=== PATIENT | female | born 1955 | race Two or more races ===

== ENCOUNTER 2025-01-16 11:33 | Inpatient (IN) | payer MEDICARE, MEDICAID, SELFPAY ==
--- NOTE | 2025-01-16 | XR_ITS ---
Examinations: MRI Brain without intravenous contrast. MRA brain without intravenous contrast. 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 The optic chiasm and infundibular stalk are not remarkable. Prepontine and interpeduncular cisterns are not enlarged. No localized enlargement of the medulla or yesi. Fourth ventricle and cerebellar tonsils normal in position. Subacute hemorrhage is not seen. Fourth ventricle is midline. Mass in the cerebellopontine angle region is not evident. 7th and 8th nerve complexes exhibits symmetry. Globes are symmetrical with no retro-orbital mass. Increased white matter signal evident, especially left cerebellar hemisphere left occipital lobe Diffusion-weighted images demonstrate large focus restricted diffusion left cerebellar hemisphere left vermis left cerebellar peduncle smaller foci restricted diffusion left occipital lobe left temporal lobe Mass-effect upon the ventricular system is not identified. MRA carotid images degraded by patient motion. MRA brain images no large vessel occlusions Impression: Acute infarcts left cerebellar hemisphere, left vermis, left cerebellar peduncle, left occipital lobe, left temporal lobe
[2025-01-16 11:39] VITALS: BP 167/78; PULSE 61; RESP 18; TEMP 36.9; O2SAT 91
[2025-01-16 11:40] VITALS: PULSE 67; RESP 20; BMI 26.6
--- NOTE | 2025-01-16 11:51 | EDNOTE_ITS ---
ED General RME/HPI General Chief complaint: Nausea/Vomiting/Diarrhea Stated complaint: NAUSEA, DIZZINESS Time Seen by Provider: 01/16/25 11:39 Arrival date/time: 01/16/25 11:33 RME / HPI RME / HPI narrative: DR. ACKERMAN MAIN ED EVALUATION: 69 year old female with past medical history significant for bipolar disorder, schizophrenia, depression, anxiety presents to the Emergency Department with complaints of dizziness, nausea, and vomiting. She states she had dizziness first 2 days ago and then yesterday nausea and vomiting. She describes her dizziness as the room spinning. Patient also reports a headache for 2 days. Related Data Home Medications ?Medication ?Instructions ?Recorded ?Confirmed divalproex 500 mg tablet,delayed 2 tab PO HS 05/18/22 05/18/22 release trihexyphenidyl 5 mg tablet 1 tab PO BIDWM 05/18/22 ziprasidone HCl 80 mg capsule 1 cap PO BID 05/18/22 Allergies Allergy/AdvReac Type Severity Reaction Status Date / Time No Known Allergies Allergy Verified 01/16/25 11:55 Review of Systems Review of Systems Systems Reviewed: All systems reviewed, normal except as documented Past Medical History Past Medical History PSYCHO/SOCIAL: Positive Schizophrenia and Bipolar Disorder Social History SMOKING STATUS: Never smoker SECOND HAND EXPOSURE: No SUBSTANCE USE: does not use ALCOHOL: Never ED Exam Narrative Physical exam: GENERAL APPEARANCE: AxOx4, generally well-appearing, no acute distress, actively nauseous and vomiting HEENT: NC, AT. MMM. EOMI, clear conjunctiva, oropharynx clear; lateral nystagmus NECK: Supple without lymphadenopathy. No stiffness or restricted ROM. HEART: Normal rate and regular rhythm, normal S1/S1, no m/r/g LUNGS: CTAB, moving air well. No crackles or wheezes are heard. ABDOMEN: Soft, nontender, nondistended with good bowel sounds heard. BACK: No midline C/T/L spine pain or deformity, No CVAT, no obvious deformity. EXTREMITIES: Without cyanosis, clubbing or edema. MUSCULOSKELETAL: FROM of all major joints, no chest tenderness NEUROLOGICAL: Grossly nonfocal. Alert and oriented, moving all 4 extremities. CN not formally tested but appear grossly intact. Observed to ambulate with normal gait. Skin: Warm and dry without any rash. Course Quality Measures none Orders Category Date Time Status EKG (ED ONLY) *Do not use* NOW Care 01/16/25 14:[address] angio stroke protocol Stat Exams 01/16/25 13:[address] head/brain wo con Stat Exams 01/16/25 11:53 Completed EKG (ED Only) Stat Exams 01/16/25 14:04 Ordered XR chest 1V Stat Exams 01/16/25 11:53 Completed CBC Stat Lab 01/16/25 11:57 Completed CMP [Comprehensive Metabolic Panel] Stat Lab 01/16/25 11:57 Completed Misc Send Out* Stat Lab 01/16/25 11:57 Received Partial Thromboplastin Time Stat Lab 01/16/25 14:55 Completed Prothrombin Time with INR Stat Lab 01/16/25 14:55 Completed Troponin I Stat Lab 01/16/25 14:55 Completed Urinalysis Stat Lab 01/16/25 15:40 Completed Aspirin Med 01/16/25 14:04 Discontinued 325 mg PO X1 ONE LORazepam [Ativan Inj] Med 01/16/25 12:08 Discontinued 1 mg IVP X1 ONE Sodium Chloride 0.9% 500 ml [Ns] 500 ml Med 01/16/25 11:51 Discontinued IV 999 mls/hr Reevaluation(s) Reevaluation #1: Spoke with alum plant operator, Oli Navarrete, concerning diagnosis, treatment and need for admission he is amenable to admission Time: 15:32 Vital Signs Vital signs: Vital Signs Temperature 98.5 F 01/16/25 11:39 Pulse Rate 61 01/16/25 11:39 Respiratory Rate 18 01/16/25 11:39 Blood Pressure 167/78 H 01/16/25 11:39 Pulse Oximetry (%) 91 L 01/16/25 11:39 Procedures -ED EKG Interpretation #1: Date of EK01/16/25 Time of EK:42 Rate: 50 Interpretation: Interpreted by me Additional EKG comment: sinus bradycardia, rate 50, widen QRS, IVCD pattern, nonspecific T wave changes, no acute ST wave changes MDM Patient data External records reviewed:: [facility] previous records (Reviewed last admission discharge dated 05/20/22, patient admitted for the following: AMS) Clinical information provided by:: patient Social determinants that could affect healthcare access:: mental health Patient has the following chronic illnesses:: bipolar disorder, schizophrenia, depression, anxiety How is presenting disease/condition affected by chronic disease/condition?: u neffected by Evaluation data The following diagnostics were reviewed and interpreted by me:: lab results and radiology exam(s) Lab and/or radiology exams considered but not ordered:: none Interpretation Summary: Procedure(s): XR chest 1V Accession Number(s): [id number] cc: Emile Ackerman MD; Francisco Hernandez MD~ Examination: AP chest single view Technique one AP portable semiupright chest single view Exam date and time: January 16, 2025 12:16 PM Comparison May 18, 2022 INDICATIONS: Shortness of breath today. FINDINGS: Mild heart failure Mild enlargement cardiac contour Prominent vascular congestion Stable nodules right upper lobe compared to 2021 exam Moderate osteopenia IMPRESSION: Mild heart failure Dictated By: Francisco Hernandez MD Procedure(s): CT head/brain wo con Accession Number(s): [id number] cc: Emile Ackerman MD; Francisco Hernandez MD; NO PRIMARY/FAMILY,PHYSICIAN~ Examination: CT brain head without contrast. 2-D sagittal coronal reconstructions Date and time of exam:07/18/2025 at 1342 hours INDICATIONS: Headache vertigo beginning this morning CTDI: vol (mGy):53.8 DLP: (mGycm):1107 Technique: Multiple CT axial sections of the brain have been obtained, 5 mm slice thickness. Contrast has not been administered. 2-D sagittal, coronal reconstructions have been obtained Low dose protocols were performed. One or more of the following dose reduction techniques were used; automated exposure control, adjustment of the mA and/or KV according to patient size, use of iterative reconstruction technique. Findings: Large acute nonhemorrhagic infarct in the left cerebellar hemisphere, at least 4.7 x 5.0 cm in dimension Mild mass effect upon the fourth ventricle with partial effacement Ventricles are not enlarged Cranial vault intact No acute hemorrhage either intra or extra-axial IMPRESSION: Findings most consistent with large acute nonhemorrhagic infarct left cerebellar hemisphere Dictated By: Francisco Hernandez MD Procedure(s): CT angio stroke protocol Accession Number(s): [id number] cc: Emile Ackerman MD; Francisco Hernandez MD; NO PRIMARY/FAMILY,PHYSICIAN~ Examination: CTA carotids with intravenous contrast CTA brain, head with intravenous contrast. 2-D sagittal, coronal reconstructions. 3-D reconstructions. Exam date and time: January 16, 2025 1427 hours INDICATIONS: Stroke alert, acute nonhemorrhagic infarct left cerebellar hemisphere on CT brain scan January 16, 2025 1342 hours CTDI: vol (mGy) 20.3 DLP: (mGycm) 449 Technique: Multiple CTA axial brain, head carotid images post intravenous contrast injection 100 cc, Isovue-370. 2-D sagittal, coronal reconstructions. 3-D reconstructions, 3-D post processing including vascular maximum intensity projection images. Low dose protocols were performed. One or more of the following dose reduction techniques were used; automated exposure control, adjustment of the mA and/or KV according to patient size, use of iterative reconstruction technique. Findings: Calcified 16mm right thyroid nodule Prominent vascular congestion No significant common carotid carotid bifurcation or internal carotid artery stenoses Dominant left vertebral artery with no critical stenoses Intracranial vertebral arteries basilar artery and posterior cerebral artery branches do fill [place] internal carotid arteries M1 segments middle cerebral arteries middle cerebral artery trifurcation vessels demonstrate no large vessel occlusions as well as anterior cerebral arteries IMPRESSION: No significant neck arterial stenoses No cerebral large vessel arterial occlusions or thrombus Dictated By: Francisco Hernandez MD Medications Medications considered but not ordered:: none Medication administrations:: Medication Administration History Acetaminophen (Acetaminophen 325 Mg Tablet) 650 mg PO Q6H PRN PRN Reason: Pain 1-3 or Fever >100.3 Stop: 02/15/25 15:58 Aspirin (Aspirin Ec 81 Mg Tabec) 81 mg PO QDAY [facility] Stop: 02/16/25 08:59 Atorvastatin Calcium (Atorvastatin Calcium 20 Mg Tablet) 40 mg PO HS [facility] Stop: 02/15/25 20:59 Clopidogrel Bisulfate (Clopidogrel Bisulfate 75 Mg Tablet) 75 mg PO QDAY [facility] Stop: 02/15/25 17:14 Dextrose (Dextrose 50%-Water Inj 50 Ml Syringe) 25 ml IV Q15MIN PRN PRN Reason: BG 50-70 responsive npo pt Stop: 02/15/25 17:05 Dextrose (Dextrose 50%-Water Inj 50 Ml Syringe) 50 ml IV Q15MIN PRN PRN Reason: BG <50 OR BG <70 & pt unresponsive Stop: 02/15/25 17:05 Divalproex Sodium (Divalproex Sod Dr 500 Mg Tablet.Dr) 500 mg PO BID [facility] Stop: 02/15/25 20:59 Glucagon (Glucagon Inj 1 Mg Vial) 1 mg IM Q15MIN PRN PRN Reason: BG <70, and no IV access Heparin Sodium (Porcine) (Heparin Sod Inj 5000 Unit/Ml Vial) 5,000 unit SC Q12HR [facility] Stop: 01/30/25 20:59 Sodium Chloride (Ns) 1,000 mls @ 75 mls/hr IV .[id number] [facility] Stop: 02/15/25 15:59 Last Admin: 01/16/25 16:53 Dose: 75 mls/hr Documented By: KAYODE Insulin Human Lispro (Insulin Lispro (Admelog) 1 Unit/0.01 Ml Unit) 0 unit SC Q6HR [facility]; Protocol Stop: 02/15/25 17:59 Non-Formulary Medication (Trihexyphenidyl Hydrochloride ) 5 mg PO BID [facility] Stop: 02/15/25 20:59 Ondansetron HCl (Ondansetron Inj 2 Mg/Ml Inj 2 Ml) 4 mg IV Q6H PRN; Protocol PRN Reason: NAUSEA OR VOMITING Stop: 02/15/25 15:58 Pantoprazole Sodium (Pantoprazole Inj 40 Mg Vial) 40 mg IVP QDAY [facility] Stop: 02/15/25 16:14 Last Admin: 01/16/25 16:51 Dose: 40 mg Documented By: KAYODE Ziprasidone (Ziprasidone 20 Mg Capsule) 80 mg PO BID [facility] Stop: 02/15/25 20:59 Discontinued Medications Aspirin (Aspirin 325 Mg Tablet) 325 mg PO X1 ONE Stop: 01/16/25 14:05 Last Admin: 01/16/25 14:44 Dose: 325 mg Documented By: ROWENA Sodium Chloride (Ns) 500 mls @ 999 mls/hr IV .Q31M ONE Stop: 01/16/25 12:21 Last Infusion: 01/16/25 13:07 Dose: Infused Documented By: Admin: 01/16/25 12:05 Dose: 999 mls/hr Documented By: KAYODE Lorazepam (Lorazepam 2 Mg/Ml Vial) 1 mg IVP X1 ONE Stop: 01/16/25 12:09 Last Admin: 01/16/25 12:16 Dose: 1 mg Documented By: KAYODE see above Consultations Consultation(s) initiated? (list below): Yes Consultation #1 (Physician, Specialty, Details): Discussed test HPI, PMHx, lab, radiology results and/or management with hospitalist. Will admit for further evaluation and management. Accepts patient for admission. Time: 15:34 Diagnosis Differential Diagnosis ED Complaint MDM: nausea and vomiting, dehydration, electrolyte imbalance Most likely diagnosis given after review of the tests above:: CVA Admission Indicated Admission indicated?: indicated Explain why admission is indicated or not indicated:: Diagnoses meet admission criteria. Admission Request Was there a request for admission?: Yes Admission Attestation Admission request attestation: Discussed case with [] from Hospitalist service regarding admission. Discussed patients ED course, exam findings, labs, and radiology results. The Hospitalist [agrees,declines] to accept the patient for admission. Disposition Plan Disposition Plan: Admit Medical Decision Making MDM Narrative MDM Narrative: IChristiana, am scribing for and in the presence of Dr. Ackerman. Differential Diagnosis Differential Diagnosis: nausea and vomiting, dehydration, electrolyte imbalance Lab Data 01/16/25 11:57 01/16/25 11:57 Labs: Lab Results 01/16/25 01/16/25 01/16/25 Range/Units 11:57 14:55 15:40 WBC 14.5 H (3.6-11.0) Thou/mm3 RBC 4.50 (4.00-5.20) Miln/mm3 Hgb 13.7 (12.0-16.0) g/dL Hct 40.3 (36.0-46.0) % MCV 90 (80-100) fL MCH 30.4 (25.0-35.0) pg MCHC 34.0 (31.0-37.0) g/dl RDW Std Deviation 44.9 (36.4-46.3) fL Plt Count 237 (140-440) Thou/mm3 Neut % (Auto) 79 (37-80) % Lymph % (Auto) 14 (10-50) % [place] % (Auto) 6 (0-12) % Eos % (Auto) 0 (0-10) % Baso % (Auto) 0 (0-2.5) % Neut # (Auto) 11.5 H (1.8-7.7) Thou/mm3 Lymph # (Auto) 2.1 (1.0-4.8) Thou/mm3 [place] # (Auto) 0.9 H (0.0-0.8) Thou/mm3 Eos # (Auto) 0.0 (0.0-0.5) Thou/mm3 Baso # (Auto) 0.0 (0.0-0.2) Thou/mm3 Immature Gran # (Auto) 0.04 H (0.00-0.00) Thou/mm3 Absolute Nucleated RBC 0.00 (0.00-0.00) Thou/mm3 Immature Gran % 0 (0-0) % Nucleated RBC % 0 (0) /100 WBC PT 12.4 H (9.0-12.2) Seconds INR 1.1 (0.9-1.3) APTT 27.3 (22.0-36.0) Seconds Sodium 145 (136-145) mMol/L Potassium 4.0 (3.4-5.1) mMol/L Chloride 109 H (98-107) mMol/L Carbon Dioxide 23.9 (20.0-31.0) mMol/L Anion Gap 12 (7-16) BUN 13 (9-23) mg/dL Creatinine 0.8 (0.6-1.3) mg/dL Estim Creat Clear Calc 68.6 (>60) mL/min eGFR > 60 (60 - ) See Note BUN/Creatinine Ratio 16 (12-20) Ratio Glucose 109 H (74-106) mg/dL Calculated Osmolality 289 (275-295) Calcium 9.4 (8.3-10.6) mg/dL Corrected Calcium 9.4 (8.5-10.1) mg/dL Total Bilirubin 0.5 (0.3-1.2) mg/dL AST 20 (0-34) U/L ALT 21 (10-49) U/L Alkaline Phosphatase 75 (46-116) U/L Troponin I 0.113 H* (0.0-0.045) ng/mL Total Protein 7.7 (5.7-8.2) gm/dL Albumin 4.2 (3.4-4.8) gm/dL Globulin 3.5 (2.3-3.5) gm/dL Albumin/Globulin Ratio 1.2 (1.2-2.2) Ur Collection Type Clean Catch Urine Color Yellow (Lt Yel-Yel) Urine Clarity Clear (Clear/Hazy) Urine pH 6.5 (5.0-7.0) Ur Specific [place] 1.020 (1.001-1.035) Urine Protein 1+ A (Neg - Trace) Urine Glucose (UA) Negative (Negative) Urine Ketones 1+ A (Negative) Urine Blood Trace (Negative) Urine Nitrite Negative (Negative) Urine Bilirubin Negative (Negative) Urine Urobilinogen (Auto) Negative (0.0-1.0) mg/dL Ur Leukocyte Esterase Negative (Negative) Urine RBC 14 H (0-3) /hpf Urine WBC 4 (0-5) /hpf Ur Squamous Epith Cells 4 (0-5) /hpf Urine Bacteria None (None) Critical Care Time Critical Care Time Critical Care Time: Yes Total Critical Care Time (min.): 35 Attestation: The high probability of sudden, clinically significant deterioration in the patient?s condition required the highest level of my preparedness to intervene urgently. The services I provided to this patient were to treat and/or prevent clinically significant deterioration. Services included the following: chart data review, reviewing nursing notes and/or old charts, documentation time, client support consultant collaboration regarding findings and treatment options, medication orders and management, direct patient care, vital sign assessments and ordering, interpreting and reviewing diagnostic studies and lab tests. Aggregate critical care time includes only time during which I was engaged in work directly related to the patient?s care, as described above, whether at bedside or elsewhere in the Emergency Department. It did not include time spent performing other reported procedures or the services of residents, students, nurses or physician assistants. Discharge Plan Plan Patient Disposition: Admit Acute Care w/in Hospital Problem List Clinical Impression: Acute CVA (cerebrovascular accident)
[2025-01-16] MEDS: SODIUM CHLORIDE 0.9% 500 ML 500 ML 999 ML IV (12:05)
[2025-01-16 12:07] LABS: Basophils % (Auto) 0 % (0-2.5); Eosinophils % (Auto) 0 % (0-10); Hematocrit 40.3 % (36.0-46.0); Hemoglobin 13.7 g/dL (12.0-16.0); Immature Granulocytes % (Auto) 0 % (0-0); Immature Granulocytes Auto 0.04 Thou/mm3 (0.00-0.00); Lymphocytes # (Auto) 2.1 Thou/mm3 (1.0-4.8); Lymphocytes % (Auto) 14 % (10-50); Mean Corpuscular Hemoglobin 30.4 pg (25.0-35.0); Mean Corpuscular Volume 90 fL (80-100); Monocytes # (Auto) 0.9 Thou/mm3 (0.0-0.8); Monocytes % (Auto) 6 % (0-12); Neutrophils # (Auto) 11.5 Thou/mm3 (1.8-7.7); Neutrophils % (Auto) 79 % (37-80); Nucleated Red Blood Cell % 0 /100 WBC (0); Platelet Count 237 Thou/mm3 (140-440); RDW Standard Deviation 44.9 fL (36.4-46.3); White Blood Count 14.5 Thou/mm3 (3.6-11.0)
[2025-01-16] MEDS: LORazepam 2 MG/ML VIAL 1 MG IVP (12:16)
[2025-01-16 12:18] LABS: Misc Send Out* See Sep Rpt
[2025-01-16 12:25] LABS: Alanine Aminotransferase 21 U/L (10-49); Albumin, Serum 4.2 gm/dL (3.4-4.8); Albumin/Globulin Ratio 1.2 (1.2-2.2); Alkaline Phosphatase 75 U/L (46-116); Anion Gap 12 (7-16); Aspartate Amino Transferase 20 U/L (0-34); BUN/Creatinine Ratio 16 Ratio (12-20); Bilirubin,Total 0.5 mg/dL (0.3-1.2); Blood Urea Nitrogen 13 mg/dL (9-23); Calcium 9.4 mg/dL (8.3-10.6); Calcium (Corrected) 9.4 mg/dL (8.5-10.1); Carbon Dioxide 23.9 mMol/L (20.0-31.0); Chloride 109 mMol/L (98-107); Creatinine (Component) 0.8 mg/dL (0.6-1.3); Estimated Creatinine Clearance 68.6 mL/min (>60); Globulin 3.5 gm/dL (2.3-3.5); Glucose 109 mg/dL (74-106); Osmolality,Calculated 289 (275-295); Sodium 145 mMol/L (136-145); Total Protein 7.7 gm/dL (5.7-8.2); eGFR > 60 See Note
[2025-01-16 13:14] VITALS: BP 123/62; PULSE 54; RESP 21; TEMP 36.2; O2SAT 98
--- NOTE | 2025-01-16 13:55 | XR_ITS ---
Examination: CTA carotids with intravenous contrast CTA brain, head with intravenous contrast. 2-D sagittal, coronal reconstructions. 3-D reconstructions. Exam date and time: January 16, 2025 1427 hours INDICATIONS: Stroke alert, acute nonhemorrhagic infarct left cerebellar hemisphere on CT brain scan January 16, 2025 1342 hours CTDI: vol (mGy) 20.3 DLP: (mGycm) 449 Technique: Multiple CTA axial brain, head carotid images post intravenous contrast injection 100 cc, Isovue-370. 2-D sagittal, coronal reconstructions. 3-D reconstructions, 3-D post processing including vascular maximum intensity projection images. Low dose protocols were performed. One or more of the following dose reduction techniques were used; automated exposure control, adjustment of the mA and/or KV according to patient size, use of iterative reconstruction technique. Findings: Calcified 16mm right thyroid nodule Prominent vascular congestion No significant common carotid carotid bifurcation or internal carotid artery stenoses Dominant left vertebral artery with no critical stenoses Intracranial vertebral arteries basilar artery and posterior cerebral artery branches do fill [place] internal carotid arteries M1 segments middle cerebral arteries middle cerebral artery trifurcation vessels demonstrate no large vessel occlusions as well as anterior cerebral arteries IMPRESSION: No significant neck arterial stenoses No cerebral large vessel arterial occlusions or thrombus
--- NOTE | 2025-01-16 14:10 | PC.NURSE ---
SPOKE WITH DR MARES. PER DR MARES NO NEED TO STROKE ALERT PT BECAUSE ONSET OF SYMPTOMS WAS 2 DAYS AGO
[2025-01-16] MEDS: Aspirin 325 MG TABLET PO (14:44)
[2025-01-16 15:34] LABS: INR 1.1 (0.9-1.3); Partial Thromboplastin Time 27.3 Seconds (22.0-36.0); Prothrombin Time 12.4 Seconds (9.0-12.2)
[2025-01-16 15:53] LABS: Troponin I 0.113 ng/mL (0.0-0.045)
[2025-01-16 15:56] LABS: Collection Type, Urine Clean Catch
[2025-01-16 16:05] LABS: Bilirubin,Urine Negative (Negative); Blood,Urine Trace (Negative); Clarity,Urine Clear (Clear/Hazy); Color,Urine Yellow (Lt Yel-Yel); Glucose, Urine Negative (Negative); Ketones,Urine 1+ (Negative); Leukocyte Esterase,Urine Negative (Negative); Nitrite,Urine Negative (Negative); PH,Urine 6.5 (5.0-7.0); Protein,Urine 1+ (Neg - Trace); RBC,Urine 14 /hpf (0-3); Squamous Epithelial Cell,Urine 4 /hpf (0-5); Urobilinogen,Urine Negative mg/dL (0.0-1.0); WBC,Urine 4 /hpf (0-5)
--- NOTE | 2025-01-16 16:33 | ESHP_ITS ---
Documentation for date of: 01/16/25 HPI History of Present Illness History of present illness: CC: Dizziness Patient is a 69-year-old female with a past medical history of schizophrenia and bipolar disorder, history of depression and anxiety who presented to the emergency room with a chief complaint of dizziness and nausea. Patient stated that she fell 2 days ago after experiencing pre-syncopal event. Patient stated she felt the room was spinning and developed a headache. Patient fell onto the floor facing forward but did not lose consciousness. Patient denied seizure- like activity. Patient denied history of orthostatic vitals. Patient denied history of diabetes mellitus or hypertension. Patient stated she follows a psychiatrist with [facility]. Patient has not followed up with a primary care physician. Patient denies chest pain. Patient denies SOB. Denies recent sick contacts. ER Course: Vitals in the ER, blood pressure 167/78, heart 61, RR 18, 91% on room air. WBC 14.5 elevated with hemoglobin within normal limits. CMP showed sodium within normal limits 145, potassium 4 bicarb 23.9 anion gap of 12, renal function within normal limits, GFR greater than 60, glucose 109, A1c 5.3 Troponin 0.113, 0.083 downtrending EKG not uploaded, but ordered UA showing protein, ketones, RBCs 14, Stroke alert not called given greater than 48 hours patient is not a candidate for tPA/No tele neuro Head CT: Large acute nonhemorrhagic infarct left side of cerebellar hemisphere Admitted for for ischemic stroke of left cerebellar hemisphere. PMH: Bipolar Schizophrenia hx of depression (no meds currently) hx of anxiety (non meds currently) Past Surgical History: None Past Family History: unknown patient is not sure Home Medication: Divalpoex Trihexyphenidyl Ziprasidone Social History: no illicit drug use no alcohol use no smoking history *patient lives in hotel as primary home Allergies: None Code Status: Full Code Review of Systems Review of Systems Narrative Review of Systems: General appearance: NO weight change, NO fatigue, NO weakness, NO fever, NO chills, NO night sweats, No cough Skin: NO rash, NO itching, NO sores, NO moles HEENT: Yes Trauma-chin, NO nausea, NO vomiting, NO visual changes, NO blurry vision, NO double vision, NO tinnitus, NO vertigo, NO ear discharge, NO rhinorrhea, NO stuffiness, NO sneezing, NO allergy, NO epistaxis. NO Hoarseness, NO sore throat, NO swollen neck. Cardiac: NO Palpitations, NO dyspnea on exertion, NO orthopnea, NO paroxysmal nocturnal dyspnea, NO edema Respiratory: NO Shortness of Breath, NO Wheezing, NO Cough, NO Sputum, NO hemoptysis GI:NO appetite, NO nausea, NO vomiting, NO dysphagia, NO changes in bowel frequency, NO stool color, NO diarrhea, NO constipation, NO hemetemesis, NO hemorrhoids, NO melena, NO hematechezia, NO abdominal pain, NO jaundice Renal: NO frequency, NO hesitancy, NO urgency, NO hematuria, NO nocturia, NO incontinence MSK: NO muscle weakness, NO gout, NO arthritis, NO muscle stiffness Neuro: YES headaches, NO tremors, YES weakness, NO paralysis, NO seizures, NO loss of consciousness, NO numbness. Hem: NO anemia, NO easy bruising/bleeding, NO petechiae, NO purpura Endo: NO heat/cold intolerance, NO excessive sweating, NO polyuria, NO polydipsia, NO polyphagia, NO thyroid problems, NO diabetes Pysch: NO mood, NO anxiety, NO depression, Yes bipolar & Schizophrenia Exam Vital Signs Temp Pulse Resp BP Pulse Ox 97.1 F 54 L 21 H 123/62 98 01/16/25 13:14 01/16/25 13:14 01/16/25 13:14 01/16/25 13:14 01/16/25 13:14 Narrative Exam General Appearance: Alert & Oriented X3, well-nourished female who is lying in bed in no acute distress HEENT: Skull symmetrical and atraumatic. Mild open wound on chin. Conjunctivae pin and moist. Pupils equal, round, reactive to light and accommodation (PERRL). External ear without lesion or discharge. Straight, nares patient, mucosa pink, no discharge. Cardio: Normal Rate and Rhythm with S1 and S2 heart sounds. Difficult to appreciate murmurs given body habitus. No bruits on carotid auscultation. No peripheral edema or cyanosis. Lungs: Symmetric with good expansion. Chest and back non-tender. Breath sounds vesicular without crackles, wheezing or rhonchi Abdomen: Non-tender, Non-distended, Normal Reactive Bowel Sounds, non tender suprapubic region Neuro: Yes Alert, Yes cooperative, Yes oriented to person, place, and time. slurred. CN grossly intact. Right facial drop, mild, depressed nsal labial folds, tongue deviated to the right. Upper motor strength 5/5 and Lower motor strength 4/5. Sensation intact. Results: Labs 01/16/25 11:57 01/16/25 11:57 Labs: Short CBC 01/16/25 Range/Units 11:57 WBC 14.5 H (3.6-11.0) Thou/mm3 Hgb 13.7 (12.0-16.0) g/dL Hct 40.3 (36.0-46.0) % Plt Count 237 (140-440) Thou/mm3 BMP 01/16/25 11:57 Sodium 145 Potassium 4.0 Chloride 109 H Carbon Dioxide 23.9 BUN 13 Creatinine 0.8 Glucose 109 H Calcium 9.4 Cardiac Enzymes 01/16/25 Range/Units 14:55 Troponin I 0.113 H* (0.0-0.045) ng/mL Liver Function 01/16/25 Range/Units 11:57 Total Bilirubin 0.5 (0.3-1.2) mg/dL AST 20 (0-34) U/L ALT 21 (10-49) U/L Alkaline Phosphatase 75 (46-116) U/L Albumin 4.2 (3.4-4.8) gm/dL Urine 01/16/25 Range/Units 15:40 Urine Color Yellow (Lt Yel-Yel) Urine Clarity Clear (Clear/Hazy) Urine pH 6.5 (5.0-7.0) Ur Specific [place] 1.020 (1.001-1.035) Urine Protein 1+ A (Neg - Trace) Urine Glucose (UA) Negative (Negative) Quality Measures Quality Measures none Advance care planning discussed with:: patient Medications Home Medications and Allergies Home Medications ?Medication ?Instructions ?Recorded ?Confirmed ?Type divalproex 500 mg tablet,delayed 2 tab PO HS 05/18/22 05/18/22 History release trihexyphenidyl 5 mg tablet 1 tab PO BIDWM 05/18/22 History ziprasidone HCl 80 mg capsule 1 cap PO BID 05/18/22 History Allergies Allergy/AdvReac Type Severity Reaction Status Date / Time No Known Allergies Allergy Verified 01/16/25 11:55 Visit Medications Acetaminophen (Acetaminophen 325 Mg Tablet) 650 mg PO Q6H PRN PRN Reason: Pain 1-3 or Fever >100.3 Stop: 02/15/25 15:58 Heparin Sodium (Porcine) (Heparin Sod Inj 5000 Unit/Ml Vial) 5,000 unit SC Q12HR [facility] Stop: 01/30/25 20:59 Sodium Chloride (Ns) 1,000 mls @ 75 mls/hr IV .[id number] MELA Stop: 02/15/25 15:59 Ondansetron HCl (Ondansetron Inj 2 Mg/Ml Inj 2 Ml) 4 mg IV Q6H PRN; Protocol PRN Reason: NAUSEA OR VOMITING Stop: 02/15/25 15:58 Pantoprazole Sodium (Pantoprazole Inj 40 Mg Vial) 40 mg IVP QDAY [facility] Stop: 02/15/25 16:14 Discontinued Medications Aspirin (Aspirin 325 Mg Tablet) 325 mg PO X1 ONE Stop: 01/16/25 14:05 Last Admin: 01/16/25 14:44 Dose: 325 mg Sodium Chloride (Ns) 500 mls @ 999 mls/hr IV .Q31M ONE Stop: 01/16/25 12:21 Last Infusion: 01/16/25 13:07 Dose: Infused Lorazepam (Lorazepam 2 Mg/Ml Vial) 1 mg IVP X1 ONE Stop: 01/16/25 12:09 Last Admin: 01/16/25 12:16 Dose: 1 mg Assessment & Plan Plan Patient is a 69-year-old female with a past medical history of schizophrenia and bipolar disorder, history of depression and anxiety who was admitted for ischemic stroke. #CVA Etiology: Ischemic stroke noted on MRI, likely secondary to clot or plaque Diagnostics: Head CT: Large acute nonhemorrhagic infarct left side of cerebellar hemisphere Plan: -Aspirin loading dose in ER -Clopidogrel 75 mg Qday -Aspirin 81 mg Qday starting tomorrow. -MRI brain w/o contrast -Neuro Checks Q4 hours -Aspiration Precautions, Head of bed 30 degrees -Bedside swallow screen and evaluation -Euglycemia and avoid Hyperthermia -Acetaminophen PRN -NPO -NS 1 L @ 75 cc -BNP and CBC -A1c -Lipid Panel -TSH -No permissive HTN given patient is >48 hrs since symptoms first note. -Hydralzine PRN given soft HR -Sliding Scale -Neurology consulted, Appreciate recommendation, Dr. Youssef #Leukocytosis Likely reactive given recent stroke vs infection less likely given UTI shows no bacteria and patient is not complaining of any urinary symptoms vs URI less likely given negative cough or sob. Plan: -Monitor #Starvation Ketosis Ketones notes on UA with borderline anion gap of 12, this is likely starvation ketosis as patinet has not been able to keep food down secondary to nausea vs less likely secondary to mediation vs less likely secondary to DKA given no history of diabetes and A1c within normal limits Plan: No acute intervention #Schizophrenia and Bipolar disorder #hx of Depression #hx of Anxiety Past medical history of schizophrenia and bipolar who is complicant with medication. Plan: Continue Divalprex, Trihexyphenidly, and ziprasidone home medication. Health Maintenance: Disp: Pt is currently admitted to floors for further management of stroke, awaiting MRI and echo FEN: NPO-->spending speech evaluation given slurred speech DVT: on subQ heparin Code: Full - The patient's plan was discussed with attending Dr. Taylor Chadwick MD PGY1 Internal Medicine Attending Provider Attestation/Addendum I have discussed and was present for the essential components of the history, physical examination, diagnosis, and treatment plan with the resident. I agree with the patient's care as documented by the resident and amended herein by me. Rito Vazquez DO. Patient seen and evaluated in the ED, in short, 69-year-old female with significant past medical history of bipolar disorder, schizophrenia, depression anxiety, presented with dizziness which began greater than 48 hours ago and nausea and vomiting which began yesterday. Patient subsequently admitted for possible CVA. In the ED, vital signs stable, patient afebrile, stroke alert was called, WBC 14.5, CMP largely unremarkable, initial troponin 0.113, urinalysis pending. CT head demonstrated a large acute infarct in the left cerebellum, CTA head negative. Aspirin 325 mg was given in the ED. Teleneuro was not consulted due to the patient's symptoms beginning greater than 48 hours ago, in-house neurology however was consulted by us. Patient admitted to telemetry, aspirin and Plavix will be continued/started, usual stroke measures to include neurochecks, head of bed greater than 30 degrees, speech evaluation ordered. MRI brain and echo ordered. A lipid panel and A1c will also be ordered and we will trend the patient's troponin which is likely elevated secondary to demand ischemia. Physical therapy has also been ordered Although this document has been carefully reviewed, there may still be some phonetic and other typographical errors. These errors are purely grammatical due to imperfections in the software program and should not be construed in any way to compromise the substance of the patient's medical care during this visit.
[2025-01-16] MEDS: PANTOPRAZOLE INJ 40 MG VIAL IVP (16:51)
[2025-01-16] MEDS: SODIUM CHLORIDE 0.9% 1000 ML 1,000 ML 75 ML IV (16:53)
[2025-01-16 17:23] VITALS: BP 140/110; PULSE 60; RESP 17; O2SAT 94
[2025-01-16 17:50] LABS: Glucose Estimated Average 105 mg/dL (80-131); Hemoglobin A1C 5.3 % Hgb (4.8-6.0)
[2025-01-16 18:23] VITALS: BP 151/61; PULSE 52; RESP 18; TEMP 37; O2SAT 96
--- NOTE | 2025-01-16 19:00 | PC.NURSE ---
Assumed care for the patient from Frida MANCERA. Pt resting comfortably in bed no signs of distress. Pt vitals done medications given. will continue to monitor.
[2025-01-16 19:11] LABS: Troponin I 0.083 ng/mL (0.0-0.045)
[2025-01-16] MEDS: CLOPIDOGREL BISULFATE 75 MG TABLET PO (19:32)
[2025-01-16 20:00] VITALS: BP 157/74; PULSE 75; RESP 19; TEMP 36.9; O2SAT 97
[2025-01-16] MEDS: ATORVASTATIN CALCIUM 20 MG TABLET 40 MG PO (21:30)
[2025-01-16] MEDS: DIVALPROEX SOD DR 500 MG TABLET.DR PO (21:31)
[2025-01-16] MEDS: HEPARIN SOD INJ 5000 UNIT/ML VIAL SC (21:31)
[2025-01-16] MEDS: ZIPRASIDONE 20 MG CAPSULE 80 MG PO (21:31)
--- NOTE | 2025-01-16 23:02 | PC.NURSE ---
Report called to Haja MANCERA
[2025-01-16 23:52] LABS: Troponin I 0.069 ng/mL (0.0-0.045)
[2025-01-17] VITALS (9 sets, daily range): BP systolic 109–161; BP diastolic 63–85; PULSE 43–84; RESP 14–93; TEMP 36.2–36.4; O2SAT 95–97; BMI 30.6; BMI 11.0
--- NOTE | 2025-01-17 00:10 | ESPR_ITS ---
Documentation for date of: 01/17/25 Subjective Subjective Interval history: Patient is in telemetry. No new symptoms reported other than s a concern of bradycardia Exam - Neurology Vital Signs Temp Pulse Resp BP Pulse Ox O2 Del Method 98.4 F 75 19 157/74 H 97 Room Air 01/16/25 20:00 01/16/25 20:00 01/16/25 20:00 01/16/25 20:00 01/16/25 20:00 01/16/25 20:00 Objective Labs 01/19/25 04:52 01/19/25 04:52 Labs: Laboratory Results - last 24 hr 01/16/25 01/16/25 01/16/25 11:57 14:55 15:40 WBC 14.5 H RBC 4.50 Hgb 13.7 Hct 40.3 MCV 90 MCH 30.4 MCHC 34.0 RDW Std Deviation 44.9 Plt Count 237 Neut % (Auto) 79 Lymph % (Auto) 14 [place] % (Auto) 6 Eos % (Auto) 0 Baso % (Auto) 0 Neut # (Auto) 11.5 H Lymph # (Auto) 2.1 [place] # (Auto) 0.9 H Eos # (Auto) 0.0 Baso # (Auto) 0.0 Immature Gran # (Auto) 0.04 H Absolute Nucleated RBC 0.00 Immature Gran % 0 Nucleated RBC % 0 PT 12.4 H INR 1.1 APTT 27.3 Sodium 145 Potassium 4.0 Chloride 109 H Carbon Dioxide 23.9 Anion Gap 12 BUN 13 Creatinine 0.8 Estim Creat Clear Calc 68.6 eGFR > 60 BUN/Creatinine Ratio [address] Glu mg/dL 105 Hemoglobin A1c 5.3 Calculated Osmolality 289 Calcium 9.4 Corrected Calcium 9.4 Total Bilirubin 0.5 AST 20 ALT 21 Alkaline Phosphatase 75 Troponin I 0.113 H* Total Protein 7.7 Albumin 4.2 Globulin 3.5 Albumin/Globulin Ratio 1.2 Ur Collection Type Clean Catch Urine Color Yellow Urine Clarity Clear Urine pH 6.5 Ur Specific [place] 1.020 Urine Protein 1+ A Urine Glucose (UA) Negative Urine Ketones 1+ A Urine Blood Trace Urine Nitrite Negative Urine Bilirubin Negative Urine Urobilinogen (Auto) Negative Ur Leukocyte Esterase Negative Urine RBC 14 H Urine WBC 4 Ur Squamous Epith Cells 4 Urine Bacteria None 04/04/25 04/04/25 18:30 23:08 WBC RBC Hgb Hct MCV MCH MCHC RDW Std Deviation Plt Count Neut % (Auto) Lymph % (Auto) [place] % (Auto) Eos % (Auto) Baso % (Auto) Neut # (Auto) Lymph # (Auto) [place] # (Auto) Eos # (Auto) Baso # (Auto) Immature Gran # (Auto) Absolute Nucleated RBC Immature Gran % Nucleated RBC % PT INR APTT Sodium Potassium Chloride Carbon Dioxide Anion Gap BUN Creatinine Estim Creat Clear Calc eGFR BUN/Creatinine Ratio Glucose Estimated Ave Glu mg/dL Hemoglobin A1c Calculated Osmolality Calcium Corrected Calcium Total Bilirubin AST ALT Alkaline Phosphatase Troponin I 0.083 H* 0.069 H* Total Protein Albumin Globulin Albumin/Globulin Ratio Ur Collection Type Urine Color Urine Clarity Urine pH Ur Specific [place] Urine Protein Urine Glucose (UA) Urine Ketones Urine Blood Urine Nitrite Urine Bilirubin Urine Urobilinogen (Auto) Ur Leukocyte Esterase Urine RBC Urine WBC Ur Squamous Epith Cells Urine Bacteria Assessment & Plan Assessment and plan (1) Acute CVA (cerebrovascular accident): Status: Acute Assessment and plan: MRI brain showed Acute nonhemorrhagic infarction in the left cerebellar hemisphere left cerebral peduncle left occipital lobe and temporal lobe. Continue with aspirin and statin. Needs cardiology consult for transesophageal echocardiogram to rule out embolic source. Continue to monitor her closely as the stroke involves the posterior fossa close to the fourth ventricle. Continue with physical therapy, Occupational Therapy and speech. (2) Bipolar disorder: Status: Chronic Assessment and plan: Continue with home meds (3) Schizophrenia: Status: Chronic Assessment and plan: Continue with home meds
[2025-01-17 05:26] LABS: Basophils # (Auto) 0.1 Thou/mm3 (0.0-0.2); Basophils % (Auto) 1 % (0-2.5); Eosinophils % (Auto) 0 % (0-10); Hematocrit 36.3 % (36.0-46.0); Immature Granulocytes % (Auto) 0 % (0-0); Immature Granulocytes Auto 0.03 Thou/mm3 (0.00-0.00); Lymphocytes # (Auto) 2.9 Thou/mm3 (1.0-4.8); Lymphocytes % (Auto) 27 % (10-50); Mean Corpuscular HGB Conc 33.1 g/dl (31.0-37.0); Mean Corpuscular Hemoglobin 29.9 pg (25.0-35.0); Mean Corpuscular Volume 91 fL (80-100); Monocytes # (Auto) 0.8 Thou/mm3 (0.0-0.8); Monocytes % (Auto) 7 % (0-12); Neutrophils % (Auto) 65 % (37-80); Nucleated Red Blood Cell % 0 /100 WBC (0); Platelet Count 211 Thou/mm3 (140-440); RDW Standard Deviation 45.8 fL (36.4-46.3); Red Blood Count 4.01 Miln/mm3 (4.00-5.20); White Blood Count 10.9 Thou/mm3 (3.6-11.0)
[2025-01-17 06:02] LABS: Alanine Aminotransferase 17 U/L (10-49); Albumin, Serum 3.6 gm/dL (3.4-4.8); Albumin/Globulin Ratio 1.2 (1.2-2.2); Alkaline Phosphatase 66 U/L (46-116); Anion Gap 10 (7-16); Aspartate Amino Transferase 20 U/L (0-34); BUN/Creatinine Ratio 19 Ratio (12-20); Bilirubin,Total 0.5 mg/dL (0.3-1.2); Blood Urea Nitrogen 13 mg/dL (9-23); Calcium 8.2 mg/dL (8.3-10.6); Calcium (Corrected) 8.5 mg/dL (8.5-10.1); Carbon Dioxide 25.5 mMol/L (20.0-31.0); Cardiac Risk Estimate 3.7 RATIO (3.7-5.6); Chloride 108 mMol/L (98-107); Cholesterol 141 mg/dL (132-200); Creatinine (Component) 0.7 mg/dL (0.6-1.3); Estimated Creatinine Clearance 78.5 mL/min (>60); Globulin 2.9 gm/dL (2.3-3.5); Glucose 82 mg/dL (74-106); HDL Cholesterol 38 mg/dL (40-60); LDL Cholesterol,Calculated 80 mg/dL (0-130); Magnesium 2.3 mg/dL (1.6-2.6); Osmolality,Calculated 284 (275-295); Phosphorous 2.9 mg/dL (2.4-5.1); Potassium 3.5 mMol/L (3.4-5.1); Sodium 143 mMol/L (136-145); Total Protein 6.5 gm/dL (5.7-8.2); Triglycerides 116 mg/dL (30-150); eGFR > 60 See Note
[2025-01-17 06:04] LABS: Troponin I 0.054 ng/mL (0.0-0.045)
[2025-01-17] MEDS: Aspirin 325 MG TABLET PO (08:46)
[2025-01-17] MEDS: HEPARIN SOD INJ 5000 UNIT/ML VIAL SC ×2 (08:46→20:50)
[2025-01-17] MEDS: ZIPRASIDONE 20 MG CAPSULE 80 MG PO ×2 (08:46→20:49)
[2025-01-17] MEDS: PANTOPRAZOLE INJ 40 MG VIAL IVP (08:46)
[2025-01-17] MEDS: DIVALPROEX SOD DR 500 MG TABLET.DR PO ×2 (08:47→20:49)
[2025-01-17] MEDS: SODIUM CHLORIDE 0.9% 1000 ML 1,000 ML 75 ML IV (08:47)
[2025-01-17] MEDS: POTASSIUM CHLORIDE 20 mEq TABCR PO (08:47)
--- NOTE | 2025-01-17 10:09 | EKG_ITS ---
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
--- NOTE | 2025-01-17 12:13 | ESPR_ITS ---
Documentation for date of: 01/17/25 Subjective Subjective Interval history: Minial urine output overnight. Bladder scanned once with minimal retioin of urine. Scanned for a second time this morning with less than 100 cc of urine. Patient deneid chest pain or SOB. Denied dizziness or blurry vision. Mild headache. Patient denied supra-pubic tenderness. Updated patient on MRI findings. PT-->rec may go home if caregiver is supporitve & Available, if not SNF placement recommended. Patient passed swallow screen and evaluation, transitioned to Diet Dysphagia 3. EKG not taken while patient was in ED overnight. Re-ordered. EKG showed right bundle branch block possible atrial flutter as p waves present on lead II. Pending cardio recommendaiton and echo. Exam Vital Signs Temp Pulse Resp BP Pulse Ox O2 Del Method 97.2 F 58 L 17 161/83 H 95 Room Air 01/17/25 11:56 01/17/25 11:56 01/17/25 11:56 01/17/25 11:56 01/17/25 11:56 01/17/25 11:56 Narrative Exam LGeneral Appearance: Alert & Oriented X2, well-nourished female who is lying in bed in no acute distress HEENT: Skull symmetrical and atraumatic. Conjunctivae pin and moist. Pupils equal, round, reactive to light and accommodation (PERRL). External ear without lesion or discharge. Straight, nares patient, mucosa pink, no discharge. No thyroid nodule appreciated. No cervical lymphadenopathy. Cardio: Marty Rate and Rhythm with S1 and S2 heart sounds. No murmurs or extra heart sounds auscultated. No bruits on carotid auscultation. No peripheral edema or cyanosis. Lungs: Symmetric with good expansion. Chest and back non-tender. Breath sounds vesicular without crackles, wheezing or rhonchi Abdomen: Non-tender, Non-distended, Normal Reactive Bowel Sounds Neuro: Alert, cooperative, oriented to person, place, and No time. Speech dysarthic. Mild Right facial droop. CN grossly intact. Upper motor strength 5/5 and Lower motor strength 4/5. Sensation intact. Objective Labs 01/17/25 04:49 01/17/25 04:49 Labs: Laboratory Results - last 24 hr 01/16/25 01/16/25 01/16/25 11:57 14:55 15:40 WBC 14.5 H RBC 4.50 Hgb 13.7 Hct 40.3 MCV 90 MCH 30.4 MCHC 34.0 RDW Std Deviation 44.9 Plt Count 237 Neut % (Auto) 79 Lymph % (Auto) 14 [place] % (Auto) 6 Eos % (Auto) 0 Baso % (Auto) 0 Neut # (Auto) 11.5 H Lymph # (Auto) 2.1 [place] # (Auto) 0.9 H Eos # (Auto) 0.0 Baso # (Auto) 0.0 Immature Gran # (Auto) 0.04 H Absolute Nucleated RBC 0.00 Immature Gran % 0 Nucleated RBC % 0 PT 12.4 H INR 1.1 APTT 27.3 Sodium 145 Potassium 4.0 Chloride 109 H Carbon Dioxide 23.9 Anion Gap 12 BUN 13 Creatinine 0.8 Estim Creat Clear Calc 68.6 eGFR > 60 BUN/Creatinine Ratio [address] Glu mg/dL 105 Hemoglobin A1c 5.3 Calculated Osmolality 289 Calcium 9.4 Corrected Calcium 9.4 Phosphorus Magnesium Total Bilirubin 0.5 AST 20 ALT 21 Alkaline Phosphatase 75 Troponin I 0.113 H* Total Protein 7.7 Albumin 4.2 Globulin 3.5 Albumin/Globulin Ratio 1.2 Triglycerides Cholesterol LDL Cholesterol, Calc HDL Cholesterol Cholesterol/HDL Ratio TSH Ur Collection Type Clean Catch Urine Color Yellow Urine Clarity Clear Urine pH 6.5 Ur Specific [place] 1.020 Urine Protein 1+ A Urine Glucose (UA) Negative Urine Ketones 1+ A Urine Blood Trace Urine Nitrite Negative Urine Bilirubin Negative Urine Urobilinogen (Auto) Negative Ur Leukocyte Esterase Negative Urine RBC 14 H Urine WBC 4 Ur Squamous Epith Cells 4 Urine Bacteria None 01/16/25 01/16/25 01/17/25 18:30 23:08 04:49 WBC 10.9 RBC 4.01 Hgb 12.0 Hct 36.3 MCV 91 MCH 29.9 MCHC 33.1 RDW Std Deviation 45.8 Plt Count 211 Neut % (Auto) 65 Lymph % (Auto) 27 [place] % (Auto) 7 Eos % (Auto) 0 Baso % (Auto) 1 Neut # (Auto) 7.0 Lymph # (Auto) 2.9 [place] # (Auto) 0.8 Eos # (Auto) 0.0 Baso # (Auto) 0.1 Immature Gran # (Auto) 0.03 H Absolute Nucleated RBC 0.00 Immature Gran % 0 Nucleated RBC % 0 PT INR APTT Sodium 143 Potassium 3.5 D Chloride 108 H Carbon Dioxide 25.5 Anion Gap 10 BUN 13 Creatinine 0.7 Estim Creat Clear Calc 78.5 eGFR > 60 BUN/Creatinine Ratio [address] Glu mg/dL Hemoglobin A1c Calculated Osmolality 284 Calcium 8.2 L Corrected Calcium 8.5 Phosphorus 2.9 Magnesium 2.3 Total Bilirubin 0.5 AST 20 ALT 17 Alkaline Phosphatase 66 Troponin I 0.083 H* 0.069 H* 0.054 H* Total Protein 6.5 Albumin 3.6 D Globulin 2.9 Albumin/Globulin Ratio 1.2 Triglycerides 116 Cholesterol 141 LDL Cholesterol, Calc 80 HDL Cholesterol 38 L Cholesterol/HDL Ratio 3.7 TSH 4.60 Ur Collection Type Urine Color Urine Clarity Urine pH Ur Specific [place] Urine Protein Urine Glucose (UA) Urine Ketones Urine Blood Urine Nitrite Urine Bilirubin Urine Urobilinogen (Auto) Ur Leukocyte Esterase Urine RBC Urine WBC Ur Squamous Epith Cells Urine Bacteria Quality Measures Quality Measures none Advance care planning discussed with:: patient Assessment & Plan Assessment Current Active Medications: Generic Name Dose Route Start Last Admin Trade Name Freq PRN Reason Stop Dose Admin Acetaminophen 650 mg 01/16/25 15:59 Acetaminophen 325 Mg Tablet PO 02/15/25 15:58 Q6H PRN Pain 1-3 or Fever >100.3 Aspirin 325 mg 01/17/25 09:00 01/17/25 08:46 Aspirin 325 Mg Tablet PO 02/16/25 08:59 325 mg QDAY MELA Administration Atorvastatin Calcium 40 mg 01/16/25 21:00 01/16/25 21:30 Atorvastatin Calcium 20 Mg Tablet PO 02/15/25 20:59 40 mg HS MELA Administration Dextrose 25 ml 01/16/25 17:06 Dextrose 50%-Water Inj 50 Ml Syringe IV 02/15/25 17:05 Q15MIN PRN BG 50-70 responsive npo pt Dextrose 50 ml 01/16/25 17:06 Dextrose 50%-Water Inj 50 Ml Syringe IV 02/15/25 17:05 Q15MIN PRN BG <50 OR BG <70 & pt unresponsive Divalproex Sodium 500 mg 01/16/25 21:00 01/17/25 08:[address] 500 Mg Tablet.Dr PO 02/15/25 20:59 500 mg BID MELA Administration Glucagon 1 mg 01/16/25 17:06 Glucagon Inj 1 Mg Vial IM Q15MIN PRN BG <70, and no IV access Heparin Sodium (Porcine) 5,000 unit 01/16/25 21:00 01/17/25 08:46 Heparin Sod Inj 5000 Unit/Ml Vial SC 01/30/25 20:59 5,000 unit Q12HR MELA Administration Hydralazine HCl 10 mg 01/16/25 19:45 Hydralazine Inj 20 Mg/Ml Vial IV 02/15/25 19:44 Q4HR PRN Hypertension Sodium Chloride 1,000 mls @ 75 mls/hr 01/16/25 16:00 01/17/25 08:47 Ns IV 02/15/25 15:59 75 mls/hr .[id number] MELA Administration Insulin Human Lispro 0 unit 01/16/25 18:00 01/17/25 05:19 Insulin Lispro (Admelog) 1 Unit/0.01 Ml Unit SC 02/15/25 17:59 Not Given Q6HR [facility] Protocol Non-Formulary Medication 5 mg 01/16/25 21:00 Trihexyphenidyl Hydrochloride PO 02/15/25 20:59 BID MELA Ondansetron HCl 4 mg 01/16/25 15:59 Ondansetron Inj 2 Mg/Ml Inj 2 Ml IV 02/15/25 15:58 Q6H PRN NAUSEA OR VOMITING Protocol Pantoprazole Sodium 40 mg 01/16/25 16:15 01/17/25 08:46 Pantoprazole Inj 40 Mg Vial IVP 02/15/25 16:14 40 mg QDAY MELA Administration Ziprasidone 80 mg 01/16/25 21:00 01/17/25 08:46 Ziprasidone 20 Mg Capsule PO 02/15/25 20:59 80 mg BID MELA Administration Plan Patient is a 69-year-old female with a past medical history of schizophrenia and bipolar disorder, history of depression and anxiety who was admitted for ischemic stroke. #CVA Etiology: Ischemic stroke noted on MRI, likely secondary to embolic or plaque Diagnostics: MRI: Acute infarcts left cerebellar hemisphere, left vermis, left cerebellar peduncle, left occipital lobe, left temporal lobe Head CT: Large acute nonhemorrhagic infarct left side of cerebellar hemisphere Plan: -Aspirin 325 mg once a day -Neuro Checks Q4 hours -Aspiration Precautions, Head of bed 30 degrees -Bedside swallow screen and evaluation -Euglycemia and avoid Hyperthermia -Acetaminophen PRN -Mechanical Diet 3 -BNP and CBC -No permissive HTN given patient is >48 hrs since symptoms first note. -Hydralzine PRN -Sliding Scale -PT-->rec may go home if caregiver is supporitve & Available, if not SNF placement recommended. Given caregiver does not live with [place], SNF would be better option. -Neurology consulted, Appreciate recommendation, Dr. Youssef #Bradycardia #Asymptomatic #Right Bundle Branch Block Patient is on multiple psychiatry medication that some side effects include QT prolongation such as Ziprasidone 80 mg PO BID. In additoin, Trihexyphenidyl may cause bradycardia given parasypathetic effects-->Hold. DDX: atrial fibrilation less likely given p waves noted on EKG vs Atrial Flutter which would help explain exensive stroke. Plan -Hold Trihexyphenidyl -Pending Cardio recommendations -Pending Neuro recommendations. #Leukocytosis,resovled. Likely reactive given recent stroke vs infection less likely given UTI shows no bacteria and patient is not complaining of any urinary symptoms vs URI less likely given negative cough or sob. Plan: -Monitor #Starvation Ketosis Ketones notes on UA with borderline anion gap of 12, this is likely starvation ketosis as patimiguel has not been able to keep food down secondary to nausea vs less likely secondary to mediation vs less likely secondary to DKA given no history of diabetes and A1c within normal limits Plan: No acute intervention #Schizophrenia and Bipolar disorder #hx of Depression #hx of Anxiety Past medical history of schizophrenia and bipolar who is complicant with medication. Plan: Continue Divalprex, Trihexyphenidly, and ziprasidone home medication. Health Maintenance: Disp: Pt is currently admitted to floors for further management of stroke, awaiting MRI and echo FEN: NPO-->spending speech evaluation given slurred speech DVT: on subQ heparin Code: Full - The patient's plan was discussed with attending Dr. Taylor Chadwick MD PGY1 Internal Medicine Attending Provider Attestation/Addendum I have discussed and was present for the essential components of the history, physical examination, diagnosis, and treatment plan with the resident. I agree with the patient's care as documented by the resident and amended herein by me. Rito Vazquez DO. Patient seen and evaluated this AM. No acute events overnight, we did notice that the patient's pulse was low in the 30s and 40s, bradycardic this morning. It was also noted at time of bedside visit that the patient was having frequent PVCs hence we got an EKG which appeared to demonstrate atrial flutter. As such, we decided to consult cardiology in which we appreciate recommendations. MRI of the patient's brain Demonstrated acute infarct in the left cerebellar hemisphere, left vermis, left cerebellopontine call, left occipital lobe and left temporal lobe. The patient was continued on aspirin 325 mg daily, Plavix discontinued however are pending neurology recommendations. Will replete electrolytes as needed, follow-up with echocardiogram results, patient on aspirin and statin at this time. Although this document has been carefully reviewed, there may still be some phonetic and other typographical errors. These errors are purely grammatical due to imperfections in the software program and should not be construed in any way to compromise the substance of the patient's medical care during this visit.
--- NOTE | 2025-01-17 13:29 | ESCONSULT_ITS ---
HPI Data of Consult Requesting Physician: Hermes Vazquez DO Admitting Provider: Hermes Vazquez DO Attending Provider: Hermes Vazquez DO Primary Care Provider: Physician No Primary/Family Consult Narrative Reason for consult: Bradycardia History of present illness: Patient is a 69-year-old female with past medical history of schizophrenia, bipolar disorder, depression, and anxiety who presented to the ED on 01/16/2025 with 2 days of dizziness, nausea, and headache. Patient had associated fall, nausea, and vomiting due to these symptoms. Dizziness is described as room spinning sensation and is worse upon movement. She states she had never had these symptoms prior. She denies any previous cardiac medical history or history of stroke. Patient denies episodes of passing out and losing consciousness. ED Course: -Initial vitals were BP 167/78, HR 61, RR 18, Temp 98.5, O2 91% on room air -Labs significant for mild leukocytosis WBC 14.5, mild troponin elevation 0.113 which downtrended -EKG showed sinus bradycardia at a rate of 51 with right bundle branch block -CXR shows cardiomegaly and bilateral vascular congestion -CT head non-contrast showed large acute nonhemorrhagic infarct of the left cerebellar hemisphere -CTA head/neck showed no significant neck arterial stenoses or cerebral large vessel arterial occlusions or thrombus -In the ED, patient was given 1L NS IV fluids, lorazepam 1 mg IV x1, aspirin 325 mg PO x1 -Patient was admitted for acute ischemic stroke workup on 01/16/2025 and Cardiology was consulted on 01/17/2025 due to multi-embolic stroke pattern, bradycardia, and possible atrial flutter 01/17/2025: Patient seen at bedside and was asleep, awakens to voice and reports that she is still dizzy. She continues to complain of headache localized all over the head. She states she has been unable to walk since the onset of symptoms. Prior to that she was ambulatory on her own without issues. Reviewed labs which are stable today, troponin has downtrended to 0.054, A1c 5.3, total cholesterol 141, triglycerides 116, LDL 80, HDL 38. BP elevated and has ranged from 123/62 to 161/83. MRI/MRA brain without contrast showed embolic pattern of stroke including acute infarcts in the left cerebellar hemisphere, left vermis, left cerebellar peduncle, left occipital lobe, and left temporal lobe. EKG shows questionable afib/aflutter however p waves can be discerned, the patient denies any sort of spinal stimulator or or implanted device which may be causing artifact, will repeat. Review of Systems Review of systems otherwise negative except what is mentioned above. cc:: cc: Hermes Vazquez, DO Past Medical History Past Medical History Comments PMH COMMENT: Past Medical History: Bipolar disorder, schizophrenia, depression, anxiety Family History: Patient is unsure of family history of cardiovascular disease. Brother in 2022, patient unsure of cause. Surgical History: No prior surgeries Social History: Denies history of smoking, denies current alcohol use, denies recreational drug use. Patient lives alone in a hotel. She lives off of social security. Current Medications: Divalproex 1000 mg HS, trihexyphenidyl 5 mg BID, ziprasidone 80 mg BID (Source: [employer]) Allergies: No known drug allergies Exam Vital Signs Temp Pulse Resp BP Pulse Ox O2 Del Method 97.2 F 58 L 17 161/83 H 95 Room Air 01/17/25 11:56 01/17/25 11:56 01/17/25 11:56 01/17/25 11:56 01/17/25 11:56 01/17/25 11:56 Narrative Exam Physical Exam General: Awake and in no acute distress. Patient has simple answers and requires repeated prompting of questions. Falling asleep quickly during encounter. HEENT: Normocephalic, atraumatic, mucous membranes moist. Heart: Bradycardic rate and regular rhythm, normal S1 and S2, no murmurs. No bruits. Strong peripheral pulses. Lungs: Clear to auscultation with no wheezing or crackles. Abdomen: Soft, nondistended, nontender, positive bowel sounds. ?No guarding or rebound tenderness. Neurologic: Alert and oriented x3, no gross neurological deficit, and patient able to move all 4 extremities. Extremities: No edema. Skin: No rash or ecchymoses. Results Labs 01/17/25 04:49 01/17/25 04:49 Labs: Short CBC 01/17/25 Range/Units 04:49 WBC 10.9 (3.6-11.0) Thou/mm3 Hgb 12.0 (12.0-16.0) g/dL Hct 36.3 (36.0-46.0) % Plt Count 211 (140-440) Thou/mm3 BMP 01/17/25 04:49 Sodium 143 Potassium 3.5 D Chloride 108 H Carbon Dioxide 25.5 BUN 13 Creatinine 0.7 Glucose 82 Calcium 8.2 L Cardiac Enzymes 01/16/25 01/16/25 01/16/25 Range/Units 14:55 18:30 23:08 Troponin I 0.113 H* 0.083 H* 0.069 H* (0.0-0.045) ng/mL 01/17/25 Range/Units 04:49 Troponin I 0.054 H* (0.0-0.045) ng/mL Liver Function 01/17/25 Range/Units 04:49 Total Bilirubin 0.5 (0.3-1.2) mg/dL AST 20 (0-34) U/L ALT 17 (10-49) U/L Alkaline Phosphatase 66 (46-116) U/L Albumin 3.6 D (3.4-4.8) gm/dL Urine 01/16/25 Range/Units 15:40 Urine Color Yellow (Lt Yel-Yel) Urine Clarity Clear (Clear/Hazy) Urine pH 6.5 (5.0-7.0) Ur Specific [place] 1.020 (1.001-1.035) Urine Protein 1+ A (Neg - Trace) Urine Glucose (UA) Negative (Negative) Quality Measures Quality Measures none Advance care planning discussed with:: patient Medications Home Medications and Allergies Home Medications ?Medication ?Instructions ?Recorded ?Confirmed ?Type divalproex 500 mg tablet,delayed 2 tab PO HS 05/18/22 01/17/25 History release trihexyphenidyl 5 mg tablet 1 tab PO BIDWM 05/18/22 History ziprasidone HCl 80 mg capsule 1 cap PO BID 05/18/22 History Allergies Allergy/AdvReac Type Severity Reaction Status Date / Time No Known Allergies Allergy Verified 01/16/25 11:55 Visit Medications Acetaminophen (Acetaminophen 325 Mg Tablet) 650 mg PO Q6H PRN PRN Reason: Pain 1-3 or Fever >100.3 Stop: 02/15/25 15:58 Aspirin (Aspirin 325 Mg Tablet) 325 mg PO QDAY [facility] Stop: 02/16/25 08:59 Last Admin: 01/17/25 08:46 Dose: 325 mg Atorvastatin Calcium (Atorvastatin Calcium 20 Mg Tablet) 40 mg PO HS [facility] Stop: 02/15/25 20:59 Last Admin: 01/16/25 21:30 Dose: 40 mg Dextrose (Dextrose 50%-Water Inj 50 Ml Syringe) 25 ml IV Q15MIN PRN PRN Reason: BG 50-70 responsive npo pt Stop: 02/15/25 17:05 Dextrose (Dextrose 50%-Water Inj 50 Ml Syringe) 50 ml IV Q15MIN PRN PRN Reason: BG <50 OR BG <70 & pt unresponsive Stop: 02/15/25 17:05 Divalproex Sodium (Divalproex Sod Dr 500 Mg Tablet.Dr) 500 mg PO BID [facility] Stop: 02/15/25 20:59 Last Admin: 01/17/25 08:47 Dose: 500 mg Glucagon (Glucagon Inj 1 Mg Vial) 1 mg IM Q15MIN PRN PRN Reason: BG <70, and no IV access Heparin Sodium (Porcine) (Heparin Sod Inj 5000 Unit/Ml Vial) 5,000 unit SC Q12HR [facility] Stop: 01/30/25 20:59 Last Admin: 01/17/25 08:46 Dose: 5,000 unit Hydralazine HCl (Hydralazine Inj 20 Mg/Ml Vial) 10 mg IV Q4HR PRN PRN Reason: Hypertension Stop: 02/15/25 19:44 Sodium Chloride (Ns) 1,000 mls @ 75 mls/hr IV .[id number] [facility] Stop: 02/15/25 15:59 Last Admin: 01/17/25 08:47 Dose: 75 mls/hr Insulin Human Lispro (Insulin Lispro (Admelog) 1 Unit/0.01 Ml Unit) 0 unit SC Q6HR [facility]; Protocol Stop: 02/15/25 17:59 Last Admin: 01/17/25 05:19 Dose: Not Given Non-Formulary Medication (Trihexyphenidyl Hydrochloride ) 5 mg PO BID [facility] Stop: 02/15/25 20:59 Ondansetron HCl (Ondansetron Inj 2 Mg/Ml Inj 2 Ml) 4 mg IV Q6H PRN; Protocol PRN Reason: NAUSEA OR VOMITING Stop: 02/15/25 15:58 Pantoprazole Sodium (Pantoprazole Inj 40 Mg Vial) 40 mg IVP QDAY [facility] Stop: 02/15/25 16:14 Last Admin: 01/17/25 08:46 Dose: 40 mg Ziprasidone (Ziprasidone 20 Mg Capsule) 80 mg PO BID [facility] Stop: 02/15/25 20:59 Last Admin: 01/17/25 08:46 Dose: 80 mg Discontinued Medications Aspirin (Aspirin 325 Mg Tablet) 325 mg PO X1 [facility] Stop: 01/16/25 14:05 Last Admin: 01/16/25 14:44 Dose: 325 mg Aspirin (Aspirin Ec 81 Mg Tabec) 81 mg PO QDAY [facility] Stop: 02/16/25 08:59 Clopidogrel Bisulfate (Clopidogrel Bisulfate 75 Mg Tablet) 75 mg PO QDAY [facility] Stop: 02/15/25 17:14 Last Admin: 01/16/25 19:32 Dose: 75 mg Sodium Chloride (Ns) 500 mls @ 999 mls/hr IV .Q31M ONE Stop: 01/16/25 12:21 Last Infusion: 01/16/25 13:07 Dose: Infused Lorazepam (Lorazepam 2 Mg/Ml Vial) 1 mg IVP X1 [facility] Stop: 01/16/25 12:09 Last Admin: 01/16/25 12:16 Dose: 1 mg Potassium Chloride (Potassium Chloride 20 Meq Tabcr) 20 meq PO X1 [facility] Stop: 01/17/25 07:56 Last Admin: 01/17/25 08:47 Dose: 20 meq Assessment & Plan Plan 69-year-old female with past medical history of schizophrenia, bipolar disorder, depression, and anxiety who presented to the ED on 01/16/2025 with 2 days of dizziness, nausea, and headache and Cardiology was consulted due to possibly multiembolic pattern CVA and bradycardia. #Acute multiembolic pattern CVA Patient presented with dizziness, nausea, vomiting, and impaired gait. CT head non-contrast showed large acute nonhemorrhagic infarct of the left cerebellar hemisphere MRI/MRA brain without contrast showed embolic pattern of stroke including acute infarcts in the left cerebellar hemisphere, left vermis, left cerebellar peduncle, left occipital lobe, and left temporal lobe. -Complete transthoracic echo pending -Patient will likely need transesophageal echo follow up to rule out cardiac emboli, will follow outpatient #Sinus bradycardia EKG showed rate of 51 and right bundle branch block, read is showing afib however p waves do appear to be visible, it is a poor quality EKG with likely artifact. Patient is denying any sort of implant or spinal stimulator that is present. At present the patient's symptoms are mostly likely from the acute stroke rather than the bradycardia. -Repeat EKG ordered -Avoid beta-blockers #Hypertension Patient has been hypertensive with systolic BP ranging up to 160s. -May start antihypertensive oral agents since patient is >48 hours post onset of symptoms #NSTEMI type 2 #Elevated troponin - downtrended Initial troponin was 0.113, downtrended. Likely demand ischemia secondary to stroke event. -No need to continue trending Rest of conditions to continue current management per primary team: #History of bipolar disorder #History of schizophrenia #History of depression #History of anxiety Patient was discussed with the Cardiology attending, Dr. Pagan. Thank you for allowing us to participate in the care of this patient. Kristin Garcia, PGY-2 Attending Provider Attestation/Addendum I have personally seen and examined the patient separately on the above date of service and discussed the plan of care with the resident. I reviewed the resident Dr. Kristin Garcia consultation progress note and agree with the resident findings and plan in the note above and have also edited the documentation to reflect my findings and plan. A 69-year-old female with a medical history of morbid obesity, bipolar disorder, schizophrenia, depression, anxiety, history of fall, COVID-19 infection in 2021 with acute encephalopathy and hyperammonemia during that admission presented to the emergency department for further evaluation of dizziness, nausea as well as headache. Patient did complain of room spinning/positional dizziness which is worse with movements and started having significant headache for the last 2 days including some nausea but no evidence of any vomitings. Patient denied any current chest pain chest pressure shortness of breath orthopnea PND or palpitations or any other previous major cardiac disease. On arrival patient blood pressure was elevated to 167/78 mmHg, respiratory rate of 18, heart rate of 60 on beats per minute and saturation of 91% on room air. Labs showed elevated WBC at 14.5 with left shift, hemoglobin normal at 13.7, BUN of 13 and creatinine of 0.8. Sodium was 145 initial troponin was elevated at 0.113 LFTs were normal. UA was negative. EKG did show normal sinus rhythm without any acute ST-T changes. Patient did have CT head which showed large acute nonhemorrhagic infarct of the left cerebral hemisphere and patient eventually also had MRI which did confirm embolic pattern of stroke including acute infarcts of the left cerebellar hemisphere, left vermis, left cerebellar peritoneal, left occipital lobe as well as left temporal lobe. Cardiology was consulted for abnormal EKG with A-fib rate controlled bradycardia along with stroke to rule out embolic etiology or cardioembolic etiology 1. Acute stroke-appears embolic with involvement of the occipital, temporal lobes as well as cerebellar 2. Sinus bradycardia, rule out atrial fibrillation slow RVR 3. Mildly elevated troponins mostly secondary to supply/demand mismatch-NSTEMI type II 4. Bipolar disorder, schizophrenia, depression, anxiety 5. History of fall, COVID-19 infection in 2021 6. Obesity Patient did have acute stroke as noted above and appears embolic with involvement of occipital temporal lobes as well as cerebellum. Neurology consulted and diagnosed confirmed with CT head as well as the brain MRI as noted above. Patient will need further evaluation to rule out embolic causes for the stroke. Will follow-up neurology recommendations regarding MICHELLE and would be an appropriate indication for proving bleeding of the embolic source. Aspirin, high intensity statins for now and if blood pressure is elevated then we can start with ARB. Echo ordered and is pending Patient does appear to have some sinus bradycardia with a heart rate of 40s and 50s. There was no evidence of any high degree AV block. There was also question about atrial fibrillation with slow ventricular rate but reviewed the EKG and appears to be more of an artifact as P waves were noted regularly. Recommend for repeat EKG for now. Keep potassium greater than 4 and magnesium less than 2.0 at all times. No anticoagulation for now. Mildly elevated troponins and peaked at 0.113 and now trending down. EKG without any acute ST changes suggestive of ischemia. Troponin elevation was thought to be secondary to NSTEMI type II in the setting of supply/demand mismatch. Aspirin has been already started along with high intensity statin.. Echo has been ordered and will follow-up the results to evaluate LV function RV function and also diastolic function to rule out regional wall motion abnormalities. Management of rest of the medical conditions as per primary team and other consultants. Thank you for the consult and allowing me to participate in the care of the patient. Cardiology will continue to follow. Kalin Pagan M.D. Interventional Cardiology
--- NOTE | 2025-01-17 16:46 | EKG_ITS ---
[facility] Test Date: 2025-01-17 Pat Name: ERNESTO HERNADEZ [facility] Gender[facility] Female [employer]phate Tester: GAVINO : 1955 Requested By: Kristin Garcia Order Number: [id number] Reading MD: Kristin Garcia Measurements Intervals [place] Rate: 46 P: 56 [place]: 161 QRS: 38 QRSD: 145 T: 0 QT: 519 QTc: 457 Interpretive Statements SINUS BRADYCARDIA RIGHT BUNDLE BRANCH BLOCK Compared to ECG 01/17/2025 10:51:35 Atrial fibrillation no longer present /store/S0/[id number].pdf
--- NOTE | 2025-01-17 16:46 | PD.RESEVENT ---
Documentation for date of: 01/17/25 Event Note Event Note: Telephone conversation with Oli, caregiver that lives in same building as patient. Updated caregiver about extensive stroke patient sustained. Patient urinary retention and need to place logan given 1600 cc of urine. Caregiver does not live with patient and only stops to help her and there with patient's needs. Explained that patient would benefit form a short period at a SNF given extensive stroke. Oli is understanding and agreeable, and sees the benefit of a short stay at a SNF during initial recovery. Does not have any information on patient's sister that does not liver locally and would be next of kin to her. Cathryn Chadwick MD PGY1 Internal Medicine
[2025-01-17] MEDS: ACETAMINOPHEN 325 MG TABLET 650 MG PO (19:56)
[2025-01-17] MEDS: ATORVASTATIN CALCIUM 20 MG TABLET 40 MG PO (20:49)
[2025-01-18] VITALS (10 sets, daily range): BP systolic 119–144; BP diastolic 67–89; PULSE 46–75; RESP 12–97; TEMP 36.1–37.2; O2SAT 95–99; BMI 32.3
[2025-01-18] MEDS: ACETAMINOPHEN 325 MG TABLET 650 MG PO ×2 (04:40→10:20)
[2025-01-18 05:36] LABS: Basophils # (Auto) 0.1 Thou/mm3 (0.0-0.2); Basophils % (Auto) 1 % (0-2.5); Eosinophils # (Auto) 0.1 Thou/mm3 (0.0-0.5); Eosinophils % (Auto) 1 % (0-10); Hematocrit 36.3 % (36.0-46.0); Hemoglobin 12.2 g/dL (12.0-16.0); Immature Granulocytes % (Auto) 0 % (0-0); Immature Granulocytes Auto 0.03 Thou/mm3 (0.00-0.00); Lymphocytes # (Auto) 2.2 Thou/mm3 (1.0-4.8); Lymphocytes % (Auto) 24 % (10-50); Mean Corpuscular HGB Conc 33.6 g/dl (31.0-37.0); Mean Corpuscular Volume 89 fL (80-100); Monocytes # (Auto) 0.7 Thou/mm3 (0.0-0.8); Monocytes % (Auto) 8 % (0-12); Neutrophils # (Auto) 6.1 Thou/mm3 (1.8-7.7); Neutrophils % (Auto) 67 % (37-80); Nucleated Red Blood Cell % 0 /100 WBC (0); Platelet Count 190 Thou/mm3 (140-440); Red Blood Count 4.07 Miln/mm3 (4.00-5.20); White Blood Count 9.2 Thou/mm3 (3.6-11.0)
[2025-01-18 05:52] LABS: Alanine Aminotransferase 19 U/L (10-49); Albumin, Serum 3.5 gm/dL (3.4-4.8); Albumin/Globulin Ratio 1.3 (1.2-2.2); Alkaline Phosphatase 67 U/L (46-116); Anion Gap 8 (7-16); Aspartate Amino Transferase 25 U/L (0-34); BUN/Creatinine Ratio 13 Ratio (12-20); Bilirubin,Total 0.6 mg/dL (0.3-1.2); Blood Urea Nitrogen 9 mg/dL (9-23); Calcium 7.9 mg/dL (8.3-10.6); Calcium (Corrected) 8.3 mg/dL (8.5-10.1); Carbon Dioxide 25.9 mMol/L (20.0-31.0); Chloride 108 mMol/L (98-107); Creatinine (Component) 0.7 mg/dL (0.6-1.3); Estimated Creatinine Clearance 86.1 mL/min (>60); Globulin 2.8 gm/dL (2.3-3.5); Glucose 80 mg/dL (74-106); Magnesium 2.1 mg/dL (1.6-2.6); Osmolality,Calculated 280 (275-295); Potassium 3.4 mMol/L (3.4-5.1); Sodium 142 mMol/L (136-145); Total Protein 6.3 gm/dL (5.7-8.2); eGFR > 60 See Note
[2025-01-18] MEDS: POTASSIUM CHLORIDE 20 mEq TABCR 40 MEQ PO ×2 (08:39→10:21)
[2025-01-18] MEDS: LOSARTAN POTASSIUM 25 MG TABLET PO (08:39)
[2025-01-18] MEDS: DIVALPROEX SOD DR 500 MG TABLET.DR PO ×2 (08:40→20:52)
[2025-01-18] MEDS: Aspirin 325 MG TABLET PO (08:40)
[2025-01-18] MEDS: HEPARIN SOD INJ 5000 UNIT/ML VIAL SC ×2 (08:40→20:52)
[2025-01-18] MEDS: ZIPRASIDONE 20 MG CAPSULE 80 MG PO ×2 (08:40→20:52)
[2025-01-18] MEDS: PANTOPRAZOLE INJ 40 MG VIAL IVP (08:40)
--- NOTE | 2025-01-18 15:51 | ESPR_ITS ---
Documentation for date of: 01/18/25 Subjective Subjective Interval history: No acute overnight events noted. Seen and examined at bedside and currently does not have any complaints. Denies any shortness of breath, chest discomfort, or light headedness. Spoke about risks and benefits of MICHELLE and patient in agreement to undergo procedure. Plan to undergo tomorrow and NPO after midnight (except for PO meds). Exam Vital Signs Temp Pulse Resp BP Pulse Ox O2 Del Method O2 Flow Rate 97.8 F 69 18 138/67 H 96 Nasal Cannula 2 01/18/25 12:00 01/18/25 14:03 01/18/25 14:03 01/18/25 12:00 01/18/25 12:00 01/18/25 12:00 01/18/25 12:00 Objective Labs 01/18/25 04:53 01/18/25 04:53 Labs: Laboratory Results - last 24 hr 01/18/25 04:53 WBC 9.2 RBC 4.07 Hgb 12.2 Hct 36.3 MCV 89 MCH 30.0 MCHC 33.6 RDW Std Deviation 44.0 Plt Count 190 Neut % (Auto) 67 Lymph % (Auto) 24 [place] % (Auto) 8 Eos % (Auto) 1 Baso % (Auto) 1 Neut # (Auto) 6.1 Lymph # (Auto) 2.2 [place] # (Auto) 0.7 Eos # (Auto) 0.1 Baso # (Auto) 0.1 Immature Gran # (Auto) 0.03 H Absolute Nucleated RBC 0.00 Immature Gran % 0 Nucleated RBC % 0 Sodium 142 Potassium 3.4 Chloride 108 H Carbon Dioxide 25.9 Anion Gap 8 BUN 9 Creatinine 0.7 Estim Creat Clear Calc 86.1 eGFR > 60 BUN/Creatinine Ratio 13 Glucose 80 Calculated Osmolality 280 Calcium 7.9 L Corrected Calcium 8.3 L Phosphorus 3.0 Magnesium 2.1 Total Bilirubin 0.6 AST 25 ALT 19 Alkaline Phosphatase 67 Total Protein 6.3 Albumin 3.5 Globulin 2.8 Albumin/Globulin Ratio 1.3 Quality Measures Quality Measures none Advance care planning discussed with:: patient Assessment & Plan Assessment Current Active Medications: Generic Name Dose Route Start Last Admin Trade Name Freq PRN Reason Stop Dose Admin Acetaminophen 650 mg 01/16/25 15:59 01/18/25 04:40 Acetaminophen 325 Mg Tablet PO 02/15/25 15:58 650 mg Q6H PRN Administration Pain 1-3 or Fever >100.3 Aspirin 325 mg 01/17/25 09:00 01/18/25 08:40 Aspirin 325 Mg Tablet PO 02/16/25 08:59 325 mg QDAY [facility] Administration Atorvastatin Calcium 40 mg 01/16/25 21:00 01/17/25 20:49 Atorvastatin Calcium 20 Mg Tablet PO 02/15/25 20:59 40 mg HS [facility]ELA Administration Dextrose 25 ml 01/16/25 17:06 Dextrose 50%-Water Inj 50 Ml Syringe IV 02/15/25 17:05 Q15MIN PRN BG 50-70 responsive npo pt Dextrose 50 ml 01/16/25 17:06 Dextrose 50%-Water Inj 50 Ml Syringe IV 02/15/25 17:05 Q15MIN PRN BG <50 OR BG <70 & pt unresponsive Divalproex Sodium 500 mg 01/16/25 21:00 01/18/25 08:[address] 500 Mg Tablet.Dr PO 02/15/25 20:59 500 mg BID M[facility]A Administration Glucagon 1 mg 01/16/25 17:06 Glucagon Inj 1 Mg Vial IM Q15MIN PRN BG <70, and no IV access Heparin Sodium (Porcine) 5,000 unit 01/16/25 21:00 01/18/25 08:40 Heparin Sod Inj 5000 Unit/Ml Vial SC 01/30/25 20:59 5,000 unit Q12HR [facility] Administration Hydralazine HCl 10 mg 01/16/25 19:45 Hydralazine Inj 20 Mg/Ml Vial IV 02/15/25 19:44 Q4HR PRN Hypertension Losartan Potassium 25 mg 01/18/25 09:00 01/18/25 08:39 Losartan Potassium 25 Mg Tablet PO 02/17/25 08:59 25 mg QDAY [facility]A Administration Non-Formulary Medication 5 mg 01/16/25 21:00 01/17/25 13:36 Trihexyphenidyl Hydrochloride PO 02/15/25 20:59 Not Given BID [facility] Ondansetron HCl 4 mg 01/16/25 15:59 Ondansetron Inj 2 Mg/Ml Inj 2 Ml IV 02/15/25 15:58 Q6H PRN NAUSEA OR VOMITING Protocol Pantoprazole Sodium 40 mg 01/16/25 16:15 01/18/25 08:40 Pantoprazole Inj 40 Mg Vial IVP 02/15/25 16:14 40 mg QDAY [facility] Administration Ziprasidone 80 mg 01/16/25 21:00 01/18/25 08:40 Ziprasidone 20 Mg Capsule PO 02/15/25 20:59 80 mg BID [facility] Administration Plan Carmen Duran is a 69-y/o female with a PMHx morbid obesity, bipolar disorder, schizophrenia, depression, anxiety, COVID-19 infection in 2021 with acute encephalopathy and hyperammonemia during that admission presented to ED for dizziness, nausea as well as headache. Endorsed room spinning/positional dizziness worse with movements with associated headache x2 days and nausea but no emesis. Denies chest discomfort, SOB, orthopnea, PND, or palpitations or any other previous major cardiac disease. CT head showed large, acute nonhemorrhagic infarct of left cerebral hemisphere and MRI confirmed embolic stroke pattern in left cerebellar hemisphere, left vermis, left cerebellar peritoneal, left occipital lobe as well as left temporal lobe. Cardiology consulted for EKG showing A-fib (rate controlled), bradycardia, and rule-out for cardioembolic etiology of stroke. #Acute multiembolic pattern CVA Patient presented with dizziness, nausea, vomiting, and impaired gait. CT head non-contrast showed large acute nonhemorrhagic infarct of the left cerebellar hemisphere MRI/MRA brain without contrast showed embolic pattern of stroke including acute infarcts in the left cerebellar hemisphere, left vermis, left cerebellar peduncle, left occipital lobe, and left temporal lobe. ? Transesophageal echo planned for tomorrow ? N.p.o. after midnight, p.o. meds okay ? Continue aspirin, high intensity statin #Sinus bradycardia EKG showed rate of 51 and right bundle branch block, read is showing afib however p waves do appear to be visible, it is a poor quality EKG with likely artifact. Patient is denying any sort of implant or spinal stimulator that is present. At present the patient's symptoms are mostly likely from the acute stroke rather than the bradycardia. Repeat EKG showed sinus bradycardia with right bundle branch block rather than a-fib with slow ventricular response. ? Avoid chronotropic agents #Hypertension Patient has been hypertensive with systolic BP ranging up to 160s. ? If BP is elevated, can start ARB #NSTEMI type 2 #Elevated troponin - downtrended Initial troponin was 0.113, downtrended. Likely demand ischemia secondary to stroke event. ? No need to continue trending Rest of conditions to continue current management per primary team: #History of bipolar disorder #History of schizophrenia #History of depression #History of anxiety ----- Plan discussed with attending physician Dr. Latasha Martin MD PGY-1 Internal Medicine
--- NOTE | 2025-01-18 17:37 | PD.RESPRO ---
Documentation for date of: 01/18/25 Subjective Subjective Interval history: Patient evaluated bedside, complaining of headache this morning, received Tylenol, posterior circulation stroke, on antiplatelets, A-fib currently rate controlled. Cardiology following the patient. Transthoracic echocardiogram pending., Exam Vital Signs Temp Pulse Resp BP Pulse Ox O2 Del Method O2 Flow Rate 97.8 F 75 16 119/89 H 99 Nasal Cannula 2 01/18/25 16:00 01/18/25 16:00 01/18/25 16:00 01/18/25 16:01/18/25 16:01/18/25 16:01/18/25 16:00 Narrative Exam Physical Exam General: Awake and in no acute distress. Complaining of headache. HEENT: Normocephalic, atraumatic, mucous membranes moist. Heart: Bradycardic rate and regular rhythm, normal S1 and S2, no murmurs. No bruits. Strong peripheral pulses. Lungs: Clear to auscultation with no wheezing or crackles. Abdomen: Soft, nondistended, nontender, positive bowel sounds. ?No guarding or rebound tenderness. Neurologic: Alert and oriented x3, no gross neurological deficit, and patient able to move all 4 extremities. Extremities: No edema. Skin: No rash or ecchymoses. Objective Labs 01/18/25 04:53 01/18/25 04:53 Labs: Laboratory Results - last 24 hr 01/18/25 04:53 WBC 9.2 RBC 4.07 Hgb 12.2 Hct 36.3 MCV 89 MCH 30.0 MCHC 33.6 RDW Std Deviation 44.0 Plt Count 190 Neut % (Auto) 67 Lymph % (Auto) 24 [place] % (Auto) 8 Eos % (Auto) 1 Baso % (Auto) 1 Neut # (Auto) 6.1 Lymph # (Auto) 2.2 [place] # (Auto) 0.7 Eos # (Auto) 0.1 Baso # (Auto) 0.1 Immature Gran # (Auto) 0.03 H Absolute Nucleated RBC 0.00 Immature Gran % 0 Nucleated RBC % 0 Sodium 142 Potassium 3.4 Chloride 108 H Carbon Dioxide 25.9 Anion Gap 8 BUN 9 Creatinine 0.7 Estim Creat Clear Calc 86.1 eGFR > 60 BUN/Creatinine Ratio 13 Glucose 80 Calculated Osmolality 280 Calcium 7.9 L Corrected Calcium 8.3 L Phosphorus 3.0 Magnesium 2.1 Total Bilirubin 0.6 AST 25 ALT 19 Alkaline Phosphatase 67 Total Protein 6.3 Albumin 3.5 Globulin 2.8 Albumin/Globulin Ratio 1.3 Quality Measures Quality Measures none Advance care planning discussed with:: patient Assessment & Plan Assessment Current Active Medications: Generic Name Dose Route Start Last Admin Trade Name Freq PRN Reason Stop Dose Admin Acetaminophen 650 mg 01/16/25 15:59 01/18/25 04:40 Acetaminophen 325 Mg Tablet PO 02/15/25 15:58 650 mg Q6H PRN Administration Pain 1-3 or Fever >100.3 Aspirin 325 mg 01/17/25 09:00 01/18/25 08:40 Aspirin 325 Mg Tablet PO 02/16/25 08:59 325 mg QDAY MELA Administration Atorvastatin Calcium 40 mg 01/16/25 21:00 01/17/25 20:49 Atorvastatin Calcium 20 Mg Tablet PO 02/15/25 20:59 40 mg HS MELA Administration Dextrose 25 ml 01/16/25 17:06 Dextrose 50%-Water Inj 50 Ml Syringe IV 02/15/25 17:05 Q15MIN PRN BG 50-70 responsive npo pt Dextrose 50 ml 01/16/25 17:06 Dextrose 50%-Water Inj 50 Ml Syringe IV 02/15/25 17:05 Q15MIN PRN BG <50 OR BG <70 & pt unresponsive Divalproex Sodium 500 mg 01/16/25 21:00 01/18/25 08:[address] 500 Mg Tablet.Dr PO 02/15/25 20:59 500 mg BID MELA Administration Glucagon 1 mg 01/16/25 17:06 Glucagon Inj 1 Mg Vial IM Q15MIN PRN BG <70, and no IV access Heparin Sodium (Porcine) 5,000 unit 01/16/25 21:00 01/18/25 08:40 Heparin Sod Inj 5000 Unit/Ml Vial SC 01/30/25 20:59 5,000 unit Q12HR MELA Administration Hydralazine HCl 10 mg 01/16/25 19:45 Hydralazine Inj 20 Mg/Ml Vial IV 02/15/25 19:44 Q4HR PRN Hypertension Losartan Potassium 25 mg 01/18/25 09:00 01/18/25 08:39 Losartan Potassium 25 Mg Tablet PO 02/17/25 08:59 25 mg QDAY MELA Administration Non-Formulary Medication 5 mg 01/16/25 21:00 01/17/25 13:36 Trihexyphenidyl Hydrochloride PO 02/15/25 20:59 Not Given BID MELA Ondansetron HCl 4 mg 01/16/25 15:59 Ondansetron Inj 2 Mg/Ml Inj 2 Ml IV 02/15/25 15:58 Q6H PRN NAUSEA OR VOMITING Protocol Pantoprazole Sodium 40 mg 01/16/25 16:15 01/18/25 08:40 Pantoprazole Inj 40 Mg Vial IVP 02/15/25 16:14 40 mg QDAY MELA Administration Ziprasidone 80 mg 01/16/25 21:00 01/18/25 08:40 Ziprasidone 20 Mg Capsule PO 02/15/25 20:59 80 mg BID MELA Administration Plan Patient is a 69-year-old female with a past medical history of schizophrenia and bipolar disorder, history of depression and anxiety who was admitted for ischemic stroke. # Acute embolic CVA Etiology: Ischemic stroke noted on MRI, likely secondary to embolic or plaque Diagnostics: MRI: Acute infarcts left cerebellar hemisphere, left vermis, left cerebellar peduncle, left occipital lobe, left temporal lobe Head CT: Large acute nonhemorrhagic infarct left side of cerebellar hemisphere Plan: -Aspirin 325 mg once a day -Neuro Checks Q4 hours -Aspiration Precautions, Head of bed 30 degrees -Bedside swallow screen and evaluation -Euglycemia and avoid Hyperthermia -Acetaminophen PRN -Mechanical Diet 3 -BNP and CBC -No permissive HTN given patient is >48 hrs since symptoms first note. -Hydralzine PRN -Sliding Scale -PT-->rec may go home if caregiver is supporitve & Available, if not SNF placement recommended. Given caregiver does not live with patinet, SNF would be better option. -Neurology consulted, Appreciate recommendation, Dr. Youssef #Bradycardia #Asymptomatic #Right Bundle Branch Block Patient is on multiple psychiatry medication that some side effects include QT prolongation such as Ziprasidone 80 mg PO BID. In additoin, Trihexyphenidyl may cause bradycardia given parasypathetic effects-->Hold. DDX: atrial fibrilation less likely given p waves noted on EKG vs Atrial Flutter which would help explain exensive stroke. Plan -Hold Trihexyphenidyl -Pending Cardio recommendations -Pending Neuro recommendations. #Leukocytosis,resovled. Likely reactive given recent stroke vs infection less likely given UTI shows no bacteria and patient is not complaining of any urinary symptoms vs URI less likely given negative cough or sob. Plan: -Monitor #Starvation Ketosis Ketones notes on UA with borderline anion gap of 12, this is likely starvation ketosis as patinet has not been able to keep food down secondary to nausea vs less likely secondary to mediation vs less likely secondary to DKA given no history of diabetes and A1c within normal limits Plan: No acute intervention #Schizophrenia and Bipolar disorder #hx of Depression #hx of Anxiety Past medical history of schizophrenia and bipolar who is complicant with medication. Plan: Continue Divalprex, Trihexyphenidly, and ziprasidone home medication. Health Maintenance: Disp: Pt is currently admitted to floors for further management of stroke, awaiting MRI and echo FEN: NPO-->spending speech evaluation given slurred speech DVT: on subQ heparin Code: Full - The patient's plan was discussed with attending Dr. Taylor Donaldson PGY 2
[2025-01-18] MEDS: ATORVASTATIN CALCIUM 20 MG TABLET 40 MG PO (20:52)
--- NOTE | 2025-01-18 23:41 | VVPN_ITS ---
Telemedicine visit statement This visit was conducted with the use of interactive audio and video telecommunications system that permits real time communication between the patient and the provider. Patient's verbal consent for virtual visit was obtained on 01/18/25 at 2341. Documentation for date of: 01/18/25 Subjective Subjective Interval history: Patient is in telemetry. No new symptoms reported. No headache or dizziness, nausea or vomiting. Tolerating oral diet well Virtual exam Vital Signs Temp Pulse Resp BP Pulse Ox O2 Del Method O2 Flow Rate 99.0 F 59 L 20 138/67 H 95 Room Air 2 01/18/25 20:00 01/18/25 20:00 01/18/25 20:00 01/18/25 20:00 01/18/25 20:00 01/18/25 20:00 01/18/25 16:00 Objective Labs 01/19/25 04:52 01/19/25 04:52 Labs: Laboratory Results - last 24 hr 01/18/25 04:53 WBC 9.2 RBC 4.07 Hgb 12.2 Hct 36.3 MCV 89 MCH 30.0 MCHC 33.6 RDW Std Deviation 44.0 Plt Count 190 Neut % (Auto) 67 Lymph % (Auto) 24 [place] % (Auto) 8 Eos % (Auto) 1 Baso % (Auto) 1 Neut # (Auto) 6.1 Lymph # (Auto) 2.2 [place] # (Auto) 0.7 Eos # (Auto) 0.1 Baso # (Auto) 0.1 Immature Gran # (Auto) 0.03 H Absolute Nucleated RBC 0.00 Immature Gran % 0 Nucleated RBC % 0 Sodium 142 Potassium 3.4 Chloride 108 H Carbon Dioxide 25.9 Anion Gap 8 BUN 9 Creatinine 0.7 Estim Creat Clear Calc 86.1 eGFR > 60 BUN/Creatinine Ratio 13 Glucose 80 Calculated Osmolality 280 Calcium 7.9 L Corrected Calcium 8.3 L Phosphorus 3.0 Magnesium 2.1 Total Bilirubin 0.6 AST 25 ALT 19 Alkaline Phosphatase 67 Total Protein 6.3 Albumin 3.5 Globulin 2.8 Albumin/Globulin Ratio 1.3 Assessment & Plan Problem List (1) Acute CVA (cerebrovascular accident): Status: Acute Assessment and plan: MRI brain showed Acute infarcts left cerebellar hemisphere, left vermis, left cerebellar peduncle, left occipital lobe, left temporal lobe continue with aspirin and statin. Follow-up with transesophageal echocardiogram on Sunday. Recommend to get a repeat CT head without contrast before deciding on adding Plavix to prevent hemorrhagic transformation Noted cardiology consult (2) Bipolar disorder: Status: Chronic Assessment and plan: Continue home meds (3) Schizophrenia: Status: Chronic Assessment and plan: Continue home meds
[2025-01-19] VITALS (10 sets, daily range): BP systolic 134–153; BP diastolic 60–93; PULSE 60–92; RESP 12–98; TEMP 36.2–36.7; O2SAT 18–97; BMI 32.2; BMI 12.0; BMI 32.1
[2025-01-19 05:52] LABS: Basophils # (Auto) 0.1 Thou/mm3 (0.0-0.2); Basophils % (Auto) 1 % (0-2.5); Eosinophils # (Auto) 0.2 Thou/mm3 (0.0-0.5); Eosinophils % (Auto) 2 % (0-10); Hematocrit 38.8 % (36.0-46.0); Hemoglobin 12.8 g/dL (12.0-16.0); Immature Granulocytes % (Auto) 1 % (0-0); Immature Granulocytes Auto 0.05 Thou/mm3 (0.00-0.00); Lymphocytes % (Auto) 22 % (10-50); Mean Corpuscular Hemoglobin 30.3 pg (25.0-35.0); Mean Corpuscular Volume 92 fL (80-100); Monocytes # (Auto) 0.6 Thou/mm3 (0.0-0.8); Monocytes % (Auto) 6 % (0-12); Neutrophils # (Auto) 6.3 Thou/mm3 (1.8-7.7); Neutrophils % (Auto) 69 % (37-80); Nucleated Red Blood Cell % 0 /100 WBC (0); Platelet Count 218 Thou/mm3 (140-440); RDW Standard Deviation 45.6 fL (36.4-46.3); Red Blood Count 4.22 Miln/mm3 (4.00-5.20); White Blood Count 9.1 Thou/mm3 (3.6-11.0)
[2025-01-19 06:11] LABS: Alanine Aminotransferase 19 U/L (10-49); Albumin, Serum 3.6 gm/dL (3.4-4.8); Albumin/Globulin Ratio 1.2 (1.2-2.2); Alkaline Phosphatase 72 U/L (46-116); Anion Gap 7 (7-16); Aspartate Amino Transferase 21 U/L (0-34); BUN/Creatinine Ratio 10 Ratio (12-20); Bilirubin,Total 0.5 mg/dL (0.3-1.2); Blood Urea Nitrogen 7 mg/dL (9-23); Calcium 8.3 mg/dL (8.3-10.6); Calcium (Corrected) 8.6 mg/dL (8.5-10.1); Carbon Dioxide 24.9 mMol/L (20.0-31.0); Chloride 109 mMol/L (98-107); Creatinine (Component) 0.7 mg/dL (0.6-1.3); Estimated Creatinine Clearance 86.1 mL/min (>60); Globulin 2.9 gm/dL (2.3-3.5); Glucose 93 mg/dL (74-106); Magnesium 2.1 mg/dL (1.6-2.6); Osmolality,Calculated 279 (275-295); Phosphorous 2.8 mg/dL (2.4-5.1); Potassium 3.8 mMol/L (3.4-5.1); Sodium 141 mMol/L (136-145); Total Protein 6.5 gm/dL (5.7-8.2); eGFR > 60 See Note
--- NOTE | 2025-01-19 08:20 | XR_ITS ---
Examination: CT brain head without contrast. 2-D sagittal coronal reconstructions Date and time of exam:January 19, 2025 1620 hrs. Comparison January 16, 2025 Indications: Onset dizziness headaches beginning January 16, 2025, large acute infarct left cerebellar hemisphere January 16, 2025 hours therapy CTDI: vol (mGy):50.7 DLP: (mGycm):1087 Technique: Multiple CT axial sections of the brain have been obtained, 5 mm slice thickness. Contrast has not been administered. 2-D sagittal, coronal reconstructions have been obtained Low dose protocols were performed. One or more of the following dose reduction techniques were used; automated exposure control, adjustment of the mA and/or KV according to patient size, use of iterative reconstruction technique. Findings: Large acute infarct in the left cerebellar hemisphere again noted, smaller acute infarct in the left occipital lobe No hemorrhagic examination Ventricles normal size No interval hemorrhage or mass effect Cranial vault intact Impression: Large acute infarct left cerebellar hemisphere and smaller acute infarct left occipital lobe No interval acute hemorrhage
[2025-01-19] MEDS: POTASSIUM CHLORIDE 10% 20 MEQ/15 ML UDC 40 MEQ PO (08:47)
[2025-01-19] MEDS: PANTOPRAZOLE INJ 40 MG VIAL IVP (08:47)
[2025-01-19] MEDS: ZIPRASIDONE 20 MG CAPSULE 80 MG PO ×2 (08:47→20:48)
[2025-01-19] MEDS: LOSARTAN POTASSIUM 25 MG TABLET PO (08:48)
[2025-01-19] MEDS: DIVALPROEX SOD DR 500 MG TABLET.DR PO ×2 (08:48→20:48)
[2025-01-19 09:16] LABS: INR 1.2 (0.9-1.3); Partial Thromboplastin Time 29.6 Seconds (22.0-36.0); Prothrombin Time 12.6 Seconds (9.0-12.2)
--- NOTE | 2025-01-19 09:39 | PC.SS ---
Rounding: Pending MICHELLE, possible late DC home.
--- NOTE | 2025-01-19 10:45 | PC.SS ---
Walkers The diagnosis creates mobility limitation that significantly impairs ability to participate in the patients activities of daily living either in their entirety, or in a reasonable time frame. Also the patient is able to safely use the walker and the patient?s mobility is sufficiently resolved with the use of the walker and cane has been ruled out.
--- NOTE | 2025-01-19 11:28 | PD.RESPRO ---
Documentation for date of: 01/19/25 Subjective Subjective Interval history: No acute overnight events noted. Seen and examined at bedside and patient's only complaint is that of a headache. Otherwise, denies lightheadedness, shortness of breath, and chest discomfort. Telemonitor reviewed and patient in normal sinus rhythm with HR in 70s. Vital signs stable, labs reviewed and unremarkable. Apparently, probe for MICHELLE is still unavailable and will not be able to perform MICHELLE today. If patient is to remain in the hospital for further work-up/management, will attempt to obtain MICHELLE while she is still in-house. Otherwise, if primary team has no furthre plans for work-up then MICHELLE can be performed as outpatient. Exam Vital Signs Temp Pulse Resp BP Pulse Ox O2 Del Method O2 Flow Rate 97.9 F 73 18 145/63 H 96 Room Air 2 01/19/25 08:00 01/19/25 08:48 01/19/25 08:00 01/19/25 08:48 01/19/25 08:00 01/19/25 08:00 01/18/25 16:00 Narrative Exam General: AOx3, no acute distress, requires questions to be repeated but answers appropriately HEENT: NC/AT, mucous membranes moist, bilateral sclera anicteric Cardiovascular: regular rate and rhythm, S1/S2 present, no murmurs appreciated Pulmonary: clear to auscultation bilaterally, no rales/rhonchi/wheezes Abdominal: soft, non-tender, non-distended, no rebound/guarding, normal bowel sounds present Musculoskeletal: normal ROM, no peripheral edema Skin: warm and dry, intact, no rashes Neuro: no focal deficits Objective Labs 01/19/25 04:52 01/19/25 04:52 Labs: Laboratory Results - last 24 hr 01/19/25 04:52 WBC 9.1 RBC 4.22 Hgb 12.8 Hct 38.8 MCV 92 MCH 30.3 MCHC 33.0 RDW Std Deviation 45.6 Plt Count 218 Neut % (Auto) 69 Lymph % (Auto) 22 [place] % (Auto) 6 Eos % (Auto) 2 Baso % (Auto) 1 Neut # (Auto) 6.3 Lymph # (Auto) 2.0 [place] # (Auto) 0.6 Eos # (Auto) 0.2 Baso # (Auto) 0.1 Immature Gran # (Auto) 0.05 H Absolute Nucleated RBC 0.00 Immature Gran % 1 H Nucleated RBC % 0 PT 12.6 H INR 1.2 APTT 29.6 Sodium 141 Potassium 3.8 Chloride 109 H Carbon Dioxide 24.9 Anion Gap 7 BUN 7 L Creatinine 0.7 Estim Creat Clear Calc 86.1 eGFR > 60 BUN/Creatinine Ratio 10 L Glucose 93 Calculated Osmolality 279 Calcium 8.3 Corrected Calcium 8.6 Phosphorus 2.8 Magnesium 2.1 Total Bilirubin 0.5 AST 21 ALT 19 Alkaline Phosphatase 72 Total Protein 6.5 Albumin 3.6 Globulin 2.9 Albumin/Globulin Ratio 1.2 Quality Measures Quality Measures none Advance care planning discussed with:: patient Assessment & Plan Assessment Current Active Medications: Generic Name Dose Route Start Last Admin Trade Name Freq PRN Reason Stop Dose Admin Acetaminophen 650 mg 01/16/25 15:59 01/18/25 04:40 Acetaminophen 325 Mg Tablet PO 02/15/25 15:58 650 mg Q6H PRN Administration Pain 1-3 or Fever >100.3 Aspirin 325 mg 01/17/25 09:00 01/19/25 11:27 Aspirin 325 Mg Tablet PO 02/16/25 08:59 Not Given QDAY MELA Atorvastatin Calcium 40 mg 01/16/25 21:00 01/18/25 20:52 Atorvastatin Calcium 20 Mg Tablet PO 02/15/25 20:59 40 mg HS MELA Administration Dextrose 25 ml 01/16/25 17:06 Dextrose 50%-Water Inj 50 Ml Syringe IV 02/15/25 17:05 Q15MIN PRN BG 50-70 responsive npo pt Dextrose 50 ml 01/16/25 17:06 Dextrose 50%-Water Inj 50 Ml Syringe IV 02/15/25 17:05 Q15MIN PRN BG <50 OR BG <70 & pt unresponsive Divalproex Sodium 500 mg 01/16/25 21:00 01/19/25 08:[address] 500 Mg Tablet.Dr PO 02/15/25 20:59 500 mg BID MELA Administration Glucagon 1 mg 01/16/25 17:06 Glucagon Inj 1 Mg Vial IM Q15MIN PRN BG <70, and no IV access Heparin Sodium (Porcine) 5,000 unit 01/16/25 21:00 01/19/25 11:27 Heparin Sod Inj 5000 Unit/Ml Vial SC 01/30/25 20:59 Not Given Q12HR MELA Hydralazine HCl 10 mg 01/16/25 19:45 Hydralazine Inj 20 Mg/Ml Vial IV 02/15/25 19:44 Q4HR PRN Hypertension Losartan Potassium 25 mg 01/18/25 09:00 01/19/25 08:48 Losartan Potassium 25 Mg Tablet PO 02/17/25 08:59 25 mg QDAY MELA Administration Non-Formulary Medication 5 mg 01/16/25 21:00 01/17/25 13:36 Trihexyphenidyl Hydrochloride PO 02/15/25 20:59 Not Given BID MELA Ondansetron HCl 4 mg 01/16/25 15:59 Ondansetron Inj 2 Mg/Ml Inj 2 Ml IV 02/15/25 15:58 Q6H PRN NAUSEA OR VOMITING Protocol Pantoprazole Sodium 40 mg 01/16/25 16:15 01/19/25 08:47 Pantoprazole Inj 40 Mg Vial IVP 02/15/25 16:14 40 mg QDAY MELA Administration Sennosides 1 tab 01/19/25 07:51 Senna/Docusate Sod 1 Tab Tablet PO 02/18/25 07:50 QDAY PRN CONSTIPATION Protocol Ziprasidone 80 mg 01/16/25 21:00 01/19/25 08:47 Ziprasidone 20 Mg Capsule PO 02/15/25 20:59 80 mg BID MELA Administration Plan Carmen Duran is a 69-y/o female with a PMHx morbid obesity, bipolar disorder, schizophrenia, depression, anxiety, COVID-19 infection in 2021 with acute encephalopathy and hyperammonemia during that admission presented to ED for dizziness, nausea as well as headache. Endorsed room spinning/positional dizziness worse with movements with associated headache x2 days and nausea but no emesis. Denies chest discomfort, SOB, orthopnea, PND, or palpitations or any other previous major cardiac disease. CT head showed large, acute nonhemorrhagic infarct of left cerebral hemisphere and MRI confirmed embolic stroke pattern in left cerebellar hemisphere, left vermis, left cerebellar peritoneal, left occipital lobe as well as left temporal lobe. Cardiology consulted for EKG showing A-fib (rate controlled), bradycardia, and rule-out for cardioembolic etiology of stroke. #Acute multiembolic pattern CVA Patient presented with dizziness, nausea, vomiting, and impaired gait. CT head non-contrast showed large acute nonhemorrhagic infarct of the left cerebellar hemisphere MRI/MRA brain without contrast showed embolic pattern of stroke including acute infarcts in the left cerebellar hemisphere, left vermis, left cerebellar peduncle, left occipital lobe, and left temporal lobe. ? Given that equipment for MICHELLE is unavailable, will try and attempt to perform MICHELLE if patient is to remain in-house Otherwise, if primary team has no furthre plans for work-up then MICHELLE can be performed as outpatien ? Continue aspirin, high intensity statin #Sinus bradycardia EKG showed rate of 51 and right bundle branch block, read is showing afib however p waves do appear to be visible, it is a poor quality EKG with likely artifact. Patient is denying any sort of implant or spinal stimulator that is present. At present the patient's symptoms are mostly likely from the acute stroke rather than the bradycardia. Repeat EKG showed sinus bradycardia with right bundle branch block rather than a-fib with slow ventricular response. ? Avoid chronotropic agents #Hypertension Patient has been hypertensive with systolic BP ranging up to 160s. ? If BP is elevated, can start ARB #NSTEMI type 2 #Elevated troponin - downtrended Initial troponin was 0.113, downtrended. Likely demand ischemia secondary to stroke event. ? No need to continue trending Rest of conditions to continue current management per primary team: #History of bipolar disorder #History of schizophrenia #History of depression #History of anxiety ----- Plan discussed with attending physician Dr. Latasha Martin MD PGY-1 Internal Medicine Attending Provider Attestation/Addendum I have personally seen and examined the patient separately on the above date of service and discussed the plan of care with the resident. I reviewed the resident Dr. Junior Martin consultation progress note and agree with the resident findings and plan in the note above and have also edited the documentation to reflect my findings and plan. Kalin Pagan M.D. Interventional Cardiology
--- NOTE | 2025-01-19 12:31 | PC.SS ---
Referral for [facility]WW submitted via [facility] per PT reccs. Jay booked. Pending delivery of DME.
[2025-01-19] MEDS: ACETAMINOPHEN 325 MG TABLET 650 MG PO (12:45)
--- NOTE | 2025-01-19 13:50 | ESPR_ITS ---
<Statement entered by Bárbara Fraga MD - 01/19/25 14:57> Patient was seen and examined at the bedside. No acute overnight events. Labs and vitals were reviewed, CBC/CMP is unremarkable, patient will pressure is well-controlled with losartan [address] head to exclude any hemorrhagic conversion before starting Plavix. Continue aspirin 325 and atorvastatin 40. Incident Response Analyst on board, pending MICHELLE. Will follow-up with results 1. Pending CT head to exclude hemorrhagic conversion before starting Plavix 2. Pending MICHELLE, cardiology is on board 3. PT evaluated the patient, patient might need SNF placement if caregiver is not fully involved in the care. I personally saw and examined the patient and discussed the assessment and plan with the entire medicine team, including my attending Dr. Vazquez, Bárbara Fraga M.D. PGY-2 Disclaimer: Despite multiple revisions, due to the dictation software being used, the document bellow may not be free of grammatical errors including phonetic/typographic errors. However, this does not deter from our commitment to providing health care in the patient's best interest in mind. Documentation for date of: 01/19/25 Subjective Subjective Interval history: No overnight events. Patient remianed afebrile. Siddiqui catheter having adequate urine outpute w/ 1900 within the last 24 hours. Patient continues to complain of headache. No blurry vision. No chest pain or SOB. Pending repeat CT head-->possible resume plavix. NPO after midnight, possible MICHELLE w/ Dr. Grier. Exam Vital Signs Temp Pulse Resp BP Pulse Ox O2 Del Method O2 Flow Rate 97.2 F 60 18 135/76 H 93 L Room Air 2 01/19/25 12:00 01/19/25 13:44 01/19/25 13:44 01/19/25 12:00 01/19/25 12:00 01/19/25 12:00 01/18/25 16:00 Narrative Exam General Appearance: Alert & Oriented X2, well-nourished female who is lying in bed in no acute distress HEENT: Skull symmetrical and atraumatic. Conjunctivae pin and moist. Pupils equal, round, reactive to light and accommodation (PERRL). External ear without lesion or discharge. Straight, nares patient, mucosa pink, no discharge. No thyroid nodule appreciated. No cervical lymphadenopathy. Cardio: Marty Rate and Rhythm with S1 and S2 heart sounds. No murmurs or extra heart sounds auscultated. No bruits on carotid auscultation. No peripheral edema or cyanosis. Lungs: Symmetric with good expansion. Chest and back non-tender. Breath sounds vesicular without crackles, wheezing or rhonchi Abdomen: Non-tender, Non-distended, Normal Reactive Bowel Sounds Neuro: Alert, cooperative, oriented to person, place, and No time. Speech dysarthic. Improved Right facial droop. CN grossly intact. Upper motor strength 5/5 and Lower motor strength 4/5. Sensation intact. Objective Labs 01/19/25 04:52 01/19/25 04:52 Labs: Laboratory Results - last 24 hr 01/19/25 04:52 WBC 9.1 RBC 4.22 Hgb 12.8 Hct 38.8 MCV 92 MCH 30.3 MCHC 33.0 RDW Std Deviation 45.6 Plt Count 218 Neut % (Auto) 69 Lymph % (Auto) 22 [place] % (Auto) 6 Eos % (Auto) 2 Baso % (Auto) 1 Neut # (Auto) 6.3 Lymph # (Auto) 2.0 [place] # (Auto) 0.6 Eos # (Auto) 0.2 Baso # (Auto) 0.1 Immature Gran # (Auto) 0.05 H Absolute Nucleated RBC 0.00 Immature Gran % 1 H Nucleated RBC % 0 PT 12.6 H INR 1.2 APTT 29.6 Sodium 141 Potassium 3.8 Chloride 109 H Carbon Dioxide 24.9 Anion Gap 7 BUN 7 L Creatinine 0.7 Estim Creat Clear Calc 86.1 eGFR > 60 BUN/Creatinine Ratio 10 L Glucose 93 Calculated Osmolality 279 Calcium 8.3 Corrected Calcium 8.6 Phosphorus 2.8 Magnesium 2.1 Total Bilirubin 0.5 AST 21 ALT 19 Alkaline Phosphatase 72 Total Protein 6.5 Albumin 3.6 Globulin 2.9 Albumin/Globulin Ratio 1.2 Quality Measures Quality Measures none Advance care planning discussed with:: patient Assessment & Plan Assessment Current Active Medications: Generic Name Dose Route Start Last Admin Trade Name Freq PRN Reason Stop Dose Admin Acetaminophen 650 mg 01/16/25 15:59 01/19/25 12:45 Acetaminophen 325 Mg Tablet PO 02/15/25 15:58 650 mg Q6H PRN Administration Pain 1-3 or Fever >100.3 Aspirin 325 mg 01/17/25 09:00 01/19/25 11:27 Aspirin 325 Mg Tablet PO 02/16/25 08:59 Not Given QDAY MELA Atorvastatin Calcium 40 mg 01/16/25 21:00 01/18/25 20:52 Atorvastatin Calcium 20 Mg Tablet PO 02/15/25 20:59 40 mg HS MELA Administration Dextrose 25 ml 01/16/25 17:06 Dextrose 50%-Water Inj 50 Ml Syringe IV 02/15/25 17:05 Q15MIN PRN BG 50-70 responsive npo pt Dextrose 50 ml 01/16/25 17:06 Dextrose 50%-Water Inj 50 Ml Syringe IV 02/15/25 17:05 Q15MIN PRN BG <50 OR BG <70 & pt unresponsive Divalproex Sodium 500 mg 01/16/25 21:00 01/19/25 08:[address] 500 Mg Tablet.Dr PO 02/15/25 20:59 500 mg BID MELA Administration Glucagon 1 mg 01/16/25 17:06 Glucagon Inj 1 Mg Vial IM Q15MIN PRN BG <70, and no IV access Heparin Sodium (Porcine) 5,000 unit 01/16/25 21:00 01/19/25 11:27 Heparin Sod Inj 5000 Unit/Ml Vial SC 01/30/25 20:59 Not Given Q12HR MELA Hydralazine HCl 10 mg 01/16/25 19:45 Hydralazine Inj 20 Mg/Ml Vial IV 02/15/25 19:44 Q4HR PRN Hypertension Losartan Potassium 25 mg 01/18/25 09:00 01/19/25 08:48 Losartan Potassium 25 Mg Tablet PO 02/17/25 08:59 25 mg QDAY MELA Administration Non-Formulary Medication 5 mg 01/16/25 21:00 01/17/25 13:36 Trihexyphenidyl Hydrochloride PO 02/15/25 20:59 Not Given BID MELA Ondansetron HCl 4 mg 01/16/25 15:59 Ondansetron Inj 2 Mg/Ml Inj 2 Ml IV 02/15/25 15:58 Q6H PRN NAUSEA OR VOMITING Protocol Pantoprazole Sodium 40 mg 01/16/25 16:15 01/19/25 08:47 Pantoprazole Inj 40 Mg Vial IVP 02/15/25 16:14 40 mg QDAY MELA Administration Sennosides 1 tab 01/19/25 07:51 Senna/Docusate Sod 1 Tab Tablet PO 02/18/25 07:50 QDAY PRN CONSTIPATION Protocol Ziprasidone 80 mg 01/16/25 21:00 01/19/25 08:47 Ziprasidone 20 Mg Capsule PO 02/15/25 20:59 80 mg BID MELA Administration Plan Patient is a 69-year-old female with a past medical history of schizophrenia and bipolar disorder, history of depression and anxiety who was admitted for ischemic stroke. # Acute embolic CVA Etiology: Ischemic stroke noted on MRI, likely secondary to embolic or plaque Diagnostics: MRI: Acute infarcts left cerebellar hemisphere, left vermis, left cerebellar peduncle, left occipital lobe, left temporal lobe Head CT: Large acute nonhemorrhagic infarct left side of cerebellar hemisphere Plan: -Repeat CT Head-->possible restart clopidogrel if negative repeat CT head -Aspirin 325 mg once a day -Neuro Checks Q4 hours -Aspiration Precautions, Head of bed 30 degrees -Bedside swallow screen and evaluation -Euglycemia and avoid Hyperthermia -Acetaminophen PRN -Mechanical Diet 3 -BNP and CBC -No permissive HTN given patient is >48 hrs since symptoms first note. -Hydralzine PRN -Sliding Scale -PT-->rec may go home if caregiver is supporitve & Available, if not SNF placement recommended. Given caregiver does not live with patinet, SNF would be better option. -Neurology consulted, Appreciate recommendation, Dr. Youssef #Bradycardia #Asymptomatic #Right Bundle Branch Block Patient is on multiple psychiatry medication that some side effects include QT prolongation such as Ziprasidone 80 mg PO BID. In additoin, Trihexyphenidyl may cause bradycardia given parasypathetic effects-->Hold. DDX: atrial fibrilation less likely given p waves noted on EKG vs Atrial Flutter which would help explain exensive stroke. Plan -Continue Trihexyphenidyl -Pending Cardio recommendations -NPO after midnight-->MICHELLE Sunday #Schizophrenia and Bipolar disorder #hx of Depression #hx of Anxiety Past medical history of schizophrenia and bipolar who is complicant with medication. Plan: Continue Divalprex, Trihexyphenidly, and ziprasidone home medication. #Leukocytosis,resovled. #Starvation Ketosis, resolved Health Maintenance: Disp: Pt is currently admitted to floors for further management of stroke, awaiting repeat CT head given extensive stroke FEN: NPO After Midnight for MICHELLE w/ Dr. Bryant DVT: on subQ heparin Lines: Siddiqui Catheter and Tele box Code: Full - The patient's plan was discussed with attending Dr. Vazquez and senior residents Dr. Philly Chadwick MD PGY1 Internal Medicine Attending Provider Attestation/Addendum I have discussed and was present for the essential components of the history, physical examination, diagnosis, and treatment plan with the resident. I agree with the patient's care as documented by the resident and amended herein by me. Rito Vazquez, DO. Patient seen and evaluated this AM. In short, 69-year-old female admitted for stroke workup found to have infarcts in her left cerebellar hemisphere, left vermis, left cerebellar pendicle, left occipital lobe and left temporal lobe. Cardiology and neurology consulted. Patient will undergo MICHELLE, supposed to happen today per cardiology however the probe is an operative at this time hence likely to happen tomorrow. We have also ordered a repeat CT head per neurology recommendations to evaluate for any potential hemorrhagic transformation. Will continue the patient on aspirin 325 mg daily, high-dose statin and losartan for blood pressure control. Patient still has complaints of headache although improved today. Will continue to monitor closely, appreciate all specialist recommendations. Although this document has been carefully reviewed, there may still be some phonetic and other typographical errors. These errors are purely grammatical due to imperfections in the software program and should not be construed in any way to compromise the substance of the patient's medical care during this visit.
--- NOTE | 2025-01-19 14:44 | PC.CC ---
I was informed inpatient CT is down and pt needs to go across at [facility] for CT. I coordinate with swimming pool service technician, pt primary team and bedside nurse. Pt needs FIORDALIZA hou only, no Dr. Hou needed per swimming pool service technician. Which will be FIORDALIZA Mcdermott. I sent paperwork to [facility]. Called [facility], spoke to Brianna and setup the transport. She stated pick pulling machine operator time is 1730 just to put pt info in the system. We have other pts going to [facility] for CT. The time will be coordinated based on that .
[2025-01-19] MEDS: ATORVASTATIN CALCIUM 20 MG TABLET 40 MG PO (20:48)
[2025-01-19] MEDS: HEPARIN SOD INJ 5000 UNIT/ML VIAL SC (20:48)
[2025-01-20] VITALS (7 sets, daily range): BP systolic 117–156; BP diastolic 53–88; PULSE 55–87; RESP 14–24; TEMP 36.1–36.4; O2SAT 94–98; BMI 32.4; BMI 11.0
[2025-01-20 05:45] LABS: Basophils % (Auto) 0 % (0-2.5); Eosinophils # (Auto) 0.3 Thou/mm3 (0.0-0.5); Eosinophils % (Auto) 3 % (0-10); Hematocrit 40.7 % (36.0-46.0); Hemoglobin 13.6 g/dL (12.0-16.0); Immature Granulocytes % (Auto) 1 % (0-0); Immature Granulocytes Auto 0.06 Thou/mm3 (0.00-0.00); Lymphocytes % (Auto) 22 % (10-50); Mean Corpuscular HGB Conc 33.4 g/dl (31.0-37.0); Mean Corpuscular Volume 90 fL (80-100); Monocytes # (Auto) 0.7 Thou/mm3 (0.0-0.8); Monocytes % (Auto) 7 % (0-12); Neutrophils # (Auto) 6.3 Thou/mm3 (1.8-7.7); Neutrophils % (Auto) 68 % (37-80); Nucleated Red Blood Cell % 0 /100 WBC (0); Platelet Count 189 Thou/mm3 (140-440); RDW Standard Deviation 44.6 fL (36.4-46.3); Red Blood Count 4.54 Miln/mm3 (4.00-5.20); White Blood Count 9.3 Thou/mm3 (3.6-11.0)
[2025-01-20 06:11] LABS: Alanine Aminotransferase 16 U/L (10-49); Albumin, Serum 3.7 gm/dL (3.4-4.8); Albumin/Globulin Ratio 1.3 (1.2-2.2); Alkaline Phosphatase 74 U/L (46-116); Anion Gap 8 (7-16); Aspartate Amino Transferase 19 U/L (0-34); BUN/Creatinine Ratio 10 Ratio (12-20); Bilirubin,Total 0.5 mg/dL (0.3-1.2); Blood Urea Nitrogen 7 mg/dL (9-23); Calcium 8.6 mg/dL (8.3-10.6); Calcium (Corrected) 8.8 mg/dL (8.5-10.1); Carbon Dioxide 27.3 mMol/L (20.0-31.0); Chloride 106 mMol/L (98-107); Creatinine (Component) 0.7 mg/dL (0.6-1.3); Globulin 2.9 gm/dL (2.3-3.5); Glucose 114 mg/dL (74-106); Magnesium 2.1 mg/dL (1.6-2.6); Osmolality,Calculated 280 (275-295); Phosphorous 3.3 mg/dL (2.4-5.1); Potassium 3.8 mMol/L (3.4-5.1); Sodium 141 mMol/L (136-145); Total Protein 6.6 gm/dL (5.7-8.2); eGFR > 60 See Note
[2025-01-20 06:58] LABS: INR 1.1 (0.9-1.3); Partial Thromboplastin Time 29.1 Seconds (22.0-36.0); Prothrombin Time 12.2 Seconds (9.0-12.2)
[2025-01-20] MEDS: POTASSIUM CHLORIDE 10% 20 MEQ/15 ML UDC 40 MEQ PO (08:41)
[2025-01-20] MEDS: PANTOPRAZOLE INJ 40 MG VIAL IVP (08:42)
[2025-01-20] MEDS: DIVALPROEX SOD DR 500 MG TABLET.DR PO ×2 (08:43→20:32)
[2025-01-20] MEDS: LOSARTAN POTASSIUM 25 MG TABLET PO (08:43)
--- NOTE | 2025-01-20 09:46 | PC.SS ---
Addendum entered by Diane Heaton 01/20/25 16:52: [facility] record [id number]. [facility] because [facility] is under [facility]'s care at this time. SS from [facility] needs to contact and make request. Addendum entered by Diane Heaton 01/20/25 15:44: [facility] who prescrib[facility] patient's current psychotropic medication and when patient last saw psychiatrist. SS contacted patient at bedside, she provided verbal consent to allow SS to contact her friend/supervisor feed mill Oli. SS contacted patient's friend Oli, he explained patient was last seen at [facility] 5-6years ago. He was unable to provide name of previous prescribing psychiatrist. Oli further explained patient now obtains psychotropic medications from [facility]. Oli stated patient does not have a PCP, patient is seen by any available provider. SS contacted [facility] and provided information. Camille and [facility] to obtain medical records from [facility]. Addendum entered by Diane Heaton 01/20/25 15:14: SS confirmed discharge plan with patient at bedside. Patient stated she was discharging home but was open to SNF recommendation, would like SNF close to home. [facility] is closest to patient address. SS informed patient SNF referrals were to be submitted. SS spoke to FIORDALIZA [place] and she expressed concern with patient going home on her own. Rounding note, hospitalist team reccomending SNF. SS submitted SNF referrals via [facility]. Options presented to patient and friend Oli at bedside. Both patient and Oli have agreed for [facility]. PASRR level 2 clearance needed. Original Note: Rounding Note: Neuro reccs. pending. SS contacted [facility] to confirm ETA for DME. [facility] stated DME was already delivered at bedside 01/19/25.
[2025-01-20] MEDS: ZIPRASIDONE 20 MG CAPSULE 80 MG PO ×2 (09:51→20:30)
--- NOTE | 2025-01-20 10:31 | CHAP ---
Patient was visited by a Spiritual Care Volunteer on 01/20/2025 between 0900 and 0928 and received comfort, encouragement and/or prayer.
--- NOTE | 2025-01-20 11:01 | PD.RESPRO ---
Documentation for date of: 01/20/25 Subjective Subjective Interval history: No acute overnight events noted. Seen and examined at bedside and patient's only complaint is that of a headache. Otherwise, denies lightheadedness, shortness of breath, and chest discomfort. Telemonitor reviewed and patient in normal sinus rhythm with HR in 70s. Vital signs stable, labs reviewed and unremarkable. MICHELLE probe remains unavailable and will likely have to obtain outpatient. If patient is to remain in the hospital for further work-up/management, will attempt to obtain MICHELLE while she is still in-house. Repeat CT head showed large acute infarct in left cerebellar hemisphere again noted and smaller acute infarct in left occipital lobe. Exam Vital Signs Temp Pulse Resp BP Pulse Ox O2 Del Method O2 Flow Rate 97.1 F 72 14 117/53 L 95 Room Air 2 01/20/25 08:00 01/20/25 08:43 01/20/25 08:00 01/20/25 08:43 01/20/25 08:00 01/20/25 08:00 01/18/25 16:00 Narrative Exam General: AOx3, no acute distress, requires questions to be repeated but answers appropriately HEENT: NC/AT, mucous membranes moist, bilateral sclera anicteric Cardiovascular: regular rate and rhythm, S1/S2 present, no murmurs appreciated Pulmonary: clear to auscultation bilaterally, no rales/rhonchi/wheezes Abdominal: soft, non-tender, non-distended, no rebound/guarding, normal bowel sounds present Musculoskeletal: normal ROM, no peripheral edema Skin: warm and dry, intact, no rashes Neuro: no focal deficits Objective Labs 01/20/25 04:40 01/20/25 04:40 Labs: Laboratory Results - last 24 hr 01/20/25 04:40 WBC 9.3 RBC 4.54 Hgb 13.6 Hct 40.7 MCV 90 MCH 30.0 MCHC 33.4 RDW Std Deviation 44.6 Plt Count 189 Neut % (Auto) 68 Lymph % (Auto) 22 [place] % (Auto) 7 Eos % (Auto) 3 Baso % (Auto) 0 Neut # (Auto) 6.3 Lymph # (Auto) 2.0 [place] # (Auto) 0.7 Eos # (Auto) 0.3 Baso # (Auto) 0.0 Immature Gran # (Auto) 0.06 H Absolute Nucleated RBC 0.00 Immature Gran % 1 H Nucleated RBC % 0 PT 12.2 INR 1.1 APTT 29.1 Sodium 141 Potassium 3.8 Chloride 106 Carbon Dioxide 27.3 Anion Gap 8 BUN 7 L Creatinine 0.7 Estim Creat Clear Calc 86.0 eGFR > 60 BUN/Creatinine Ratio 10 L Glucose 114 H Calculated Osmolality 280 Calcium 8.6 Corrected Calcium 8.8 Phosphorus 3.3 Magnesium 2.1 Total Bilirubin 0.5 AST 19 ALT 16 Alkaline Phosphatase 74 Total Protein 6.6 Albumin 3.7 Globulin 2.9 Albumin/Globulin Ratio 1.3 Quality Measures Quality Measures none Advance care planning discussed with:: patient Assessment & Plan Assessment Current Active Medications: Generic Name Dose Route Start Last Admin Trade Name Freq PRN Reason Stop Dose Admin Acetaminophen 650 mg 01/16/25 15:59 01/19/25 12:45 Acetaminophen 325 Mg Tablet PO 02/15/25 15:58 650 mg Q6H PRN Administration Pain 1-3 or Fever >100.3 Aspirin 325 mg 01/17/25 09:00 01/20/25 08:46 Aspirin 325 Mg Tablet PO 02/16/25 08:59 Not Given QDAY MELA Atorvastatin Calcium 40 mg 01/16/25 21:00 01/19/25 20:48 Atorvastatin Calcium 20 Mg Tablet PO 02/15/25 20:59 40 mg HS MELA Administration Dextrose 25 ml 01/16/25 17:06 Dextrose 50%-Water Inj 50 Ml Syringe IV 02/15/25 17:05 Q15MIN PRN BG 50-70 responsive npo pt Dextrose 50 ml 01/16/25 17:06 Dextrose 50%-Water Inj 50 Ml Syringe IV 02/15/25 17:05 Q15MIN PRN BG <50 OR BG <70 & pt unresponsive Divalproex Sodium 500 mg 01/16/25 21:00 01/20/25 08:[address] 500 Mg Tablet.Dr PO 02/15/25 20:59 500 mg BID MELA Administration Glucagon 1 mg 01/16/25 17:06 Glucagon Inj 1 Mg Vial IM Q15MIN PRN BG <70, and no IV access Heparin Sodium (Porcine) 5,000 unit 01/16/25 21:00 01/20/25 08:46 Heparin Sod Inj 5000 Unit/Ml Vial SC 01/30/25 20:59 Not Given Q12HR MELA Hydralazine HCl 10 mg 01/16/25 19:45 Hydralazine Inj 20 Mg/Ml Vial IV 02/15/25 19:44 Q4HR PRN Hypertension Losartan Potassium 25 mg 01/18/25 09:00 01/20/25 08:43 Losartan Potassium 25 Mg Tablet PO 02/17/25 08:59 25 mg QDAY MELA Administration Non-Formulary Medication 5 mg 01/16/25 21:00 01/17/25 13:36 Trihexyphenidyl Hydrochloride PO 02/15/25 20:59 Not Given BID MELA Ondansetron HCl 4 mg 01/16/25 15:59 Ondansetron Inj 2 Mg/Ml Inj 2 Ml IV 02/15/25 15:58 Q6H PRN NAUSEA OR VOMITING Protocol Pantoprazole Sodium 40 mg 01/21/25 09:00 Pantoprazole 40 Mg Tablet PO 02/20/25 08:59 QDAY MELA Protocol Polyethylene Glycol 17 gm 01/20/25 09:00 Polyethylene Glycol 17 Gm Packet PO 02/19/25 08:59 QDAY MELA Sennosides 1 tab 01/19/25 07:51 Senna/Docusate Sod 1 Tab Tablet PO 02/18/25 07:50 QDAY PRN CONSTIPATION Protocol Ziprasidone 80 mg 01/16/25 21:00 01/20/25 09:51 Ziprasidone 20 Mg Capsule PO 02/15/25 20:59 80 mg BID MELA Administration Plan Carmen Duran is a 69-y/o female with a PMHx morbid obesity, bipolar disorder, schizophrenia, depression, anxiety, COVID-19 infection in 2021 with acute encephalopathy and hyperammonemia during that admission presented to ED for dizziness, nausea as well as headache. Endorsed room spinning/positional dizziness worse with movements with associated headache x2 days and nausea but no emesis. Denies chest discomfort, SOB, orthopnea, PND, or palpitations or any other previous major cardiac disease. CT head showed large, acute nonhemorrhagic infarct of left cerebral hemisphere and MRI confirmed embolic stroke pattern in left cerebellar hemisphere, left vermis, left cerebellar peritoneal, left occipital lobe as well as left temporal lobe. Cardiology consulted for EKG showing A-fib (rate controlled), bradycardia, and rule-out for cardioembolic etiology of stroke. #Acute multiembolic pattern CVA Patient presented with dizziness, nausea, vomiting, and impaired gait. CT head non-contrast showed large acute nonhemorrhagic infarct of the left cerebellar hemisphere MRI/MRA brain without contrast showed embolic pattern of stroke including acute infarcts in the left cerebellar hemisphere, left vermis, left cerebellar peduncle, left occipital lobe, and left temporal lobe. ? MICHELLE probe still unavailable and will likely have to obtain outpatient ? TTE order placed with bubble study and will obtain in-house today ? Continue aspirin, high intensity statin #Sinus bradycardia EKG showed rate of 51 and right bundle branch block, read is showing afib however p waves do appear to be visible, it is a poor quality EKG with likely artifact. Patient is denying any sort of implant or spinal stimulator that is present. At present the patient's symptoms are mostly likely from the acute stroke rather than the bradycardia. Repeat EKG showed sinus bradycardia with right bundle branch block rather than a-fib with slow ventricular response. ? Avoid chronotropic agents #Hypertension Patient has been hypertensive with systolic BP ranging up to 160s. ? If BP is elevated, can start ARB #NSTEMI type 2 #Elevated troponin - downtrended Initial troponin was 0.113, downtrended. Likely demand ischemia secondary to stroke event. ? No need to continue trending Rest of conditions to continue current management per primary team: #History of bipolar disorder #History of schizophrenia #History of depression #History of anxiety ----- Plan discussed with attending physician Dr. Latasha Martin MD PGY-1 Internal Medicine Attending Provider Attestation/Addendum I have personally seen and examined the patient separately on the above date of service and discussed the plan of care with the resident. I reviewed the resident Dr. Junior Martin consultation progress note and agree with the resident findings and plan in the note above and have also edited the documentation to reflect my findings and plan. Kalin Pagan M.D. Interventional Cardiology
--- NOTE | 2025-01-20 11:26 | PD.RESPRO ---
Documentation for date of: 01/20/25 Subjective Subjective Interval history: Patient seen and examined at bedside. No acute overnight events. Patient had repeat head CT done yesterday, no interval hemorrhage. She has a large acute infarct in the left cerebellar hemisphere as well as a small in the left occipital lobe which looks to have been on initial scan as well. Currently on aspirin and atorvastatin, will add Plavix. Otherwise, patient is doing okay today, has no new complaints. MICHELLE still pending. Exam Vital Signs Temp Pulse Resp BP Pulse Ox O2 Del Method O2 Flow Rate 97.1 F 72 14 117/53 L 95 Room Air 2 01/20/25 08:00 01/20/25 08:43 01/20/25 08:00 01/20/25 08:43 01/20/25 08:00 01/20/25 08:00 01/18/25 16:00 Narrative Exam GENERAL: AAOX3 NEURO: Strength and sensation grossly intact in all 4 extremities, mild tremors with [id number] test. No loss of sensation, normal deep tendon reflexes bilaterally. HEENT: Moist mucosa. Eyes open, symmetrical, & clear CARDIO: No chest pain on palpation. Heart RRR, no obvious murmurs PULM: No noted coughing/dyspnea. Lungs CTA B/L, no R/W/R GI: Abdomen soft, nondistended, no pain on palpation. 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 SKIN/MSK/EXT: No wounds/rashes/edema/amputations, no pain on palpation. Pedal pulses present B/L Objective Labs 01/20/25 04:40 01/20/25 04:40 Labs: Laboratory Results - last 24 hr 01/20/25 04:40 WBC 9.3 RBC 4.54 Hgb 13.6 Hct 40.7 MCV 90 MCH 30.0 MCHC 33.4 RDW Std Deviation 44.6 Plt Count 189 Neut % (Auto) 68 Lymph % (Auto) 22 [place] % (Auto) 7 Eos % (Auto) 3 Baso % (Auto) 0 Neut # (Auto) 6.3 Lymph # (Auto) 2.0 [place] # (Auto) 0.7 Eos # (Auto) 0.3 Baso # (Auto) 0.0 Immature Gran # (Auto) 0.06 H Absolute Nucleated RBC 0.00 Immature Gran % 1 H Nucleated RBC % 0 PT 12.2 INR 1.1 APTT 29.1 Sodium 141 Potassium 3.8 Chloride 106 Carbon Dioxide 27.3 Anion Gap 8 BUN 7 L Creatinine 0.7 Estim Creat Clear Calc 86.0 eGFR > 60 BUN/Creatinine Ratio 10 L Glucose 114 H Calculated Osmolality 280 Calcium 8.6 Corrected Calcium 8.8 Phosphorus 3.3 Magnesium 2.1 Total Bilirubin 0.5 AST 19 ALT 16 Alkaline Phosphatase 74 Total Protein 6.6 Albumin 3.7 Globulin 2.9 Albumin/Globulin Ratio 1.3 Quality Measures Quality Measures none Advance care planning discussed with:: patient Assessment & Plan Assessment Current Active Medications: Generic Name Dose Route Start Last Admin Trade Name Freq PRN Reason Stop Dose Admin Acetaminophen 650 mg 01/16/25 15:59 01/19/25 12:45 Acetaminophen 325 Mg Tablet PO 02/15/25 15:58 650 mg Q6H PRN Administration Pain 1-3 or Fever >100.3 Aspirin 325 mg 01/17/25 09:00 01/20/25 08:46 Aspirin 325 Mg Tablet PO 02/16/25 08:59 Not Given QDAY MELA Atorvastatin Calcium 40 mg 01/16/25 21:00 01/19/25 20:48 Atorvastatin Calcium 20 Mg Tablet PO 02/15/25 20:59 40 mg HS MELA Administration Clopidogrel Bisulfate 75 mg 01/21/25 09:00 Clopidogrel Bisulfate 75 Mg Tablet PO 02/20/25 08:59 QDAY MELA Dextrose 25 ml 01/16/25 17:06 Dextrose 50%-Water Inj 50 Ml Syringe IV 02/15/25 17:05 Q15MIN PRN BG 50-70 responsive npo pt Dextrose 50 ml 01/16/25 17:06 Dextrose 50%-Water Inj 50 Ml Syringe IV 02/15/25 17:05 Q15MIN PRN BG <50 OR BG <70 & pt unresponsive Divalproex Sodium 500 mg 01/16/25 21:00 01/20/25 08:[address] 500 Mg Tablet.Dr PO 02/15/25 20:59 500 mg BID MELA Administration Glucagon 1 mg 01/16/25 17:06 Glucagon Inj 1 Mg Vial IM Q15MIN PRN BG <70, and no IV access Heparin Sodium (Porcine) 5,000 unit 01/16/25 21:00 01/20/25 08:46 Heparin Sod Inj 5000 Unit/Ml Vial SC 01/30/25 20:59 Not Given Q12HR MELA Hydralazine HCl 10 mg 01/16/25 19:45 Hydralazine Inj 20 Mg/Ml Vial IV 02/15/25 19:44 Q4HR PRN Hypertension Losartan Potassium 25 mg 01/18/25 09:00 01/20/25 08:43 Losartan Potassium 25 Mg Tablet PO 02/17/25 08:59 25 mg QDAY MELA Administration Non-Formulary Medication 5 mg 01/16/25 21:00 01/17/25 13:36 Trihexyphenidyl Hydrochloride PO 02/15/25 20:59 Not Given BID MELA Ondansetron HCl 4 mg 01/16/25 15:59 Ondansetron Inj 2 Mg/Ml Inj 2 Ml IV 02/15/25 15:58 Q6H PRN NAUSEA OR VOMITING Protocol Pantoprazole Sodium 40 mg 01/21/25 09:00 Pantoprazole 40 Mg Tablet PO 02/20/25 08:59 QDAY MELA Protocol Polyethylene Glycol 17 gm 01/20/25 09:00 Polyethylene Glycol 17 Gm Packet PO 02/19/25 08:59 QDAY MELA Sennosides 1 tab 01/19/25 07:51 Senna/Docusate Sod 1 Tab Tablet PO 02/18/25 07:50 QDAY PRN CONSTIPATION Protocol Ziprasidone 80 mg 01/16/25 21:00 01/20/25 09:51 Ziprasidone 20 Mg Capsule PO 02/15/25 20:59 80 mg BID MELA Administration Plan Summary: The patient is a 69-year-old female with a past medical history of bipolar disorder, schizophrenia, anxiety and depression presents to the ED with dizziness and nausea. Found to have acute CVA, #Acute CVA #Acute infarcts of left cerebral MCA and left occipital lobe Patient presented with dizziness, nausea, presyncopal events. Reported episodes of vertigo as well as a headache, did not lose consciousness. Denies seizure-like activity, denies similar symptoms in the past. History of vitals in the ED, hypertensive. Head CT showed large acute nonhemorrhagic infarct of the left side with cerebral hemisphere as well as occipital lobe. MRI showed the same. Repeat head CT, no hemorrhagic conversion. Currently on aspirin and atorvastatin, will add Plavix. Plan: -Continue aspirin and atorvastatin -Start Plavix 75 mg daily -Continue physical and speech therapy -For MICHELLE to rule out embolic source with possible #History of schizophrenia and bipolar disorder #History of depression #History of anxiety -Management per primary team Case was discussed with attending physician, Dr Domonique Nelson MD PGY-1 Disclaimer: This note was dictated by speech recognition. Minor errors in rail transportation tabeler may be present due to voice recognition software. Attending Provider Attestation/Addendum I personally have seen and examined patient at bedside and agree with resident findings, assessment and plan of care. Patient does not have any significant neurological deficit from the stroke. Repeat CT head did not show any hemorrhagic transformation. Will continue with aspirin 81 mg and Plavix 75 statin. Follow-up with the MICHELLE results.
--- NOTE | 2025-01-20 12:07 | ECHO_ITS ---
Transthoracic Echo Report Ht (in): 66 Wt (lb): 201 Exam Location: Echo Lab Status: Inpatient Fiscal Specialist: FRANKY Rivera^^^^ Indications: Procedure Performed: BP: 124 / 78 HR: 72 Technical Quality: Technically difficult study MEASUREMENTS (Male / Female) Normal Values 2D ECHO LV Diastolic Diameter PLAX 4.3 cm 4.2 - 5.9 / 3.9 - 5.3 cm LV Systolic Diameter PLAX 2.9 cm IVS Diastolic Thickness 0.8 cm 0.6 - 1.0 / 0.6 - 0.9 cm LVPW Diastolic Thickness 0.7 cm 0.6 - 1.0 / 0.6 - 0.9 cm LV Relative Wall Thickness 0.3 LVOT Diameter 1.4 cm Aortic Root Diameter 2.6 cm LA Systolic Diameter LX 2.5 cm 3.0 - 4.0 / 2.7 - 3.8 cm Ascending Aorta Diameter 2.9 cm DOPPLER AV Peak Velocity 121.0 cm/s AV Peak Gradient 5.9 mmHg AV Mean Gradient 4.0 mmHg AV Velocity Time Integral 22.7 cm LVOT Peak Velocity 72.4 cm/s LVOT Peak Gradient 2.1 mmHg LVOT Velocity Time Integral 17.7 cm LVOT Cardiac Index 937.4 cm?/min?m? AV Area Cont Eq vti 1.2 cm? AV Area Cont Eq pk 0.9 cm? MV Area PHT 4.1 cm? Mitral E Point Velocity 48.0 cm/s Mitral A Point Velocity 60.1 cm/s Mitral E to A Ratio 0.8 LV E' Lateral Velocity 8.6 cm/s Mitral E to LV E' Lateral Ratio 5.6 LV E' Septal Velocity 5.8 cm/s Mitral E to LV E' Septal Ratio 8.3 TR Peak Velocity 161.0 cm/s TR Peak Gradient 10.4 mmHg PV Peak Velocity 87.5 cm/s PV Peak Gradient 3.1 mmHg RVOT Peak Velocity 48.8 cm/s FINDINGS Left Ventricle Normal left ventricular size, wall thickness, systolic function with no obvious regional wall motion abnormalities.there is grade I diastolic dysfunction of the left ventricle (impaired relaxation pattern). The left ventricular ejection fraction is normal, estimated at 55-60%. Right Ventricle The right ventricle is normal in size and systolic function. The estimated right ventricular systolic pressure, 17 mmHg. Left Atrium The left atrium is normal by two-dimensional, color flow and Doppler imaging with no structural abnormalities, no thrombus formation present. Right Atrium The right atrium is normal by two-dimensional imaging, color flow and Doppler imaging with no structural abnormalities, no thrombus formation present. Atrial Septum The interatrial septum is normal to color flow Doppler and agitated saline imaging. Aorta The aorta is normal by two-dimensional, color flow and Doppler interrogation. Mitral Valve Mild mitral regurgitation. Mild mitral annular calcification. Aortic Valve Aortic valve sclerosis. Mild thickening of the aortic valve leaflets. Tricuspid Valve There is mild tricuspid valve regurgitation. Pulmonic Valve The pulmonic valve is not well visualized. There is no significant pulmonic valve regurgitation. Vessels The pulmonary artery appears normal. The inferior vena cava pulmonary and hepatic veins appear normal. Pericardium The pericardium is normal by two-dimensional imaging. There is no significant pericardial effusion. CONCLUSIONS Indication: Stroke-rule out cardioembolic source Bubble study negative for any PFO or ASD. TTE suboptimal and consider MICHELLE if high clinical risk of suspicion. Normal RV size and function with an EF of 55 to 60%. Stage I diastolic dysfunction. Normal RV size and function with normal RVSP. Mild aortic valve sclerosis without stenosis. Trace MR and mild TR.Mild TR Kalin Pagan (Electronically Signed) Final Date: 20 January 2025 20:04
--- NOTE | 2025-01-20 12:47 | PC.CM ---
I spoke to charge nurse Lois to see if patient needs to be transferred for MICHELLE. Lois states the doctors are going to have patient follow up as outpatient. Lois stated she would get back to me if anything changes.
[2025-01-20] MEDS: POLYETHYLENE GLYCOL 17 GM PACKET PO (14:22)
--- NOTE | 2025-01-20 15:11 | ESPR_ITS ---
<Statement entered by Janee Seymour MD - 01/25/25 15:12> I reviewed above note and agree with findings and plans. I have also personally examined the patient with medicine team and went over assessment and plan with medical team including internal carver and resident physician. <Statement entered by Bárbara Fraga MD - 01/20/25 15:28> No acute overnight events. Patient was seen and examined. MRI was negative for hemorrhage,, patient will be started on Plavix 75. Pending TTE, anticipate discharge to SNF in the next 24 hours, social work consult on board, working on placement. I personally saw and examined the patient and discussed the assessment and plan with the entire medicine team, including my attending , Bárbara Fraga M.D. PGY-2 Disclaimer: Despite multiple revisions, due to the dictation software being used, the document bellow may not be free of grammatical errors including phonetic/typographic errors. However, this does not deter from our commitment to providing health care in the patient's best interest in mind. Documentation for date of: 01/20/25 Subjective Subjective Interval history: No overnight events. Patient initially scheduled for MICHELLE-->changed to Echo Transesophageal. Siddiqui catheter removed. Asprin 81 mg and Plavix 75 mg Qday added. Aspirin 325 Stopped. Short term SNF placement planned. No bowel movement recorded, Lactulose scheduled. Patient denied double vision or blurry vision. Patient deneid SOB or chest pain. Exam Vital Signs Temp Pulse Resp BP Pulse Ox O2 Del Method O2 Flow Rate 96.9 F 63 24 H 140/73 H 97 Room Air 2 01/20/25 12:01/20/25 12:01/20/25 12:01/20/25 12:01/20/25 12:01/20/25 12:01/18/25 16:00 Narrative Exam General Appearance: Alert & Oriented X2, well-nourished female who is lying in bed in no acute distress HEENT: Skull symmetrical and atraumatic. Conjunctivae pin and moist. Pupils equal, round, reactive to light and accommodation (PERRL). External ear without lesion or discharge. Straight, nares patient, mucosa pink, no discharge. No thyroid nodule appreciated. No cervical lymphadenopathy. Cardio: Marty Rate and Rhythm with S1 and S2 heart sounds. No murmurs or extra heart sounds auscultated. No bruits on carotid auscultation. No peripheral edema or cyanosis. Lungs: Symmetric with good expansion. Chest and back non-tender. Breath sounds vesicular without crackles, wheezing or rhonchi Abdomen: Non-tender, Non-distended, Normal Reactive Bowel Sounds Neuro: Alert, cooperative, oriented to person, place, and No time. Speech dysarthic. Improved Right facial droop. CN grossly intact. Upper motor strength 5/5 and Lower motor strength 4/5. Sensation intact. Objective Labs 01/20/25 04:40 01/20/25 04:40 Labs: Laboratory Results - last 24 hr 01/20/25 04:40 WBC 9.3 RBC 4.54 Hgb 13.6 Hct 40.7 MCV 90 MCH 30.0 MCHC 33.4 RDW Std Deviation 44.6 Plt Count 189 Neut % (Auto) 68 Lymph % (Auto) 22 [place] % (Auto) 7 Eos % (Auto) 3 Baso % (Auto) 0 Neut # (Auto) 6.3 Lymph # (Auto) 2.0 [place] # (Auto) 0.7 Eos # (Auto) 0.3 Baso # (Auto) 0.0 Immature Gran # (Auto) 0.06 H Absolute Nucleated RBC 0.00 Immature Gran % 1 H Nucleated RBC % 0 PT 12.2 INR 1.1 APTT 29.1 Sodium 141 Potassium 3.8 Chloride 106 Carbon Dioxide 27.3 Anion Gap 8 BUN 7 L Creatinine 0.7 Estim Creat Clear Calc 86.0 eGFR > 60 BUN/Creatinine Ratio 10 L Glucose 114 H Calculated Osmolality 280 Calcium 8.6 Corrected Calcium 8.8 Phosphorus 3.3 Magnesium 2.1 Total Bilirubin 0.5 AST 19 ALT 16 Alkaline Phosphatase 74 Total Protein 6.6 Albumin 3.7 Globulin 2.9 Albumin/Globulin Ratio 1.3 Quality Measures Quality Measures none Advance care planning discussed with:: patient Assessment & Plan Assessment Current Active Medications: Generic Name Dose Route Start Last Admin Trade Name Freq PRN Reason Stop Dose Admin Acetaminophen 650 mg 01/16/25 15:59 01/19/25 12:45 Acetaminophen 325 Mg Tablet PO 02/15/25 15:58 650 mg Q6H PRN Administration Pain 1-3 or Fever >100.3 Aspirin 325 mg 01/17/25 09:00 01/20/25 08:46 Aspirin 325 Mg Tablet PO 02/16/25 08:59 Not Given QDAY MELA Atorvastatin Calcium 40 mg 01/16/25 21:00 01/19/25 20:48 Atorvastatin Calcium 20 Mg Tablet PO 02/15/25 20:59 40 mg HS MELA Administration Clopidogrel Bisulfate 75 mg 01/21/25 09:00 Clopidogrel Bisulfate 75 Mg Tablet PO 02/20/25 08:59 QDAY MELA Dextrose 25 ml 01/16/25 17:06 Dextrose 50%-Water Inj 50 Ml Syringe IV 02/15/25 17:05 Q15MIN PRN BG 50-70 responsive npo pt Dextrose 50 ml 01/16/25 17:06 Dextrose 50%-Water Inj 50 Ml Syringe IV 02/15/25 17:05 Q15MIN PRN BG <50 OR BG <70 & pt unresponsive Divalproex Sodium 500 mg 01/16/25 21:00 01/20/25 08:[address] 500 Mg Tablet.Dr PO 02/15/25 20:59 500 mg BID MELA Administration Glucagon 1 mg 01/16/25 17:06 Glucagon Inj 1 Mg Vial IM Q15MIN PRN BG <70, and no IV access Heparin Sodium (Porcine) 5,000 unit 01/16/25 21:00 01/20/25 08:46 Heparin Sod Inj 5000 Unit/Ml Vial SC 01/30/25 20:59 Not Given Q12HR MELA Hydralazine HCl 10 mg 01/16/25 19:45 Hydralazine Inj 20 Mg/Ml Vial IV 02/15/25 19:44 Q4HR PRN Hypertension Losartan Potassium 25 mg 01/18/25 09:00 01/20/25 08:43 Losartan Potassium 25 Mg Tablet PO 02/17/25 08:59 25 mg QDAY MELA Administration Non-Formulary Medication 5 mg 01/16/25 21:00 01/17/25 13:36 Trihexyphenidyl Hydrochloride PO 02/15/25 20:59 Not Given BID MELA Ondansetron HCl 4 mg 01/16/25 15:59 Ondansetron Inj 2 Mg/Ml Inj 2 Ml IV 02/15/25 15:58 Q6H PRN NAUSEA OR VOMITING Protocol Pantoprazole Sodium 40 mg 01/21/25 09:00 Pantoprazole 40 Mg Tablet PO 02/20/25 08:59 QDAY MELA Protocol Polyethylene Glycol 17 gm 01/20/25 09:00 01/20/25 14:22 Polyethylene Glycol 17 Gm Packet PO 02/19/25 08:59 17 gm QDAY MELA Administration Sennosides 1 tab 01/19/25 07:51 Senna/Docusate Sod 1 Tab Tablet PO 02/18/25 07:50 QDAY PRN CONSTIPATION Protocol Ziprasidone 80 mg 01/16/25 21:00 01/20/25 09:51 Ziprasidone 20 Mg Capsule PO 02/15/25 20:59 80 mg BID MELA Administration Plan Patient is a 69-year-old female with a past medical history of schizophrenia and bipolar disorder, history of depression and anxiety who was admitted for ischemic stroke. # Acute embolic CVA Etiology: Ischemic stroke noted on MRI, likely secondary to embolic or plaque Diagnostics: MRI: Acute infarcts left cerebellar hemisphere, left vermis, left cerebellar peduncle, left occipital lobe, left temporal lobe Repeat CT head (01/19/2025): Large acute infarct left cerebellar hemisphere and smaller acute infarct left occipital lobe Head CT: Large acute nonhemorrhagic infarct left side of cerebellar hemisphere Plan: -pending TTE -Aspirin 325 mg once a day-->Aspirin 81 mg qday & Plavix 75 mg qday 01/21/2025 -Neuro Checks Q4 hours -Aspiration Precautions, Head of bed 30 degrees -Bedside swallow screen and evaluation -Euglycemia and avoid Hyperthermia -Acetaminophen PRN -Mechanical Diet 3 -BNP and CBC -No permissive HTN given patient is >48 hrs since symptoms first note. -Hydralzine PRN -Sliding Scale -PT-->rec may go home if caregiver is supportive & Available, if not SNF placement recommended. Given caregiver does not live with pat[place], SNF would be better option. -Neurology consulted, Appreciate recommendation, Dr. Youssef #Right Bundle Branch Block #Bradycardia, resolved #Asymptomatic Patient is on multiple psychiatry medication that some side effects include QT prolongation such as Ziprasidone 80 mg PO BID. In additoin, Trihexyphenidyl may cause bradycardia given parasypathetic effects-->Hold. DDX: atrial fibrilation less likely given p waves noted on EKG vs Atrial Flutter which would help explain exensive stroke. Plan -Continue Trihexyphenidyl #Schizophrenia and Bipolar disorder #hx of Depression #hx of Anxiety Past medical history of schizophrenia and bipolar who is complicant with medication. Plan: Continue Divalprex, Trihexyphenidly, and ziprasidone home medication. #Leukocytosis,resovled. #Starvation Ketosis, resolved Health Maintenance: Disp: Pt is currently admitted to floors for further management of stroke, awaiting TTE FEN: Dysphasia Diet 3 DVT: on subQ heparin Lines: Siddiqui Catheter (removed today, follow for urinary retenion) and Tele box Code: Full - The patient's plan was discussed with attending Dr. Seymour and senior residents Dr. Philly Chadwick MD PGY1 Internal Medicine
[2025-01-20] MEDS: ATORVASTATIN CALCIUM 20 MG TABLET 40 MG PO (20:30)
[2025-01-20] MEDS: HEPARIN SOD INJ 5000 UNIT/ML VIAL SC (20:33)
[2025-01-20] MEDS: LACTULOSE SYRUP 20 GM/30 ML UDC 10 GM PO (21:44)
[2025-01-21] VITALS (7 sets, daily range): BP systolic 112–145; BP diastolic 62–73; PULSE 65–84; RESP 15–20; TEMP 36.1–36.6; O2SAT 92–99
[2025-01-21] MEDS: LACTULOSE SYRUP 20 GM/30 ML UDC 10 GM PO ×2 (05:06→14:15)
[2025-01-21 05:12] LABS: Basophils % (Auto) 0 % (0-2.5); Eosinophils # (Auto) 0.3 Thou/mm3 (0.0-0.5); Eosinophils % (Auto) 3 % (0-10); Hematocrit 43.5 % (36.0-46.0); Hemoglobin 14.5 g/dL (12.0-16.0); Immature Granulocytes % (Auto) 1 % (0-0); Immature Granulocytes Auto 0.05 Thou/mm3 (0.00-0.00); Lymphocytes # (Auto) 2.1 Thou/mm3 (1.0-4.8); Lymphocytes % (Auto) 22 % (10-50); Mean Corpuscular HGB Conc 33.3 g/dl (31.0-37.0); Mean Corpuscular Hemoglobin 29.9 pg (25.0-35.0); Mean Corpuscular Volume 90 fL (80-100); Monocytes # (Auto) 0.7 Thou/mm3 (0.0-0.8); Monocytes % (Auto) 7 % (0-12); Neutrophils # (Auto) 6.4 Thou/mm3 (1.8-7.7); Neutrophils % (Auto) 67 % (37-80); Nucleated Red Blood Cell % 0 /100 WBC (0); Platelet Count 212 Thou/mm3 (140-440); RDW Standard Deviation 45.1 fL (36.4-46.3); Red Blood Count 4.85 Miln/mm3 (4.00-5.20); White Blood Count 9.5 Thou/mm3 (3.6-11.0)
[2025-01-21 05:40] LABS: Alanine Aminotransferase 22 U/L (10-49); Albumin, Serum 3.8 gm/dL (3.4-4.8); Albumin/Globulin Ratio 1.2 (1.2-2.2); Alkaline Phosphatase 76 U/L (46-116); Anion Gap 8 (7-16); Aspartate Amino Transferase 24 U/L (0-34); BUN/Creatinine Ratio 13 Ratio (12-20); Bilirubin,Total 0.5 mg/dL (0.3-1.2); Blood Urea Nitrogen 10 mg/dL (9-23); Calcium 8.7 mg/dL (8.3-10.6); Calcium (Corrected) 8.9 mg/dL (8.5-10.1); Carbon Dioxide 27.8 mMol/L (20.0-31.0); Chloride 107 mMol/L (98-107); Creatinine (Component) 0.8 mg/dL (0.6-1.3); Estimated Creatinine Clearance 75.6 mL/min (>60); Globulin 3.1 gm/dL (2.3-3.5); Glucose 102 mg/dL (74-106); Magnesium 2.3 mg/dL (1.6-2.6); Osmolality,Calculated 283 (275-295); Potassium 4.2 mMol/L (3.4-5.1); Sodium 143 mMol/L (136-145); Total Protein 6.9 gm/dL (5.7-8.2); eGFR > 60 See Note
[2025-01-21] MEDS: ZIPRASIDONE 20 MG CAPSULE 80 MG PO ×2 (10:01→20:14)
[2025-01-21] MEDS: ASPIRIN EC 81 MG TABEC PO (10:02)
[2025-01-21] MEDS: DIVALPROEX SOD DR 500 MG TABLET.DR PO ×2 (10:02→20:14)
[2025-01-21] MEDS: CLOPIDOGREL BISULFATE 75 MG TABLET PO (10:02)
[2025-01-21] MEDS: PANTOPRAZOLE 40 MG TABLET PO (10:02)
[2025-01-21] MEDS: LOSARTAN POTASSIUM 25 MG TABLET PO (10:02)
[2025-01-21] MEDS: POLYETHYLENE GLYCOL 17 GM PACKET PO (10:03)
[2025-01-21] MEDS: HEPARIN SOD INJ 5000 UNIT/ML VIAL SC ×2 (10:03→20:13)
[2025-01-21] MEDS: ACETAMINOPHEN 325 MG TABLET 650 MG PO ×2 (10:20→18:02)
--- NOTE | 2025-01-21 10:35 | PD.RESPRO ---
Documentation for date of: 01/21/25 Subjective Subjective Interval history: No acute overnight events noted. Seen and examined at bedside and patient's only complaint is that of a headache. Otherwise, denies lightheadedness, shortness of breath, and chest discomfort. Telemonitor reviewed and patient in normal sinus rhythm with HR in 80s. Vital signs stable, labs reviewed and unremarkable. Obtained TTE yesterday and bubble study negative for PFO or ASD, normal LV size and function, EF 55-60%, stage 1 diastolic dysfunction; normal RV size and function, normal RVSP; mild AV sclerosis, trace MR, mild TR; consider MICHELLE if high clinical risk or suspicion. Exam Vital Signs Temp Pulse Resp BP Pulse Ox O2 Del Method O2 Flow Rate 96.9 F 78 20 125/65 92 L Room Air 2 01/21/25 08:00 01/21/25 10:02 01/21/25 08:00 01/21/25 10:02 01/21/25 08:00 01/21/25 08:00 01/18/25 16:00 Narrative Exam General: AOx3, no acute distress, requires questions to be repeated, answers slowly but appropriately HEENT: NC/AT, mucous membranes moist, bilateral sclera anicteric Cardiovascular: regular rate and rhythm, S1/S2 present, no murmurs appreciated Pulmonary: clear to auscultation bilaterally, no rales/rhonchi/wheezes Abdominal: soft, non-tender, non-distended, no rebound/guarding, normal bowel sounds present Musculoskeletal: normal ROM, no peripheral edema Skin: warm and dry, intact, no rashes Neuro: no focal deficits Objective Labs 01/21/25 04:52 01/21/25 04:52 Labs: Laboratory Results - last 24 hr 01/16/25 01/21/25 11:57 04:52 WBC 9.5 RBC 4.85 Hgb 14.5 Hct 43.5 MCV 90 MCH 29.9 MCHC 33.3 RDW Std Deviation 45.1 Plt Count 212 Neut % (Auto) 67 Lymph % (Auto) 22 [place] % (Auto) 7 Eos % (Auto) 3 Baso % (Auto) 0 Neut # (Auto) 6.4 Lymph # (Auto) 2.1 [place] # (Auto) 0.7 Eos # (Auto) 0.3 Baso # (Auto) 0.0 Immature Gran # (Auto) 0.05 H Absolute Nucleated RBC 0.00 Immature Gran % 1 H Nucleated RBC % 0 Sodium 143 Potassium 4.2 Chloride 107 Carbon Dioxide 27.8 Anion Gap 8 BUN 10 Creatinine 0.8 Estim Creat Clear Calc 75.6 eGFR > 60 BUN/Creatinine Ratio 13 Glucose 102 Calculated Osmolality 283 Calcium 8.7 Corrected Calcium 8.9 Phosphorus 4.0 Magnesium 2.3 Total Bilirubin 0.5 AST 24 ALT 22 Alkaline Phosphatase 76 Total Protein 6.9 Albumin 3.8 Globulin 3.1 Albumin/Globulin Ratio 1.2 Misc Test Result See Sep Rpt Quality Measures Quality Measures none Advance care planning discussed with:: patient Assessment & Plan Assessment Current Active Medications: Generic Name Dose Route Start Last Admin Trade Name Freq PRN Reason Stop Dose Admin Acetaminophen 650 mg 01/16/25 15:59 01/21/25 10:20 Acetaminophen 325 Mg Tablet PO 02/15/25 15:58 650 mg Q6H PRN Administration Pain 1-3 or Fever >100.3 Aspirin 81 mg 01/21/25 09:00 01/21/25 10:02 Aspirin Ec 81 Mg Tabec PO 02/20/25 08:59 81 mg QDAY MELA Administration Atorvastatin Calcium 40 mg 01/16/25 21:00 01/20/25 20:30 Atorvastatin Calcium 20 Mg Tablet PO 02/15/25 20:59 40 mg HS MELA Administration Clopidogrel Bisulfate 75 mg 01/21/25 09:00 01/21/25 10:02 Clopidogrel Bisulfate 75 Mg Tablet PO 02/20/25 08:59 75 mg QDAY MELA Administration Dextrose 25 ml 01/16/25 17:06 Dextrose 50%-Water Inj 50 Ml Syringe IV 02/15/25 17:05 Q15MIN PRN BG 50-70 responsive npo pt Dextrose 50 ml 01/16/25 17:06 Dextrose 50%-Water Inj 50 Ml Syringe IV 02/15/25 17:05 Q15MIN PRN BG <50 OR BG <70 & pt unresponsive Divalproex Sodium 500 mg 01/16/25 21:00 01/21/25 10:[address] 500 Mg Tablet.Dr PO 02/15/25 20:59 500 mg BID MELA Administration Glucagon 1 mg 01/16/25 17:06 Glucagon Inj 1 Mg Vial IM Q15MIN PRN BG <70, and no IV access Heparin Sodium (Porcine) 5,000 unit 01/16/25 21:00 01/21/25 10:03 Heparin Sod Inj 5000 Unit/Ml Vial SC 01/30/25 20:59 5,000 unit Q12HR MELA Administration Hydralazine HCl 10 mg 01/16/25 19:45 Hydralazine Inj 20 Mg/Ml Vial IV 02/15/25 19:44 Q4HR PRN Hypertension Lactulose 10 gm 01/20/25 22:00 01/21/25 05:06 Lactulose Syrup 20 Gm/30 Ml Udc PO 02/19/25 21:59 10 gm TID MELA Administration Protocol Losartan Potassium 25 mg 01/18/25 09:00 01/21/25 10:02 Losartan Potassium 25 Mg Tablet PO 02/17/25 08:59 25 mg QDAY MELA Administration Non-Formulary Medication 5 mg 01/16/25 21:00 01/17/25 13:36 Trihexyphenidyl Hydrochloride PO 02/15/25 20:59 Not Given BID MELA Ondansetron HCl 4 mg 01/16/25 15:59 Ondansetron Inj 2 Mg/Ml Inj 2 Ml IV 02/15/25 15:58 Q6H PRN NAUSEA OR VOMITING Protocol Pantoprazole Sodium 40 mg 01/21/25 09:00 01/21/25 10:02 Pantoprazole 40 Mg Tablet PO 02/20/25 08:59 40 mg QDAY MELA Administration Protocol Polyethylene Glycol 17 gm 01/20/25 09:00 01/21/25 10:03 Polyethylene Glycol 17 Gm Packet PO 02/19/25 08:59 17 gm QDAY MELA Administration Sennosides 1 tab 01/19/25 07:51 Senna/Docusate Sod 1 Tab Tablet PO 02/18/25 07:50 QDAY PRN CONSTIPATION Protocol Ziprasidone 80 mg 01/16/25 21:00 01/21/25 10:01 Ziprasidone 20 Mg Capsule PO 02/15/25 20:59 80 mg BID MELA Administration Plan Carmen Duran is a 69-y/o female with a PMHx morbid obesity, bipolar disorder, schizophrenia, depression, anxiety, COVID-19 infection in 2021 with acute encephalopathy and hyperammonemia during that admission presented to ED for dizziness, nausea as well as headache. Endorsed room spinning/positional dizziness worse with movements with associated headache x2 days and nausea but no emesis. Denies chest discomfort, SOB, orthopnea, PND, or palpitations or any other previous major cardiac disease. CT head showed large, acute nonhemorrhagic infarct of left cerebral hemisphere and MRI confirmed embolic stroke pattern in left cerebellar hemisphere, left vermis, left cerebellar peritoneal, left occipital lobe as well as left temporal lobe. Cardiology consulted for EKG showing A-fib (rate controlled), bradycardia, and rule-out for cardioembolic etiology of stroke. #Acute multiembolic pattern CVA Patient presented with dizziness, nausea, vomiting, and impaired gait. CT head non-contrast showed large acute nonhemorrhagic infarct of the left cerebellar hemisphere MRI/MRA brain without contrast showed embolic pattern of stroke including acute infarcts in the left cerebellar hemisphere, left vermis, left cerebellar peduncle, left occipital lobe, and left temporal lobe. TTE: bubble study negative for PFO or ASD, normal LV size and function, EF 55-60%, stage 1 diastolic dysfunction; normal RV size and function, normal RVSP; mild AV sclerosis, trace MR, mild TR; consider MICHELLE if high clinical risk or suspicion. ? Continue aspirin, high intensity statin ? Can obtain MICHELLE outpatient as probe is still unavailable #Sinus bradycardia EKG showed rate of 51 and right bundle branch block, read is showing afib however p waves do appear to be visible, it is a poor quality EKG with likely artifact. Patient is denying any sort of implant or spinal stimulator that is present. At present the patient's symptoms are mostly likely from the acute stroke rather than the bradycardia. Repeat EKG showed sinus bradycardia with right bundle branch block rather than a-fib with slow ventricular response. ? Avoid chronotropic agents #Hypertension Patient has been hypertensive with systolic BP ranging up to 160s. ? If BP is elevated, can start ARB #NSTEMI type 2 #Elevated troponin - downtrended Initial troponin was 0.113, downtrended. Likely demand ischemia secondary to stroke event. ? No need to continue trending Rest of conditions to continue current management per primary team: #History of bipolar disorder #History of schizophrenia #History of depression #History of anxiety ----- Plan discussed with attending physician Dr. Ltaasha Martin MD PGY-1 Internal Medicine Attending Provider Attestation/Addendum I have personally seen and examined the patient separately on the above date of service and discussed the plan of care with the resident. I reviewed the resident Dr. Junior Martin consultation progress note and agree with the resident findings and plan in the note above and have also edited the documentation to reflect my findings and plan. Kalin Pagan M.D. Interventional Cardiology
--- NOTE | 2025-01-21 13:10 | ESDS_ITS ---
<Statement entered by Janee Seymour MD - 01/25/25 15:07> I reviewed above note and agree with findings and plans. I have also personally examined the patient with medicine team and went over assessment and plan with medical team including internet e commerce specialist and resident physician. Discharge time more than 30 minutes. <Statement entered by Bárbara Fraga MD - 01/21/25 15:39> I discussed with and supervised the internet e commerce specialist physician who took care of this patient. I personally saw and examined the patient and discussed the assessment and plan with the entire medicine team, including my attending , I agree with the assessment and plan as documented below Bárbara Fraga M.D. PGY-2 Disclaimer: Despite multiple revisions, due to the dictation software being used, the document bellow may not be free of grammatical errors including phonetic/typographic errors. However, this does not deter from our commitment to providing health care in the patient's best interest in mind. Planned Discharge Date 01/21/25 DS: Providers Provider Date of admission: 01/16/25 15:59 Primary care physician: Physician No Primary/Family Admitting Provider: Hermes Vazquez DO Attending Provider on Admission: Janee Seymour MD Consults: 01/16/25 17:06 Consult to Neurology / Tele-Neurology Urgent Comment: Consulting Provider: Jeremiah Youssef Referral Physical Therapy Urgent Comment: Physician Instructions: Instructions: stroke Referral Speech Therapy Stat Comment: stroke 01/17/25 01:56 [facility] Referral - Knowledge Deficit Routine Comment: Positive screening for knowledge deficit needs. 01/17/25 10:06 Consult to Cardiology Routine Comment: Consulting Provider: Kalin Pagan 01/19/25 21:46 Referral [place] Routine Comment: Attending Provider on DC: Cathryn Chadwick MD Discharging Provider: Cathryn Chadwick MD DS: Diagnosis Problem List Completed Was Problem List Reviewed/Reconciled?: Yes Hospital Course Hospital Course Hospital course: Summary: Patient is a 69-year-old female with a past medical history of schizophrenia and bipolar disorder, history of depression and anxiety who was admitted for stroke, likely embolic. ER Course: Vitals in the ER, blood pressure 167/78, heart 61, RR 18, 91% on room air. WBC 14.5 elevated with hemoglobin within normal limits. CMP showed sodium within normal limits 145, potassium 4 bicarb 23.9 anion gap of 12, renal function within normal limits, GFR greater than 60, glucose 109, A1c 5.3 Troponin 0.113, 0.083 downtrending EKG not uploaded, but ordered UA showing protein, ketones, RBCs 14, Stroke alert not called given greater than 48 hours patient is not a candidate for tPA/No tele neuro Head CT: Large acute nonhemorrhagic infarct left side of cerebellar hemisphere Hospital Course: Patient is a 69-year-old female with a past medical history of schizophrenia- bipolar, history of depression, history of anxiety who was admitted to the hospital on 01/16/2025 secondary to stroke workup which found on head CT a large acute nonhemorrhagic infarct in left side of the cerebellar hemisphere. Given that the stroke was greater than 48 hours ago since initial symptoms patient was not a candidate for tPA. Medical management was recommended. Patient was started on aspirin, clopidogrel, and atorvastatin. Neurology, ry Hagan onsulted. Cardiology Dr. Pagan consulted. Physical Therapy and Speech Consulted. Dysphasia Diet 3. MRI brain showed acute infarcts left cerebellar hemisphere, left vermis, left cerebellar peduncle, left occipital lob, and left emporal lobe. Repeat CT head showed no acute acute bleeding. Large acute infarct of left cerebellar hemisphere and smaller acute infarct left occipital lobe. Instructions: -Please continue Aspirin 81 mg for stroke prevention -Please continue Clopidogrel 75 mg for stroke prevention -please continue Atorvastatin 40 mg at night to decrease cholesterol -Continue the rest of your medication -Please follow up with your primary care provider within one week of discharge -If your symptoms worsen,please seek immediate medical attention and return to your nearest emergency room and follow up with Dr. Youssef -If you do not have a primary care provider, you may follow up at the [facility] at [facility] [address], [place] [address], # Acute CVA likely embolic #Right Bundle Branch Block #Bradycardia, resolved #Asymptomatic #Schizophrenia and Bipolar disorder #Depression #Anxiety #Leukocytosis,resovled. #Starvation Ketosis, resolved - The patient's plan was discussed with attending Dr. Seymour and senior residents Dr. Philly Chadwick MD PGY1 Internal Medicine Time Spent with Patient Time attestation: Total time spent providing and/or coordinating discharge services: Exam Vital Signs Temp Pulse Resp BP Pulse Ox O2 Del Method O2 Flow Rate 96.9 F 78 20 125/65 92 L Room Air 2 01/21/25 08:00 01/21/25 10:02 01/21/25 08:00 01/21/25 10:02 01/21/25 08:00 01/21/25 08:00 01/18/25 16:00 Discharge Plan Plan Patient Disposition: Xfer Skilled Nsg Fac (SNF) Disposition Comment: [facility] Care Plan Goals: Instructions: -Please continue Aspirin 81 mg for stroke prevention -Please continue Clopidogrel 75 mg for stroke prevention -please continue Atorvastatin 40 mg at night to decrease cholesterol -Continue the rest of your medication -Please follow up with your primary care provider within one week of discharge -If your symptoms worsen,please seek immediate medical attention and return to your nearest emergency room and follow up with Dr. Youssef -If you do not have a primary care provider, you may follow up at the [facility] at [address] [place] [address] [address], [place] [address], Prescriptions/Referrals Prescriptions/Med Rec: New clopidogrel 75 mg Tablet 75 mg PO QDAY 14 Days Qty: 14 0RF aspirin [Ecotrin Low Strength] 81 mg Tablet,Delayed Release (Dr/Ec) 81 mg PO QDAY 14 Days Qty: 14 0RF atorvastatin 40 mg tablet 40 mg PO QPM Qty: 14 0RF Continued ziprasidone HCl 80 mg capsule 1 cap PO BID Patient Comments: TAKE ONE CAPSULE BY MOUTH TWICE DAILY divalproex 500 mg tablet,delayed release (DR/EC) 2 tab PO HS Patient Comments: TAKE TWO TABLETS BY MOUTH AT BEDTIME trihexyphenidyl 5 mg tablet 1 tab PO BIDWM Patient Comments: TAKE ONE TABLET BY MOUTH TWICE DAILY WITH FOOD Referrals: Kalin Pagan MD [Physician] - No Primary/Family,Physician [Primary Care Provider] - Jeremiah Youssef MD [Physician] - Patient/Caregiver Discharge Instructions Education Materials: Preparing Your Home After Stroke, Discharge Instructions for Stroke Print Language: Tajik Stand Alone Forms: Lillian Award Info., Patient Portal Info Letter Discharge Order Discharge Orders: Discharge (Routine); Ordered 01/21/25 Ordered By: Cathryn Chadwick Quality Discharge Quality Measures VTE prophylaxis
--- NOTE | 2025-01-21 15:29 | PC.SS ---
follow up note: Patient has d/c orders. [facility] accepted. [facility] was pending. SS contacted them and spoke to rep. who will be clearing it today. SS set up transport through [facility]. However patient has not had a b.m. yet. Physician team aware. SS will set up for a later pear picker time and if patient has not had a b.m. then staff can cancel ride.
--- NOTE | 2025-01-21 16:52 | PC.SS ---
FURNACE ATTENDANT confirmed [facility] online closure. [facility] submitted to [facility] via file exchange.
[2025-01-21] MEDS: Milk Of Magnesia Susp 30 ML UDC PO (17:04)
[2025-01-21] MEDS: ATORVASTATIN CALCIUM 20 MG TABLET 40 MG PO (20:14)
[2025-01-22] VITALS (7 sets, daily range): BP systolic 100–133; BP diastolic 51–80; PULSE 67–84; RESP 15–19; TEMP 36.1–36.4; O2SAT 90–99; BMI 32.8
[2025-01-22] MEDS: LACTULOSE SYRUP 20 GM/30 ML UDC 10 GM PO ×2 (05:01→14:14)
[2025-01-22] MEDS: PANTOPRAZOLE 40 MG TABLET PO (08:33)
[2025-01-22] MEDS: HEPARIN SOD INJ 5000 UNIT/ML VIAL SC (08:33)
[2025-01-22] MEDS: CLOPIDOGREL BISULFATE 75 MG TABLET PO (08:33)
[2025-01-22] MEDS: ASPIRIN EC 81 MG TABEC PO (08:33)
[2025-01-22] MEDS: NA SU/NAHCO3/KC/PEG (Golytely) 4,000 ML BTL 4000 ML PO (08:34)
[2025-01-22] MEDS: LOSARTAN POTASSIUM 25 MG TABLET PO (08:34)
[2025-01-22] MEDS: ZIPRASIDONE 20 MG CAPSULE 80 MG PO (08:34)
[2025-01-22] MEDS: POLYETHYLENE GLYCOL 17 GM PACKET PO (08:34)
[2025-01-22] MEDS: DIVALPROEX SOD DR 500 MG TABLET.DR PO (08:34)
[2025-01-22] MEDS: METOCLOPRAMIDE INJ 5 MG/ML VIAL 2 ML 10 MG IVP (09:16)
[2025-01-22] MEDS: DiphenhydrAMINE INJ 50 MG/ML VIAL 12.5 MG IVP (09:17)
[2025-01-22] MEDS: KETOROLAC INJ 30 MG/ML VIAL 15 MG IVP (09:17)
--- NOTE | 2025-01-22 10:19 | ESPR_ITS ---
Documentation for date of: 01/22/25 Subjective Subjective Interval history: No acute overnight events noted. Seen and examined at bedside and patient's only complaint is that she is tired. Otherwise, denies lightheadedness, shortness of breath, and chest discomfort. Vital signs stable, labs reviewed and unremarkable. Telemonitor reviewed and patient in normal sinus rhythm with HR in 70s with right BBB noted, which is also seen on EKG 01/17. CBC and chem panel reviewed and unremarkable. TTE obtained and will undergo further work-up (MICHELLE) outpatient when probe is available. Exam Vital Signs Temp Pulse Resp BP Pulse Ox O2 Del Method O2 Flow Rate 97.5 F 70 15 100/51 L 90 L Room Air 2 01/22/25 08:00 01/22/25 08:34 01/22/25 08:00 01/22/25 08:34 01/22/25 08:00 01/22/25 08:00 01/22/25 04:00 Narrative Exam General: AOx3, no acute distress, requires questions to be repeated, answers slowly but appropriately HEENT: NC/AT, mucous membranes moist, bilateral sclera anicteric Cardiovascular: regular rate and rhythm, S1/S2 present, no murmurs appreciated Pulmonary: clear to auscultation bilaterally, no rales/rhonchi/wheezes Abdominal: soft, non-tender, non-distended, no rebound/guarding, normal bowel sounds present Musculoskeletal: normal ROM, no peripheral edema Skin: warm and dry, intact, no rashes Neuro: no focal deficits Objective Labs 01/21/25 04:52 01/21/25 04:52 Quality Measures Quality Measures VTE prophylaxis Advance care planning discussed with:: patient Assessment & Plan Assessment Current Active Medications: Generic Name Dose Route Start Last Admin Trade Name Freq PRN Reason Stop Dose Admin Acetaminophen 650 mg 01/16/25 15:59 01/21/25 18:02 Acetaminophen 325 Mg Tablet PO 02/15/25 15:58 650 mg Q6H PRN Administration Pain 1-3 or Fever >100.3 Aspirin 81 mg 01/21/25 09:00 01/22/25 08:33 Aspirin Ec 81 Mg Tabec PO 02/20/25 08:59 81 mg QDAY MELA Administration Atorvastatin Calcium 40 mg 01/16/25 21:00 01/21/25 20:14 Atorvastatin Calcium 20 Mg Tablet PO 02/15/25 20:59 40 mg HS MELA Administration Clopidogrel Bisulfate 75 mg 01/21/25 09:00 01/22/25 08:33 Clopidogrel Bisulfate 75 Mg Tablet PO 02/20/25 08:59 75 mg QDAY MELA Administration Dextrose 25 ml 01/16/25 17:06 Dextrose 50%-Water Inj 50 Ml Syringe IV 02/15/25 17:05 Q15MIN PRN BG 50-70 responsive npo pt Dextrose 50 ml 01/16/25 17:06 Dextrose 50%-Water Inj 50 Ml Syringe IV 02/15/25 17:05 Q15MIN PRN BG <50 OR BG <70 & pt unresponsive Divalproex Sodium 500 mg 01/16/25 21:00 01/22/25 08:[address] 500 Mg Tablet.Dr PO 02/15/25 20:59 500 mg BID MELA Administration Glucagon 1 mg 01/16/25 17:06 Glucagon Inj 1 Mg Vial IM Q15MIN PRN BG <70, and no IV access Heparin Sodium (Porcine) 5,000 unit 01/16/25 21:00 01/22/25 08:33 Heparin Sod Inj 5000 Unit/Ml Vial SC 01/30/25 20:59 5,000 unit Q12HR MELA Administration Hydralazine HCl 10 mg 01/16/25 19:45 Hydralazine Inj 20 Mg/Ml Vial IV 02/15/25 19:44 Q4HR PRN Hypertension Lactulose 10 gm 01/20/25 22:00 01/22/25 05:01 Lactulose Syrup 20 Gm/30 Ml Udc PO 02/19/25 21:59 10 gm TID MELA Administration Protocol Losartan Potassium 25 mg 01/18/25 09:00 01/22/25 08:34 Losartan Potassium 25 Mg Tablet PO 02/17/25 08:59 25 mg QDAY MELA Administration Non-Formulary Medication 5 mg 01/16/25 21:00 01/21/25 20:15 Trihexyphenidyl Hydrochloride PO 02/15/25 20:59 Not Given BID MELA Ondansetron HCl 4 mg 01/16/25 15:59 Ondansetron Inj 2 Mg/Ml Inj 2 Ml IV 02/15/25 15:58 Q6H PRN NAUSEA OR VOMITING Protocol Pantoprazole Sodium 40 mg 01/21/25 09:00 01/22/25 08:33 Pantoprazole 40 Mg Tablet PO 02/20/25 08:59 40 mg QDAY MELA Administration Protocol Polyethylene Glycol 17 gm 01/20/25 09:00 01/22/25 08:34 Polyethylene Glycol 17 Gm Packet PO 02/19/25 08:59 17 gm QDAY MELA Administration Sennosides 1 tab 01/19/25 07:51 Senna/Docusate Sod 1 Tab Tablet PO 02/18/25 07:50 QDAY PRN CONSTIPATION Protocol Ziprasidone 80 mg 01/16/25 21:00 01/22/25 08:34 Ziprasidone 20 Mg Capsule PO 02/15/25 20:59 80 mg BID MELA Administration Plan Carmen Duran is a 69-y/o female with a PMHx morbid obesity, bipolar disorder, schizophrenia, depression, anxiety, COVID-19 infection in 2021 with acute encephalopathy and hyperammonemia during that admission presented to ED for dizziness, nausea as well as headache. Endorsed room spinning/positional dizziness worse with movements with associated headache x2 days and nausea but no emesis. Denies chest discomfort, SOB, orthopnea, PND, or palpitations or any other previous major cardiac disease. CT head showed large, acute nonhemorrhagic infarct of left cerebral hemisphere and MRI confirmed embolic stroke pattern in left cerebellar hemisphere, left vermis, left cerebellar peritoneal, left occipital lobe as well as left temporal lobe. Cardiology consulted for EKG showing A-fib (rate controlled), bradycardia, and rule-out for cardioembolic etiology of stroke. #Acute multiembolic pattern CVA Patient presented with dizziness, nausea, vomiting, and impaired gait. CT head non-contrast showed large acute nonhemorrhagic infarct of the left cerebellar hemisphere MRI/MRA brain without contrast showed embolic pattern of stroke including acute infarcts in the left cerebellar hemisphere, left vermis, left cerebellar peduncle, left occipital lobe, and left temporal lobe. TTE: bubble study negative for PFO or ASD, normal LV size and function, EF 55- 60%, stage 1 diastolic dysfunction; normal RV size and function, normal RVSP; mild AV sclerosis, trace MR, mild TR; consider MICHELLE if high clinical risk or suspicion. ? Continue aspirin, high intensity statin ? Can obtain MICHELLE outpatient as probe is still unavailable #Sinus bradycardia EKG showed rate of 51 and right bundle branch block, read is showing afib however p waves do appear to be visible, it is a poor quality EKG with likely artifact. Patient is denying any sort of implant or spinal stimulator that is present. At present the patient's symptoms are mostly likely from the acute stroke rather than the bradycardia. Repeat EKG showed sinus bradycardia with right bundle branch block rather than a-fib with slow ventricular response. ? Avoid chronotropic agents #Hypertension Patient has been hypertensive with systolic BP ranging up to 160s. ? If BP is elevated, can start ARB #NSTEMI type 2 #Elevated troponin - downtrended Initial troponin was 0.113, downtrended. Likely demand ischemia secondary to stroke event. ? No need to continue trending Rest of conditions to continue current management per primary team: #History of bipolar disorder #History of schizophrenia #History of depression #History of anxiety ----- Plan discussed with attending physician Dr. Latasha Martin MD PGY-1 Internal Medicine Attending Provider Attestation/Addendum I have personally seen and examined the patient separately on the above date of service and discussed the plan of care with the resident. I reviewed the resident Dr. Junior Martin consultation progress note and agree with the resident findings and plan in the note above and have also edited the documentation to reflect my findings and plan. Kalin Pagan M.D. Interventional Cardiology
--- NOTE | 2025-01-22 10:39 | ESPR_ITS ---
Documentation for date of: 01/22/25 Subjective Subjective Interval history: Not overnight acute events This morning at the bedside, patient is AOx4, saturating well on room air, responding questions properly, tolerating p.o. Endorse that she having some headache associated to dizzy spells, denied nausea vomiting, chest pain or any other associated symptom at the moment Exam Vital Signs Temp Pulse Resp BP Pulse Ox O2 Del Method O2 Flow Rate 97.5 F 70 15 100/51 L 90 L Room Air 2 01/22/25 08:00 01/22/25 08:34 01/22/25 08:00 01/22/25 08:34 01/22/25 08:00 01/22/25 08:00 01/22/25 04:00 Narrative Exam General: No acute distress, well appearing, alert, interactive. HEENT: NC/AT, PERRL, EOMI, Good conjugate gaze, moist mucous membranes Neck: Supple, No masses, No adenopathy, carotid pulse 2+ bilaterally without bruits, No JVD, normal range of motion. Chest: Symmetrical, atraumatic, and with equal expansion , Nontender on palpation no deformity and no crepitus. CVS: S1 and S2 present, Regular rate and rhythm, No murmurs, rubs or gallops perceived during auscultation. Lungs: Normal respiratory effort, CTAB, no wheezing, rhonchi or rales perceived during auscultation, No intercostal or subcostal retraction. Abdomen : Soft, no tenderness to palpation, no guarding ,no rebound Extremities: No edema, warm well perfused, normal tone and ROM, strength and sensation intact, cap refill less than 2, +2 dp equal bilaterally, able to move all 4 extremities spontaneously. Skin: Intact, no rashes, no lesions, no erythema or jaundice noted Neuro: AOx4, reflex symmetric and sensation normal, no focal neurologic deficits noted, GCS 15, gait not assessed, able to move all 4 extremities spontaneously, strength 5/5 in BL U/L extremities sensation preserved Psych: Appropriate mood and affect. Objective Labs 01/21/25 04:52 01/21/25 04:52 Quality Measures Quality Measures VTE prophylaxis Advance care planning discussed with:: patient Assessment & Plan Assessment Current Active Medications: Generic Name Dose Route Start Last Admin Trade Name Freq PRN Reason Stop Dose Admin Acetaminophen 650 mg 01/16/25 15:59 01/21/25 18:02 Acetaminophen 325 Mg Tablet PO 02/15/25 15:58 650 mg Q6H PRN Administration Pain 1-3 or Fever >100.3 Aspirin 81 mg 01/21/25 09:00 01/22/25 08:33 Aspirin Ec 81 Mg Tabec PO 02/20/25 08:59 81 mg QDAY MELA Administration Atorvastatin Calcium 40 mg 01/16/25 21:00 01/21/25 20:14 Atorvastatin Calcium 20 Mg Tablet PO 02/15/25 20:59 40 mg HS MELA Administration Clopidogrel Bisulfate 75 mg 01/21/25 09:00 01/22/25 08:33 Clopidogrel Bisulfate 75 Mg Tablet PO 02/20/25 08:59 75 mg QDAY MELA Administration Dextrose 25 ml 01/16/25 17:06 Dextrose 50%-Water Inj 50 Ml Syringe IV 02/15/25 17:05 Q15MIN PRN BG 50-70 responsive npo pt Dextrose 50 ml 01/16/25 17:06 Dextrose 50%-Water Inj 50 Ml Syringe IV 02/15/25 17:05 Q15MIN PRN BG <50 OR BG <70 & pt unresponsive Divalproex Sodium 500 mg 01/16/25 21:00 01/22/25 08:[address] 500 Mg Tablet.Dr PO 02/15/25 20:59 500 mg BID MELA Administration Glucagon 1 mg 01/16/25 17:06 Glucagon Inj 1 Mg Vial IM Q15MIN PRN BG <70, and no IV access Heparin Sodium (Porcine) 5,000 unit 01/16/25 21:00 01/22/25 08:33 Heparin Sod Inj 5000 Unit/Ml Vial SC 01/30/25 20:59 5,000 unit Q12HR MELA Administration Hydralazine HCl 10 mg 01/16/25 19:45 Hydralazine Inj 20 Mg/Ml Vial IV 02/15/25 19:44 Q4HR PRN Hypertension Lactulose 10 gm 01/20/25 22:00 01/22/25 05:01 Lactulose Syrup 20 Gm/30 Ml Udc PO 02/19/25 21:59 10 gm TID MELA Administration Protocol Losartan Potassium 25 mg 01/18/25 09:00 01/22/25 08:34 Losartan Potassium 25 Mg Tablet PO 02/17/25 08:59 25 mg QDAY MELA Administration Non-Formulary Medication 5 mg 01/16/25 21:00 01/21/25 20:15 Trihexyphenidyl Hydrochloride PO 02/15/25 20:59 Not Given BID MELA Ondansetron HCl 4 mg 01/16/25 15:59 Ondansetron Inj 2 Mg/Ml Inj 2 Ml IV 02/15/25 15:58 Q6H PRN NAUSEA OR VOMITING Protocol Pantoprazole Sodium 40 mg 01/21/25 09:00 01/22/25 08:33 Pantoprazole 40 Mg Tablet PO 02/20/25 08:59 40 mg QDAY MELA Administration Protocol Polyethylene Glycol 17 gm 01/20/25 09:00 01/22/25 08:34 Polyethylene Glycol 17 Gm Packet PO 02/19/25 08:59 17 gm QDAY MELA Administration Sennosides 1 tab 01/19/25 07:51 Senna/Docusate Sod 1 Tab Tablet PO 02/18/25 07:50 QDAY PRN CONSTIPATION Protocol Ziprasidone 80 mg 01/16/25 21:00 01/22/25 08:34 Ziprasidone 20 Mg Capsule PO 02/15/25 20:59 80 mg BID MELA Administration Plan Summary: The patient is a 69-year-old female with a past medical history of bipolar disorder, schizophrenia, anxiety and depression presents to the ED with dizziness and nausea. Found to have acute CVA, #Acute infarcts of left cerebral MCA and left occipital lobe Patient presented with dizziness, nausea, presyncopal events. Reported episodes of vertigo as well as a headache, did not lose consciousness. Denies seizure- like activity, denies similar symptoms in the past. History of vitals in the ED, hypertensive. Head CT showed large acute nonhemorrhagic infarct of the left side with cerebral hemisphere as well as occipital lobe. MRI showed the same. Repeat head CT, no hemorrhagic conversion. Due to no availability of MICHELLE, transthoracic echo bubble study was negative for PFO Plan: -Per neurology standpoint patient can be discharged on aspirin 81 mg, atorvastatin 40 mg p.o. nightly and Plavix 75 mg p.o. daily -Follow-up with neurology 2 weeks after discharge -Continue physical #History of schizophrenia and bipolar disorder #History of depression #History of anxiety - Management per primary team Patient discussed with my attending Dr Domonique Balbuena MD PGY-3 Disclaimer: Despite multiple revisions, due to the dictation software being used, the document bellow may not be free of grammatical errors including phonetic/typographic errors. However, this does not deter from our commitment to providing health care in the patient's best interest in mind. Attending Provider Attestation/Addendum I personally have reviewed the patient's chart and I agreed with resident's findings, assessment and plan of care. Patient does not have any significant neurological deficit focally but absent started walking as at baseline. Patient is stable for discharge to rehab on aspirin, Plavix and statin. Follow-up in 2 weeks. Encouraged her to participate with the physical therapy.
--- NOTE | 2025-01-22 11:30 | PC.SS ---
Addendum entered by Ambika Byrd 01/22/25 15:50: SS called multiple times to [employer] with no company set up for transport. SS requested updates with No ETA. No transport company assigned. New reservation provided # [id number] Original Note: Follow up note: Patient has d/c orders. Patient had a b.m. late last night. SS coordinated with [employer]. 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
--- NOTE | 2025-01-22 13:45 | ESDS_ITS ---
<Statement entered by Janee Seymour MD - 01/25/25 15:07> I reviewed above note and agree with findings and plans. I have also personally examined the patient with medicine team and went over assessment and plan with medical team including internet marketing consultant and resident physician. Discharge time more than 30 minutes. Planned Discharge Date 01/22/25 DS: Providers Provider Date of admission: 01/16/25 15:59 Primary care physician: Physician No Primary/Family Admitting Provider: Hermes Vazquez DO Attending Provider on Admission: Janee Seymour MD Consults: 01/16/25 17:06 Consult to Neurology / Tele-Neurology Urgent Comment: Consulting Provider: Jeremiah Youssef Referral Physical Therapy Urgent Comment: Physician Instructions: Instructions: stroke Referral Speech Therapy Stat Comment: stroke 01/17/25 01:56 [facility] Referral - Knowledge Deficit Routine Comment: Positive screening for knowledge deficit needs. 01/17/25 10:06 Consult to Cardiology Routine Comment: Consulting Provider: Kalin Pagan 01/19/25 21:46 Referral [place] Routine Comment: Attending Provider on DC: Cathryn Chadwick MD Discharging Provider: Cathryn Chadwick MD DS: Diagnosis Problem List Completed Was Problem List Reviewed/Reconciled?: Yes Hospital Course Hospital Course Hospital course: *patient failed discharge yesterday as she did not have a bowel movement despite several bowel regimens added, bowel movement reported-->DC Summary: Patient is a 69-year-old female with a past medical history of schizophrenia and bipolar disorder, history of depression and anxiety who was admitted for stroke, likely embolic. ER Course: Vitals in the ER, blood pressure 167/78, heart 61, RR 18, 91% on room air. WBC 14.5 elevated with hemoglobin within normal limits. CMP showed sodium within normal limits 145, potassium 4 bicarb 23.9 anion gap of 12, renal function within normal limits, GFR greater than 60, glucose 109, A1c 5.3 Troponin 0.113, 0.083 downtrending EKG not uploaded, but ordered UA showing protein, ketones, RBCs 14, Stroke alert not called given greater than 48 hours patient is not a candidate for tPA/No tele neuro Head CT: Large acute nonhemorrhagic infarct left side of cerebellar hemisphere Hospital Course: Patient is a 69-year-old female with a past medical history of schizophrenia-bipolar, history of depression, history of anxiety who was admitted to the hospital on 01/16/2025 secondary to stroke workup which found on head CT a large acute nonhemorrhagic infarct in left side of the cerebellar hemisphere. Given that the stroke was greater than 48 hours ago since initial symptoms patient was not a candidate for tPA. Medical management was recommended. Patient was started on aspirin, clopidogrel, and atorvastatin. Neurology, Dr. Romeo Osorio, consulted. Cardiology Dr. Pagan consulted. Physical Therapy and Speech Consulted. Dysphasia Diet 3. MRI brain showed acute infarcts left cerebellar hemisphere, left vermis, left cerebellar peduncle, left occipital lob, and left emporal lobe. Repeat CT head showed no acute acute bleeding. Large acute infarct of left cerebellar hemisphere and smaller acute infarct left occipital lobe. Instructions: -Please continue Aspirin 81 mg for stroke prevention -Please continue Clopidogrel 75 mg for stroke prevention -please continue Atorvastatin 40 mg at night to decrease cholesterol -Continue the rest of your medication -Please follow up with your primary care provider within one week of discharge -If your symptoms worsen,please seek immediate medical attention and return to your nearest emergency room and follow up with Dr. 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 #Starvation Ketosis, resolved The patient's plan was discussed with attending Dr. Seymour and senior residents Dr. Mendoza Chadwick MD PGY1 Internal Medicine Senior resident attestation: Patient evaluated and examined at the bedside, plan of care discussed with rest of the team including my attending physician, except as noted. Mendoza PGY2 Time Spent with Patient Time attestation: Total time spent providing and/or coordinating discharge services: Time spent: Greater than 30 minutes Exam Vital Signs Temp Pulse Resp BP Pulse Ox O2 Del Method O2 Flow Rate 97.3 F 70 16 102/80 91 L Room Air 2 01/22/25 12:00 01/22/25 12:00 01/22/25 12:00 01/22/25 12:00 01/22/25 12:00 01/22/25 12:00 01/22/25 04:00 Discharge Plan Plan Patient Disposition: Xfer Skilled Nsg Fac (SNF) Disposition Comment: [facility] Care Plan Goals: Instructions: -Please continue Aspirin 81 mg for stroke prevention -Please continue Clopidogrel 75 mg for stroke prevention -please continue Atorvastatin 40 mg at night to decrease cholesterol -Continue the rest of your medication -Please follow up with your primary care provider within one week of discharge -If your symptoms worsen,please seek immediate medical attention and return to your nearest emergency room and follow up with Dr. Youssef -If you do not have a primary care provider, you may follow up at the [facility] at [address] [place] [address] [address], [place] [address], Follow up with Dr. Kalin Pagan M.D in 1 week from discharge [phone] Prescriptions/Referrals Prescriptions/Med Rec: New clopidogrel 75 mg Tablet 75 mg PO QDAY 14 Days Qty: 14 0RF aspirin [Ecotrin Low Strength] 81 mg Tablet,Delayed Release (Dr/Ec) 81 mg PO QDAY 14 Days Qty: 14 0RF atorvastatin 40 mg tablet 40 mg PO QPM Qty: 14 0RF docusate calcium [Stool Softener (docusate pietro)] 240 mg capsule 240 mg PO BID Qty: 14 0RF Continued ziprasidone HCl 80 mg capsule 1 cap PO BID Patient Comments: TAKE ONE CAPSULE BY MOUTH TWICE DAILY divalproex 500 mg tablet,delayed release (DR/EC) 2 tab PO HS Patient Comments: TAKE TWO TABLETS BY MOUTH AT BEDTIME trihexyphenidyl 5 mg tablet 1 tab PO BIDWM Patient Comments: TAKE ONE TABLET BY MOUTH TWICE DAILY WITH FOOD Referrals: Kalin Pagan MD [Physician] - No Primary/Family,Physician [Primary Care Provider] - Jeremiah Youssef MD [Physician] - Patient/Caregiver Discharge Instructions Education Materials: Preparing Your Home After Stroke, Discharge Instructions for Stroke Print Language: Polish Stand Alone Forms: Lillian Award Info., Patient Portal Info Letter Discharge Order Discharge Orders: Discharge (Routine); Ordered 01/22/25 Ordered By: Cathryn Chadwick Quality Discharge Quality Measures VTE prophylaxis
--- NOTE | 2025-01-22 15:44 | PC.SS ---
RISK COMPLIANCE MANAGER contacted [facility] to obtain update on transport request. [facility] staff informed RISK COMPLIANCE MANAGER that request will be re-routed. Reference number: [id number]. RISK COMPLIANCE MANAGER updated senior planner.
== END 2025-01-22 17:00 | disposition skilled nursing facility (03) | DRG 64 ==
LOC: SERX 13:21 → SERHOLD 16:18 → S2NX 23:16
PROVIDERS: Admitting Provider Student in an Organized Health Care Education/Training Program; Emergency Provider Emergency Medicine; Visit Provider Internal Medicine
DX: I63.442 Cerebral infarction due to embolism of left cerebellar artery (principal); E11.10 Type 2 diabetes mellitus with ketoacidosis without coma; Z59.01 Sheltered homelessness; F31.9 Bipolar disorder, unspecified; F20.9 Schizophrenia, unspecified; I45.10 Unspecified right bundle-branch block; I48.91 Unspecified atrial fibrillation; F41.9 Anxiety disorder, unspecified; I11.9 Hypertensive heart disease without heart failure; R33.9 Retention of urine, unspecified; E66.01 Morbid (severe) obesity due to excess calories; Z86.16 Personal history of COVID-19; Z68.32 Body mass index [BMI] 32.0-32.9, adult; D72.829 Elevated white blood cell count, unspecified; Z79.899 Other long term (current) drug therapy; Z79.82 Long term (current) use of aspirin
CPT/HCPCS: 36415; 70450; 70496; 70498; 70544; 71045; 80053; 80061; 81001; 83036; 83735; 84100; 84443; 84484; 85025; 85610; 85730; 92610; 93005; 93306; 96361; 96372; 96374; 96375; 97163; 99291; A4649; J1200; J1643; J1885; J2060; J2470; J2765; J7030; J7040; Q9967; A9270